=== PATIENT | female | born 1945 | race Caucasian/White ===

== ENCOUNTER → 2017-10-04 16:23 | Outpatient (CLI) | payer MEDICARE, OTHER, SELFPAY ==
[2017-10-04 17:26] LABS: Add Manual Diff / Slide Review NO; Basophils Percent Auto 0.4 % (0-2); Eosinophils Percent Auto 0.7 % (2-4); Hematocrit 34.1 % (36-46); Hemoglobin 11.1 g/dL (12.0-16.0); Lymphocytes Percent Auto 13.4 % (25-40); Mean Corpuscular HGB Conc 32.7 % (30-36); Mean Corpuscular Hemoglobin 31.7 PG (26-34); Mean Corpuscular Volume 96.9 fL (80-100); Monocytes Percent Auto 6.3 % (3-14); Neutrophils Absolute Auto 9500 /uL (3000-5900); Neutrophils Percent Auto 79.2 % (50-75); Platelet Count 336 X10^3/uL (150-400); Red Blood Cell Count 3.52 X10^6/uL (4.0-5.2); Red Cell Distribution Width 14.5 % (11.6-14.8)
== END ==
PROVIDERS: Family Provider Family Medicine; PCP Family Medicine; Visit Provider Family Medicine
DX: D63.8 Anemia in other chronic diseases classified elsewhere (principal)
CPT/HCPCS: 36415; 85025

== ENCOUNTER → 2017-10-23 11:51 | Outpatient (CLI) | payer MEDICARE, OTHER, SELFPAY ==
[2017-10-23 13:06] LABS: Add Manual Diff / Slide Review NO; Basophils Percent Auto 0.3 % (0-2); Eosinophils Percent Auto 0.3 % (2-4); Hematocrit 33.3 % (36-46); Lymphocytes Percent Auto 8.2 % (25-40); Mean Corpuscular HGB Conc 33.1 % (30-36); Mean Corpuscular Hemoglobin 32.4 PG (26-34); Mean Corpuscular Volume 97.7 fL (80-100); Monocytes Percent Auto 5.4 % (3-14); Neutrophils Absolute Auto 9100 /uL (3000-5900); Neutrophils Percent Auto 85.8 % (50-75); Platelet Count 312 X10^3/uL (150-400); Red Blood Cell Count 3.41 X10^6/uL (4.0-5.2); Red Cell Distribution Width 14.7 % (11.6-14.8); White Blood Cell Count 10.6 X10^3/uL (4.5-11.0)
[2017-10-23 14:17] LABS: Alanine Aminotransferase 32 IU/L (9-52); Albumin 4.4 g/dL (3.5-5.0); Albumin Globulin Ratio 1.7 (1.0-2.8); Alkaline Phosphatase 48 U/L (38-126); Aspartate Aminotransferase 19 IU/L (14-36); BUN Creatinine Ratio 21.1 (6-22); Bilirubin Total 0.4 mg/dL (0.2-1.3); Blood Urea Nitrogen 19 mg/dL (7-17); Calcium 9.9 mg/dL (8.4-10.2); Carbon Dioxide 25 mmol/L (22-32); Chloride 105 mmol/L (98-107); Estimated Glomerular Filt Rate > 60.0 mL/min (>60); Globulin 2.6 g/dL (1.7-4.1); Glucose 96 mg/dL (80-110); HEMOLYSIS < 15 (0-50); Potassium 5.1 mmol/L (3.4-5.1); Sodium 142 mmol/L (137-145)
[2017-10-23 14:43] LABS: C-Reactive Protein Quant < 0.5 mg/dL (<1.0)
== END ==
PROVIDERS: Family Provider Family Medicine; PCP Family Medicine
DX: M05.79 Rheumatoid arthritis with rheumatoid factor of multiple sites without organ or systems involvement (principal); Z51.81 Encounter for therapeutic drug level monitoring; Z79.899 Other long term (current) drug therapy
CPT/HCPCS: 36415; 80053; 85025; 86140

== ENCOUNTER 2017-12-05 13:01 | Inpatient (IN) | payer MEDICARE, OTHER, SELFPAY ==
[2017-12-05] VITALS (12 sets, daily range): BP systolic 138–224; BP diastolic 59–89; PULSE 72–83; RESP 13–24; TEMP 36.9; O2SAT 95–99; BMI 22.4
--- NOTE | 2017-12-05 13:27 | PC.NURSE ---
Pt C/o 8/10 pain in her head, both in the front above her left eye as well as in the back of her head on the left. Pt states she has onset of confusion, and difficulty finding words approximately one hour [employer]. Per daughter pt had difficulty getting dressed and finding her words. Per daughter pt has HX of HTN, and hemorragic stroke as well as a TIA. Pt able to follow all commands.
--- NOTE | 2017-12-05 13:47 | ED.NEUROSD ---
HPI - Neuro Symptoms/Deficit General Chief Complaint: Neuro Symptoms/Deficit Stated Complaint: DIARRHEA/SLURRED SPEECH Time Seen by Provider: 12/05/17 13:17 Source: patient Mode of arrival: ambulatory Limitations: no limitations History of Present Illness HPI Narrative: Patient is a 72-year-old female who presents with slurring of speech. It started about 1 hr ago lasted for 30 min and has now resolved. 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 Daughter says that she last saw her normal last evening. However her saw her normal sometime this morning. Daughter witnessed this slurring speech and difficulty finding words. She did not have any facial drooping unilateral weakness. She has peripheral vision loss bilaterally from her previous stroke. She denies any chest pain shortness of breath lightheadedness dizziness nausea vomiting. Timing confirmed by: family member Location: speech History of same: No Severity: mild On Anticoagulants: No Related Data Home Medications Medication Instructions Recorded Confirmed [biotin] #0 02/08/17 10/03/17 prednisone 1 mg tablet 3 mg PO DAILY tab 10/03/17 12/05/17 diphenhydramine HCl [Benadryl] 50 mg PO BEDTIME PRN 12/05/17 12/05/17 Previous Rx's Medication Instructions Recorded Spacer: Inhaler Spacer Device ea #1 02/08/17 gabapentin [Neurontin] 300 mg PO SEE INSTRUCTIONS #180 cap 04/04/17 losartan 50 mg PO BID #90 tab 04/04/17 triamcinolone acetonide 0 gm TOPICAL BID #1 tube 05/02/17 amlodipine [Norvasc] 5 mg PO QDAY #90 tab 05/21/17 oxybutynin chloride 5 mg PO BID #60 tab 08/09/17 escitalopram oxalate [Lexapro] 10 mg PO Q DAY #90 tab 10/02/17 spironolacton-hydrochlorothiaz 1 tab PO QDAY #90 tab 10/02/17 [Aldactazide] atorvastatin 40 mg PO HS #90 tab 10/04/17 omeprazole 20 mg PO QDAY #90 cap 10/16/17 potassium chloride [Klor-Con M20] 40 meq PO BID #360 ter 10/29/17 magnesium chloride 128 mg PO BID #120 tab 11/27/17 Allergies Allergy/AdvReac Type Severity Reaction Status Date / Time Penicillins [PENICILLINS] Allergy Mild ITCH/EARS Verified 10/03/17 16:25 FEEL FULL Sulfa (Sulfonamide Allergy Mild ITCH/EAR Verified 10/03/17 16:25 Antibiotics) FEEL FULL cephalexin [CEPHALEXIN] Allergy Unknown unknown Verified 10/03/17 16:25 coconut oil [COCONUT OIL] Allergy Unknown rash, Verified 10/03/17 16:25 itching Review of Systems Review of Systems GENERAL: Denies chills, fatigue, malaise, fever, sweats, travel HEENT: Denies sinus pain, ear pain, sore throat, difficulty swallowing, neck pain RESPIRATORY: Denies dyspnea, cough, wheezing, hemoptysis, sputum. CARDIOVASCULAR: Denies chest pain, palpitations, orthopnea, edema GASTROINTESTINAL: Denies nausea, vomiting, abdominal pain, diarrhea, constipation, melena. : Denies dysuria, frequency, incontinence, hematuria, urinary retention, flank pain. MUSCULOSKELETAL: Denies weakness, joint pain, or bony pain SKIN: No rash, no erythema, no pruritus NEUROLOGIC: See HPI PSYCHIATRIC: No concerning psychosocial issues. 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) Chronic kidney disease (CKD) stage G3a/A2, moderately decreased glomerular filtration rate (GFR) between 45-59 mL/min/1.73 square meter and albuminuria creatinine ratio between 30-299 mg/g (Chronic 11/18/14) Asthma due to seasonal allergies (Chronic 06/04/15) Eczema (Chronic 03/08/16) Chronic disease anemia (Chronic 07/04/17) Anxiety (Chronic ~1999) Cataract (Chronic ~1998) Eczema (Chronic) Fecal incontinence (Chronic) Hearing loss (Chronic ~1998) Hyperlipidemia (Chronic ~1998) Hypertension (Chronic) Rheumatoid arthritis (Chronic ~1979) Seasonal allergies (Chronic ~2012) Urinary incontinence (Chronic) Vision abnormalities (Chronic) Body mass index (BMI) of 25.0 to 29.9 (Resolved 04/23/14) Chickenpox (Resolved ~1951) Ischemic stroke (Resolved ~2013) Measles (Resolved ~1951) Mumps (Resolved ~1951) Rubella (Resolved ~1951) Surgical History History of ectopic (Resolved ~1971) History of cataract removal with insertion of prosthetic lens (~2015) History of third molar tooth extraction (~1994) History of tonsillectomy (~1951) S/P total abdominal hysterectomy and bilateral salpingo-oophorectomy (~1973) Status post appendectomy (~1973) Status post bunionectomy (~2004) Status post cholecystectomy (~1994) Family History Child Melanoma Social History Smoking Status: Former smoker Exam Initial Vital Signs Initial Vital Signs: Vital Signs Temperature 98.4 F 12/05/17 13:14 Pulse Rate 81 12/05/17 13:14 Respiratory Rate 20 12/05/17 13:14 Blood Pressure 212/88 H 12/05/17 13:14 Pulse Oximetry 96 12/05/17 13:14 GENERAL: Well-appearing, well-nourished and in no acute distress. HEENT: Head atraumatic,EOMI, pupils reactive CARDIOVASCULAR: Regular rate and rhythm without murmurs, rubs or gallops. RESPIRATORY: Breath sounds equal bilaterally, no wheezes rales or rhonchi. ABDOMEN: Soft, nontender. Normoactive bowel sounds all 4 quadrants. No guarding or rebound. : No CVA tenderness EXTREMITIES: Normal range of motion, no clubbing or edema. Neurovascularly intact NEUROLOGICAL: Alert and oriented x4.Normal gait and speech. Cranial nerves II through XII grossly intact. Good [id number], good [id number], strength equal bilaterally, no dysarthria or aphasia, sensation in tact to soft touch bilaterally, no visual changes, no facial droop SKIN: Warm, dry, no laceration, no petechiae, no rashes or lesions. Neuro General: alert, awake and oriented x3 Cranial Nerves: CN's II-XI intact bilaterally and PERRL Cognition: normal cognition Speech: speech normal Gait: normal gait Motor: muscle tone normal throughout and strength 5/5 throughout Sensory Exam: no sensory deficits noted Scores NIH Stroke Scale Level of Conciousness: Alert, keenly responsive Ask month/age: Answers both questions correctly. Open/close eyes, close hand: Performs both tasks correctly Best gaze horizontal: Normal Visual padron: No visual loss Facial palsy: Normal symetrical movement Left arm drift: No drift for full 10 sec Right arm drift: No drift for full 10 sec Left leg drift: No drift for full 10 sec Right leg drift: No drift for full 10 sec Limb ataxia: Absent Sensory on face/arms/legs: Normal, no sensory loss Best language: No aphasia, normal Dysarthria: Normal Extinction or inattention: No abnormality Total NIH Stroke scale score: 0 Course Orders Ordered: ED Orders 12/05/17 13:24 Complete Blood Count AUTO DIFF Stat Comprehensive Metabolic Panel Stat Partial Thromboplastin Time Stat Prothrombin Time INR Stat Troponin I Stat 12/05/17 13:46 EKG-12 Lead Stat 12/05/17 14:10 CT head/brain wo con Stat 12/05/17 18:00 CT head/brain wo con Stat 12/05/17 19:11 Consult to Physician Routine 12/06/17 07:00 MR stroke Stat Discontinued Medications Acetaminophen (Tylenol) 650 mg PO NOW ONE Stop: 12/05/17 15:02 Last Admin: 12/05/17 15:13 Dose: 650 mg Amlodipine Besylate (Norvasc) 5 mg PO NOW ONE Stop: 12/05/17 15:01 Last Admin: 12/05/17 15:14 Dose: 5 mg Aspirin (Aspirin Chew) 324 mg PO NOW ONE Stop: 12/05/17 18:39 Last Admin: 12/05/17 18:40 Dose: 324 mg Sodium Chloride (Normal Saline 0.9%) 1,000 mls @ 150 mls/hr IV CONT YADY Last Infusion: 12/05/17 18:34 Dose: 150 mls/hr Admin: 12/05/17 14:30 Dose: 150 mls/hr Labetalol HCl (Normodyne) 20 mg IV NOW ONE Stop: 12/05/17 14:16 Last Admin: 12/05/17 15:15 Dose: Not Given Losartan Potassium (Cozaar) 50 mg PO NOW ONE Stop: 12/05/17 15:01 Last Admin: 12/05/17 15:14 Dose: 50 mg Vital Signs - 8 hr 12/05/17 13:14 12/05/17 13:24 12/05/17 13:32 Temperature 98.4 F Pulse Rate 81 81 Respiratory Rate 20 18 Blood Pressure 212/88 H Blood Pressure [Left Arm] 224/89 H 199/72 H Pulse Oximetry 96 95 12/05/17 14:00 12/05/17 14:42 12/05/17 15:14 Temperature Pulse Rate 81 79 80 Respiratory Rate 13 16 Blood Pressure 142/64 H Blood Pressure [Left Arm] 204/63 H 151/71 H Pulse Oximetry 97 97 12/05/17 16:19 12/05/17 17:02 12/05/17 17:54 Temperature Pulse Rate 81 75 Respiratory Rate 24 24 Blood Pressure Blood Pressure [Left Arm] 143/63 H 148/59 H 138/61 H Pulse Oximetry 95 97 12/05/17 18:08 12/05/17 18:32 12/05/17 19:00 Temperature 98.5 F Pulse Rate 83 74 72 Respiratory Rate 15 17 Blood Pressure 155/68 H 165/79 H Blood Pressure [Left Arm] 138/61 H Pulse Oximetry 99 99 97 MDM - Neuro Symptoms/Deficit Lab Data Attestation: I reviewed the patient's lab results. Result diagrams: 12/05/17 13:24 12/05/17 13:24 Lab Results 12/05/17 12/05/17 12/05/17 Range/Units 13:24 13:24 13:24 WBC 9.6 (4.5-11.0) X10^3/uL RBC 3.84 L (4.0-5.2) X10^6/uL Hgb 12.6 (12.0-16.0) g/dL Hct 37.2 (36-46) % MCV 96.9 (80-100) fL MCH 32.7 (26-34) PG MCHC 33.7 (30-36) % RDW 13.5 (11.6-14.8) % Plt Count 320 (150-400) X10^3/uL Neut % (Auto) 73.1 (50-75) % Lymph % (Auto) 15.1 L (25-40) % [place] % (Auto) 9.5 (3-14) % Eos % (Auto) 1.7 L (2-4) % Baso % (Auto) 0.6 (0-2) % Neut # (Auto) 7000 H (1965-3044) /uL PT 11.9 (10.1-12.7) SECONDS INR 1.1 (0.9-1.3) APTT 30 (26.4-36.2) SECONDS Sodium 142 (137-145) mmol/L Potassium 3.5 (3.4-5.1) mmol/L Chloride 103 (98-107) mmol/L Carbon Dioxide 28 (22-32) mmol/L BUN 16 (7-17) mg/dL Creatinine 0.90 (0.52-1.04) mg/dL Estimated GFR > 60.0 (>60) mL/min BUN/Creatinine Ratio 17.8 (6-22) Glucose 106 (80-110) mg/dL Calcium 10.0 (8.4-10.2) mg/dL Total Bilirubin 0.6 (0.2-1.3) mg/dL AST 24 (14-36) IU/L ALT 26 (9-52) IU/L Alkaline Phosphatase 52 (38-126) U/L Troponin I < 0.012 (0.01-0.034) ng/mL Total Protein 7.4 (6.3-8.2) g/dL Albumin 4.4 (3.5-5.0) g/dL Globulin 3.0 (1.7-4.1) g/dL Albumin/Globulin Ratio 1.5 (1.0-2.8) Imaging Data CT HEad #1: Radiologist's impression: PROCEDURE: CT HEAD/BRAIN WO CON INDICATIONS: slurring of speech now resolved, hx hemorrhagic cerebellar TECHNIQUE: Noncontrast 4.5 mm thick angled axial sections acquired from the foramen magnum to the vertex, with coronal and sagittal reformats. For radiation dose reduction, the following was used: automated exposure control, adjustment of mA and/or kV according to patient size. COMPARISON: [facility], CT, HEAD WITHOUT CONTRAST, 11/01/2015, 23:53. [facility], CT, HEAD WITHOUT CONTRAST, 07/14/2013, 12:05. [facility], CT, HEAD WITHOUT CONTRAST, 05/06/2013, 10:38. [facility], CT, HEAD WITHOUT CONTRAST, 03/19/2013, 3:09. FINDINGS: Image quality: Excellent. CSF spaces: Basal cisterns are patent. No extra-axial fluid collections. Ventricles are normal in size and shape. Brain: Old right temporal subdural lobe encephalomalacia. There is a 3 mm focus of increased density in the right temporal lobe (se 4 im 39). Punctate foci of calcification in the right frontal lobe. There is generalized cerebral and cerebellar atrophy with low density in the subcortical and periventricular white matter. Skull and face: Calvarium and visualized facial bones are intact, without suspicious lesions. Bilateral frontal bone david holes. Sinuses: Visualized sinuses and mastoids are clear. IMPRESSION: 1. There is a 3 mm area of indeterminate increased density in the right temporal lobe which likely represents parenchymal calcification although a tiny focus of hemorrhage cannot be excluded. Recommend a followup head CT in 6-12 hours for differentiation. 2. Old right temporo-occipital lobe encephalomalacia. Generalized cerebral and cerebellar atrophy with chronic benign ischemic change in the subcortical and periventricular white matter. Dictated by: Ricky Wilson M.D. on 12/05/2017 at 14:16 Ct Head #2: Radiologist's impression: [place] [address] CT Scan Report Signed Patient: Bridget Rodas MR#: [id number] : 1945 Acct:[id number] Age/Sex: 72 / F Date of Service: 12/05/17 Loc: ED Accession Number: [id number] Procedure: CT head/brain wo con Ordering Provider: Amie Bates D.O. PROCEDURE: CT HEAD/BRAIN WO CON INDICATIONS: repeat for possible bleed. history of bleed TECHNIQUE: Noncontrast 4.5 mm thick angled axial sections acquired from the foramen magnum to the vertex, with coronal and sagittal reformats. For radiation dose reduction, the following was used: automated exposure control, adjustment of mA and/or kV according to patient size. COMPARISON: [facility], CT, CT HEAD/BRAIN WO CON, 12/05/2017, 14:02. FINDINGS: Image quality: Excellent. CSF spaces: Basal cisterns are patent. No extra-axial fluid collections. The ventricles are unchanged in size and shape. There is ex vacuo dilatation of the posterior horn of the right lateral ventricle redemonstrated. Brain: No intracranial hemorrhage, mass, or mass effect. The small focus of high density in the right temporal lobe seen on the prior study is unchanged in size and morphology consistent with calcification, likely dystrophic. There is encephalomalacia within the right posterior parietal, temporal, and occipital lobes redemonstrated consistent with a prior infarct. A small region of encephalomalacia is also noted in the right frontal lobe. Bilateral subcortical and periventricular areas of white matter T2 hyperintensity also redemonstrated consistent with moderate chronic white matter small vessel ischemic changes. Skull and face: Calvarium and visualized facial bones demonstrate no acute fractures. There are bilateral frontal david holes. Sinuses: Visualized sinuses and mastoids are clear. IMPRESSION: 1. No acute intracranial hemorrhage or mass effect. The previously identified focus of hyperdensity in the right temporal lobe is unchanged and consistent with probable dystrophic calcification. 2. Right sided encephalomalacia redemonstrated consistent with a prior infarct. 3. Moderate chronic white matter small vessel ischemic changes. ECG Data Attestation: I personally reviewed and interpreted this ECG as follows: Prior ECG tracings: available for review Interpretation: Sinus rhythm rate 83 no acute ischemia normal intervals, IA interval 157, QRS [address] changes MDM Narrative Medical decision making narrative: The patient has symptoms consistent with TIA. She will be placed in observation for further evaluation. I have spoken with Dr. Matt after the initial head CT. Awaiting repeat head CT. Dr. Perdue has been updated a.m. patient's signs and symptoms all on the test results. Repeat head CT remained stable in the likely of an acute bleed. Discharge Plan Departure Patient Disposition: Admitted as Observation Clinical Impression: Brain TIA Discharge Date/Time: 12/05/17 19:29 Interventions: ED Discharge Assessment Last Done: 12/05/17 18:41 Admit Date/Time: 12/05/17 19:06 Admit Provider: Hudson Perdue
[2017-12-05 13:57] LABS: Add Manual Diff / Slide Review NO; Basophils Percent Auto 0.6 % (0-2); Eosinophils Percent Auto 1.7 % (2-4); Hematocrit 37.2 % (36-46); Hemoglobin 12.6 g/dL (12.0-16.0); Lymphocytes Percent Auto 15.1 % (25-40); Mean Corpuscular HGB Conc 33.7 % (30-36); Mean Corpuscular Hemoglobin 32.7 PG (26-34); Mean Corpuscular Volume 96.9 fL (80-100); Monocytes Percent Auto 9.5 % (3-14); Neutrophils Absolute Auto 7000 /uL (3000-5900); Neutrophils Percent Auto 73.1 % (50-75); Platelet Count 320 X10^3/uL (150-400); Red Blood Cell Count 3.84 X10^6/uL (4.0-5.2); Red Cell Distribution Width 13.5 % (11.6-14.8); White Blood Cell Count 9.6 X10^3/uL (4.5-11.0)
[2017-12-05 13:58] LABS: INR 1.1 (0.9-1.3); Prothrombin Time 11.9 SECONDS (10.1-12.7)
[2017-12-05 14:01] LABS: PTT Partial Thromboplastin Tim 30 SECONDS (26.4-36.2)
[2017-12-05 14:02] LABS: Alanine Aminotransferase 26 IU/L (9-52); Albumin 4.4 g/dL (3.5-5.0); Albumin Globulin Ratio 1.5 (1.0-2.8); Alkaline Phosphatase 52 U/L (38-126); Aspartate Aminotransferase 24 IU/L (14-36); BUN Creatinine Ratio 17.8 (6-22); Bilirubin Total 0.6 mg/dL (0.2-1.3); Blood Urea Nitrogen 16 mg/dL (7-17); Carbon Dioxide 28 mmol/L (22-32); Chloride 103 mmol/L (98-107); Estimated Glomerular Filt Rate > 60.0 mL/min (>60); Glucose 106 mg/dL (80-110); HEMOLYSIS < 15 (0-50); Potassium 3.5 mmol/L (3.4-5.1); Sodium 142 mmol/L (137-145); Total Protein 7.4 g/dL (6.3-8.2)
--- NOTE | 2017-12-05 14:10 | DI.CT.S_ITS ---
PROCEDURE: CT HEAD/BRAIN WO CON INDICATIONS: slurring of speech now resolved, hx hemorrhagic cerebellar TECHNIQUE: Noncontrast 4.5 mm thick angled axial sections acquired from the foramen magnum to the vertex, with coronal and sagittal reformats. For radiation dose reduction, the following was used: automated exposure control, adjustment of mA and/or kV according to patient size. COMPARISON: [facility], CT, HEAD WITHOUT CONTRAST, 11/01/2015, 23:53. [facility], CT, HEAD WITHOUT CONTRAST, 07/14/2013, 12:05. [facility], CT, HEAD WITHOUT CONTRAST, 05/06/2013, 10:38. [facility], CT, HEAD WITHOUT CONTRAST, 03/19/2013, 3:09. FINDINGS: Image quality: Excellent. CSF spaces: Basal cisterns are patent. No extra-axial fluid collections. Ventricles are normal in size and shape. Brain: Old right temporal subdural lobe encephalomalacia. There is a 3 mm focus of increased density in the right temporal lobe (se 4 im 39). Punctate foci of calcification in the right frontal lobe. There is generalized cerebral and cerebellar atrophy with low density in the subcortical and periventricular white matter. Skull and face: Calvarium and visualized facial bones are intact, without suspicious lesions. Bilateral frontal bone david holes. Sinuses: Visualized sinuses and mastoids are clear. IMPRESSION: 1. There is a 3 mm area of indeterminate increased density in the right temporal lobe which likely represents parenchymal calcification although a tiny focus of hemorrhage cannot be excluded. Recommend a followup head CT in 6-12 hours for differentiation. 2. Old right temporo-occipital lobe encephalomalacia. Generalized cerebral and cerebellar atrophy with chronic benign ischemic change in the subcortical and periventricular white matter. Dictated by: Ricky Wilson M.D. on 12/05/2017 at 14:16 Approved by: Ricky Wilson M.D. on 12/05/2017 at 14:25
[2017-12-05 14:17] LABS: Troponin I < 0.012 ng/mL (0.01-0.034)
[2017-12-05] MEDS: SODIUM CHLORIDE 0.9% 1,000 ML 150 ML IV (14:30)
--- NOTE | 2017-12-05 14:40 | PC.NURSE ---
Per Pt. headache pain is starting to decrease but still rates pain at 8/10. B/P is lower. 151/71. Per physician held labetalol. Will continue to monitor b/p.
[2017-12-05] MEDS: ACETAMINOPHEN 325 MG TABLET 650 MG PO (15:13)
[2017-12-05] MEDS: AMLODIPINE 2.5 MG TABLET 5 MG PO (15:14)
[2017-12-05] MEDS: LOSARTAN 50 MG TABLET PO (15:14)
--- NOTE | 2017-12-05 18:00 | DI.CT.S_ITS ---
PROCEDURE: CT HEAD/BRAIN WO CON INDICATIONS: repeat for possible bleed. history of bleed TECHNIQUE: Noncontrast 4.5 mm thick angled axial sections acquired from the foramen magnum to the vertex, with coronal and sagittal reformats. For radiation dose reduction, the following was used: automated exposure control, adjustment of mA and/or kV according to patient size. COMPARISON: [facility], CT, CT HEAD/BRAIN WO CON, 12/05/2017, 14:02. FINDINGS: Image quality: Excellent. CSF spaces: Basal cisterns are patent. No extra-axial fluid collections. The ventricles are unchanged in size and shape. There is ex vacuo dilatation of the posterior horn of the right lateral ventricle redemonstrated. Brain: No intracranial hemorrhage, mass, or mass effect. The small focus of high density in the right temporal lobe seen on the prior study is unchanged in size and morphology consistent with calcification, likely dystrophic. There is encephalomalacia within the right posterior parietal, temporal, and occipital lobes redemonstrated consistent with a prior infarct. A small region of encephalomalacia is also noted in the right frontal lobe. Bilateral subcortical and periventricular areas of white matter T2 hyperintensity also redemonstrated consistent with moderate chronic white matter small vessel ischemic changes. Skull and face: Calvarium and visualized facial bones demonstrate no acute fractures. There are bilateral frontal david holes. Sinuses: Visualized sinuses and mastoids are clear. IMPRESSION: 1. No acute intracranial hemorrhage or mass effect. The previously identified focus of hyperdensity in the right temporal lobe is unchanged and consistent with probable dystrophic calcification. 2. Right sided encephalomalacia redemonstrated consistent with a prior infarct. 3. Moderate chronic white matter small vessel ischemic changes. Dictated by: Darron Willis M.D. on 12/05/2017 at 18:13 Approved by: Darron Willis M.D. on 12/05/2017 at 18:21
[2017-12-05] MEDS: ASPIRIN 81 MG TAB 324 MG PO (18:40)
--- NOTE | 2017-12-05 19:44 | PC.NURSE ---
Joseline shift note: 190 patient admitted to from acute care in stable condition. Awake, alert, oriented x 3. Appears forgetful, daughter and patient states forgetfulness has been going on in the past months. No motor or sensory deficit, expresses self, no slurred speech, no difficulty swallowing. No peripheral vision, this is a deficit from a past hemorrhagic stroke. VSS, No dizziness, or blurry vision. No c/o pain or headache. Patient pleasant, asking appropriate questions. Call light within reach.
[2017-12-06] VITALS (7 sets, daily range): BP systolic 142–160; BP diastolic 62–82; PULSE 72–81; RESP 12–18; TEMP 36.2–36.8; O2SAT 94–98
--- NOTE | 2017-12-06 | DI.ECHO.S_ITS ---
[facility]+ [facility] +---------+ : : [address] : : : : [id number] : : : : Phone: [phone] Echocardiogram Report + + :Name: DAPHNEY RAI Study Date: 12/06/2017 Height: 63 in : :[facility] Exam Location: [facility] Weight: 126 lb : : Gender: Female BSA: 1.6 m2 : :: 1945 Age: 72 yrs BP: 155/77 mmHg: :Reason For Study: MURMUR : : Performed By: Italo Cee : :Referring: LYNNE DAVIS : + + Interpretation Summary The left ventricular cavity is small. There is moderate concentric left ventricular hypertrophy. The ejection fraction is estimated to be >80%. The left ventricle is hyperdynamic. Assessment of diastolic parameters indicates a relaxation abnormality of the left ventricle, consistent with normal filling pressures. There is mild aortic stenosis. No other echocardiographic abnormalities seen. Procedure: A two-dimensional transthoracic echocardiogram with color flow and Doppler was performed. The study quality was technically adequate. There is no prior echocardiogram noted for this patient. The patient was in normal sinus rhythm during the exam. Left Ventricle: The left ventricular cavity is small. There is moderate concentric left ventricular hypertrophy. The ejection fraction is estimated to be >80%. The left ventricle is hyperdynamic. There are no focal wall motion abnormalities. Assessment of diastolic parameters indicates a relaxation abnormality of the left ventricle, consistent with normal filling pressures. Right Ventricle: The right ventricle is normal in size and function. Atria: Both atria are normal in size. The interatrial septum is intact with no evidence for an atrial septal defect. Mitral Valve: There is moderate mitral annular calcification. The mitral valve leaflets are slightly calcified. There is trace mitral regurgitation. Aortic Valve: The aortic valve is trileaflet. The aortic valve is mildly calcified. Leaflet mobility is mildly reduced. The peak aortic velocity is 2.01 m/sec. The calculated aortic valve area is 1.7 cm2. There is mild aortic stenosis. No aortic regurgitation is present. Tricuspid Valve: The tricuspid valve is normal in structure and function. There is trace tricuspid regurgitation. Pulmonary artery pressures cannot be estimated because of the lack of a measurable TR jet velocity. Pulmonic Valve: The pulmonic valve is normal in structure and function. There is no pulmonic valvular regurgitation. Great Vessels: The aortic root is normal size. The dimensions of the ascending aorta are normal. The pulmonary artery is normal size. The IVC is of normal diameter and collapses greater than 50% with a sniff. This suggests a low right atrial pressure of 3 mm Hg. Pericardium/ Pleura There is no pericardial effusion. There is no pleural effusion. MMode/2D Measurements & Calculations LVIDd: 3.0 cm LVOT diam: 2.0 cm LVIDs: 1.2 cm Ao root diam: 3.0 cm FS: 60.2 % Aortic Jxn: 2.5 cm EPSS: 0.07 cm asc Aorta Diam: 3.1 cm IVSd: 1.2 cm Ao Arch Diam (Prox Trans): 2.3 cm LVPWd: 1.1 cm LV ramsay. diameter/BSA (cm/m^2): 1.9 LV sys. diameter/BSA (cm/m^2): 0.75 LA dimension: 3.3 cm RA long axis: 3.0 cm LA A2 area: 15.8 cm2 RA area: 6.6 cm2 LA A4 area: 12.3 cm2 RA vol: 12.5 ml LA length (vol): 3.9 cm RA : 7.8 ml/m2 LA vol: 42.0 ml IVC diam: 1.1 cm LA vol index: 26.4 ml/m2 Doppler Measurements & Calculations Ao V2 max: 201.3 cm/sec LVOT Max Charles: 108.0 cm/sec Ao V2 mean: 139.8 cm/sec LV V1 max P.7 mmHg Ao max P.2 mmHg LV V1 VTI: 22.5 cm Ao mean P.7 mmHg JASON(I,D): 1.6 cm2 Ao V2 VTI: 42.6 cm JASON(V,D): 1.7 cm2 sev ratio: 0.53 JASON indexed to BSA (cm^2/m^2): 1.0 MV E max charles: 81.2 cm/sec PA V2 max: 106.8 cm/sec MV A max charles: 126.9 cm/sec PA V2 mean: 78.3 cm/sec MV E/A: 0.64 PA mean P.7 mmHg Med Peak E' Charles: 17.2 cm/sec PA pr(Accel): 36.6 mmHg E/E' med: 4.7 PA Accel Time: 0.09 sec Lat Peak E' Charles: 5.3 cm/sec E/E' lat: 15.4 E/e' average: 10.1 MV dec time: 0.27 sec MVA(VTI): 2.2 cm2 MV V2 mean: 75.8 cm/sec MV mean P.6 mmHg MV V2 VTI: 31.5 cm Reading Physician:03:02 PM
--- NOTE | 2017-12-06 04:35 | PC.NURSE ---
Addendum entered by Ange Sim R.N. 12/06/17 06:38: Pt OOB [id number], steady gait, did c/o headache, VS checked by AEROPLANE PILOT after resettled back in bed, BP 157/75 Pulse-80. No other complaints. 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 Denies pain,chest pain, nausea, respiratory distress. NIH scale-0, however on the Name List sheet, pt unable to recognize the cactus picture as is, stated was a plant. And was able to state there was a tree in the picture but unable to recognize the hammock stating it looked like a bird. Asked pt if she needed to wear her glasses, she didn't need to. Pt able to read the sentences and word list without difficulty. No slurred speech. Pt states feeling asymptomatic. Does have history of peripheral vision loss from previous stroke and pt confirms this. On telemetry monitoring. OOB to BR with SBA with steady gait. MRI screen form completed and signed, in patients chart.
--- NOTE | 2017-12-06 07:00 | DI.MRI.S_ITS ---
PROCEDURE: MR STROKE Pre- and post-contrast brain MRI, non-contrast brain MR angiogram, pre- and postcontrast neck MR angiogram INDICATIONS: tia TECHNIQUE: Brain: Noncontrast axial T1 spin echo, axial T2 fast spin echo, sagittal and axial FLAIR, coronal T2 fast spin echo, axial gradient echo, axial diffusion and ADC through the brain. After the administration of contrast, axial 3D VIBE of the cranial vasculature and brain. Brain MRA: Non-contrast 3-D time of flight MR angiogram, with multiple wcylxsv-zrcgcyawl-isjeepbjtw (MIP) reformats performed. Neck MRA: Axial and sagittal TruFISP through the neck. Coronal dynamic MR angiogram during administration of contrast in the arterial and venous phases, with 3-dimenstional fayqcqc-womfzvizk-kekmpryhiz (MIP) reformats constructed from subtraction images. COMPARISON: [facility], CT, HEAD WITHOUT CONTRAST, 03/19/2013, 3:09. [facility], CT, HEAD WITHOUT CONTRAST, 05/06/2013, 10:38. [facility], MR, BRAIN W&WO CONTRAST, 05/07/2013, 7:30. [facility], CT, CT HEAD/BRAIN WO CON, 12/05/2017, 17:52. FINDINGS: Image quality: Diagnostic. BRAIN: CSF spaces: There is ex vacuo dilatation of the posterior horn of the right lateral ventricle redemonstrated secondary to associated encephalomalacia. There is also generalized mild cerebral volume loss with prominence of the ventricles and sulci. Basal cisterns are patent. No extra-axial fluid collections. Brain: Within the right temporal lobe, there is an ovoid region of cortical and subcortical T2 hyperintensity measuring up to 1.6 x 0.9 cm with a low intensity rim which demonstrates corresponding magnetic susceptibility. The region demonstrates intrinsic T1 hyperintensity. The findings are consistent with a hematoma which is new compared to the recent CT. Finding is separate from the small hyperdense focus of calcification seen on the CT study. In addition, this region demonstrates restricted diffusion with hypointense signal noted on the ADC map compatible with an associated infarct. There is a large area of encephalomalacia redemonstrated within the posterior right parietal, temporal, and occipital lobes. There is associated magnetic susceptibility artifact along the margins of this region consistent with residual hemosiderin from prior intraventricular hemorrhage. In addition, there are scattered small foci of cortical and subcortical magnetic susceptibility bilaterally on the GRE sequence suggestive of amyloid given patient's age and the distribution. There are confluent areas of T2 hyperintensity in the subcortical and periventricular white matter consistent with moderate chronic small vessel ischemic changes. Brain stem appears within normal limits. Skull and face: Calvarial marrow signal is normal. Orbits appear normal. Sinuses: Sinuses and mastoids are clear. BRAIN MR ANGIOGRAM: Anterior circulation: Intracranial internal carotid arteries are normal in size and patent bilaterally. The flow within the paired anterior cerebral arteries is symmetric and patent bilaterally. The flow within the middle cerebral arteries is symmetric and patent bilaterally. The anterior communicating artery is patent. No high-grade stenoses, occlusions, or aneurysms. Posterior circulation: The visualized portions of the vertebral arteries are patent and join to form a patent basilar artery. The flow within the posterior cerebral arteries is symmetric and patent bilaterally. No high-grade stenoses, occlusions, or aneurysms. NECK MR ANGIOGRAM: Carotids: Great vessels demonstrate a four-vessel aortic arch with separate origins of the right PICC is cephalic, left common carotid, left vertebral, and left subclavian arteries they arise from the aortic arch. The origins of the common carotid arteries appear patent. The calibers and courses of both common carotid arteries are normal. There is mild narrowing of approximately 50% in the carotid bulbs. The internal carotid arteries demonstrate normal course and caliber. Posterior circulation: The origins of the vertebral arteries appear patent. More superior portions of both vertebral arteries demonstrate normal course and caliber, and join to form a normal appearing basilar artery. Miscellaneous: Subclavian arteries appear patent. Pre-contrast images through the neck demonstrate no soft tissue abnormalities. IMPRESSION: BRAIN MRI: 1. New ovoid intraparenchymal hematoma in the right temporal lobe with associated restricted diffusion suggestive of a hemorrhagic infarct. 2. Large area of encephalomalacia redemonstrated in the right posterior parietal, temporal, and occipital lobes. Associated magnetic susceptibility along the margins likely represents residual hemosiderin from prior hemorrhage. 3. Moderate chronic white matter small vessel ischemic changes. 3. Scattered foci of subcortical magnetic susceptibility suggestive of amyloid. BRAIN MR ANGIOGRAM: 1. No high-grade stenosis or occlusion of the central intracranial arteries. NECK MR ANGIOGRAM: 1. No high-grade stenosis or occlusion of the head and neck arteries. There is narrowing of approximately 50% in the carotid bulbs bilaterally. Dictated by: Darron Willis M.D. on 12/06/2017 at 12:14 Approved by: Darron Willis M.D. on 12/06/2017 at 12:34
--- NOTE | 2017-12-06 08:33 | PM.HP.1 ---
History of Present Illness Date Patient Seen: 12/06/17 Time Patient Seen: 08:34 Chief complaint: DIARRHEA/SLURRED SPEECH Narrative: Patient is a 72 yo female well known to me with cerebral amyloid angiopathy, history of ischemic stroke (06/2013) after hemorrhagic stroke (03/2013), rheumatoid arthritis, HTN, CKD, whose daughter brought her to the ED after noticing that she was slurring her speech. Patient felt she was normal on 12/04/2017 in the evening but was experiencing horrible, heartburn. She had worked a normal afternoon at [employer], came home and had an egg sandwich. Went to bed and was listening to her audio tapes when she started having diarrhea. She have several episodes overnight which has spontaneously resolved. She also does report a headache but it's not unlike headaches that she gets on occassion. Mainly occipital on the right. She says that on the evening of 12/02 she ate roast beef sandwich and she also talked to her daughter who lives in [facility] who also ate a roast beef sandwich and had abdominal complaints afterwards. Both of them had but the roast beef at [employer] however different stores. She was seen at [facility] eye clinic just last week and her visual field loss is stable with left sided loss. She was started on some new eye drops. Find herself running to things on the left. Her balance can be off at times and we were going to start physical therapy as outpatient after her last visit. Patient History Medical History Campylobacter diarrhea (Resolved) Essential hypertension (Chronic 04/04/11) Rheumatoid arthritis (Chronic) Intracranial hemorrhage (Acute 03/20/13) Cerebral amyloid angiopathy (Chronic 04/25/13) Sensorineural hearing loss (SNHL) of left ear (Chronic) Anxiety (Chronic 07/24/13) Sleep apnea (Chronic 07/28/13) Mixed stress and urge urinary incontinence (Chronic 01/12/14) 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) Chronic kidney disease (CKD) stage G3a/A2, moderately decreased glomerular filtration rate (GFR) between 45-59 mL/min/1.73 square meter and albuminuria creatinine ratio between 30-299 mg/g (Chronic 11/18/14) Asthma due to seasonal allergies (Chronic 06/04/15) Eczema (Chronic 03/08/16) Chronic disease anemia (Chronic 07/04/17) Anxiety (Chronic ~1999) Cataract (Chronic ~1998) Eczema (Chronic) Fecal incontinence (Chronic) Hearing loss (Chronic ~1998) Hyperlipidemia (Chronic ~1998) Hypertension (Chronic) Rheumatoid arthritis (Chronic ~1979) Seasonal allergies (Chronic ~2012) Urinary incontinence (Chronic) Vision abnormalities (Chronic) Body mass index (BMI) of 25.0 to 29.9 (Resolved 04/23/14) Chickenpox (Resolved ~1951) Ischemic stroke (Resolved ~2013) Measles (Resolved ~1951) Mumps (Resolved ~1951) Rubella (Resolved ~1951) Surgical History History of ectopic (Resolved ~1971) History of cataract removal with insertion of prosthetic lens (~2015) History of third molar tooth extraction (~1994) History of tonsillectomy (~1951) S/P total abdominal hysterectomy and bilateral salpingo-oophorectomy (~1973) Status post appendectomy (~1973) Status post bunionectomy (~2004) Status post cholecystectomy (~1994) Family & Social History Social History: household members children Prior Living Arrangements House Safety & Behavioral: Feels Safe in Current Yes Environment Been Physically Hurt or No Threatened By a Person Suicidal Ideation Description None Suicide Plan Description No Plan Tobacco & Substance use: Smoking Status Former smoker alcohol intake frequency holiday/special occasion Substance Use Type marijuana Meds Home Medications Medication Instructions Recorded Confirmed Type Spacer: Inhaler Spacer Device ea #1 02/08/17 10/03/17 Rx [biotin] #0 02/08/17 10/03/17 History gabapentin [Neurontin] 300 mg PO SEE INSTRUCTIONS #180 cap 04/04/17 12/05/17 Rx losartan 50 mg PO BID #90 tab 04/04/17 12/05/17 Rx triamcinolone acetonide 0 gm TOPICAL BID #1 tube 05/02/17 12/05/17 Rx amlodipine [Norvasc] 5 mg PO QDAY #90 tab 05/21/17 12/05/17 Rx oxybutynin chloride 5 mg PO BID #60 tab 08/09/17 12/05/17 Rx escitalopram oxalate [Lexapro] 10 mg PO Q DAY #90 tab 10/02/17 12/05/17 Rx spironolacton-hydrochlorothiaz 1 tab PO QDAY #90 tab 10/02/17 12/05/17 Rx [Aldactazide] prednisone 1 mg tablet 3 mg PO DAILY tab 10/03/17 12/05/17 History atorvastatin 40 mg PO HS #90 tab 10/04/17 12/05/17 Rx omeprazole 20 mg PO QDAY #90 cap 10/16/17 12/05/17 Rx potassium chloride [Klor-Con M20] 40 meq PO BID #360 ter 10/29/17 12/05/17 Rx magnesium chloride 128 mg PO BID #120 tab 11/27/17 12/05/17 Rx diphenhydramine HCl [Benadryl] 50 mg PO BEDTIME PRN 12/05/17 12/05/17 History Allergies Allergy/AdvReac Type Severity Reaction Status Date / Time Penicillins [PENICILLINS] Allergy Mild ITCH/EARS Verified 10/03/17 16:25 FEEL FULL Sulfa (Sulfonamide Allergy Mild ITCH/EAR Verified 10/03/17 16:25 Antibiotics) FEEL FULL cephalexin [CEPHALEXIN] Allergy Unknown unknown Verified 10/03/17 16:25 coconut oil [COCONUT OIL] Allergy Unknown rash, Verified 10/03/17 16:25 itching Review of Systems Constitutional Constitutional: Denies body ache(s), Denies chills, Denies fever(s) and Reports headache(s) Eyes Eyes: Reports blind spots and Denies change in vision ENT Ears, Nose, Mouth, and Throat: Yes abnormal hearing, No difficulty swallowing, Yes headache(s), No hoarseness, No nasal congestion and No nasal discharge Cardiovascular Cardiovascular: Denies chest pain, Denies fainting, Denies fast heart rate, Denies foot swelling, Denies irregular heart rhythm, Denies shortness of breath, Denies shortness of breath with activity and Denies shortness of breath when lying down Respiratory Respiratory: Denies cough, Denies dyspnea and Denies dyspnea on exertion Gastrointestinal Gastrointestinal: Denies dysphagia, Reports heartburn and Denies vomiting Musculoskeletal Musculoskeletal: Reports abnormal gait Neurologic Neurologic: Reports abnormal hearing, Reports abnormal speech, Reports abnormal gait, Denies behavioral changes, Reports confusion, Denies syncope and Reports headache(s) Psychiatric Psychiatric: Denies behavioral changes, Reports confusion and Denies depression Exam Vital Signs (past 8 hours): - 12/06/17 01:50 12/06/17 05:05 Temperature 98.3 F 98.3 F Pulse Rate 76 80 Respiratory Rate 17 12 Blood Pressure 142/62 H 157/76 H Pulse Oximetry 96 95 Oxygen Delivery Method Room Air Narrative Exam Narrative: General: Well-developed, well-nourished, female, no acute distress, sitting up in bed, conversant. Heart: Regular rate and rhythm, 2 to 3/6 systolic murmur best heard at left lower sternal border Lungs: Clear to auscultation bilaterally, no wheezes, rales or rhonchi Abd: BS+, soft, nontender, nondistended, no rebound, no guarding Extremities: Warm and well perfused, no edema, muscle strength 5/5 Objective Labs Result Diagrams: 12/05/17 13:24 12/05/17 13:24 Labs: Laboratory Results - last 24 hr 12/05/17 12/05/17 12/05/17 13:24 13:24 13:24 WBC 9.6 RBC 3.84 L Hgb 12.6 Hct 37.2 MCV 96.9 MCH 32.7 MCHC 33.7 RDW 13.5 Plt Count 320 Neut % (Auto) 73.1 Lymph % (Auto) 15.1 L Stan[place] % (Auto) 9.5 Eos % (Auto) 1.7 L Baso % (Auto) 0.6 Neut # (Auto) 7000 H PT 11.9 INR 1.1 APTT 30 Sodium 142 Potassium 3.5 Chloride 103 Carbon Dioxide 28 BUN 16 Creatinine 0.90 Estimated GFR > 60.0 BUN/Creatinine Ratio 17.8 Glucose 106 Calcium 10.0 Total Bilirubin 0.6 AST 24 ALT 26 Alkaline Phosphatase 52 Troponin I < 0.012 Total Protein 7.4 Albumin 4.4 Globulin 3.0 Albumin/Globulin Ratio 1.5 Assessment & Plan Plan: Assessment/Plan Narrative: 72-year-old female with history of both hemorrhagic and ischemic stroke with new onset of slurring of speech yesterday after an attack of gastroenteritis. 1. TIA in a high risk patient. Known cerebral amyloid angiopathy. She received a dose of aspirin in the emergency department. Will await her MRI results this morning. Will order PT and OT evaluations as well. 2. Gastroenteritis. Fortunately her symptoms have resolved. 3. Hypertension. Significantly elevated readings on presentation. Will let her blood pressures run on the higher side today. Will adjust her medications at discharge if needed. Code status: Full code DVT prophylaxis: Patient is currently ambulatory. Should patient's MRI showed no new insult will be able to discharge patient home later on today. Scores GCS [place] coma scale eye opening: Spontaneous [place] coma scale verbal response: Orientated [place] coma scale motor response: Obey commands [place]andy coma scale total score: 15 Quality VTE Deep Vein Thrombosis/Pulmonary Embolism Present on Admission: No
--- NOTE | 2017-12-06 08:36 | P.HP_ITS ---
History of Present Illness Date Patient Seen: 12/06/17 Time Patient Seen: 08:34 Chief complaint: DIARRHEA/SLURRED SPEECH Narrative: Patient is a 72 yo female well known to me with cerebral amyloid angiopathy, history of ischemic stroke (06/2013) after hemorrhagic stroke (2012), rheumatoid arthritis, HTN, CKD, whose daughter brought her to the ED after noticing that she was slurring her speech. Patient felt she was normal on 12/04/2017 in the evening but was experiencing horrible, heartburn. She had worked a normal afternoon at [employer], came home and had an egg sandwich. Went to bed and was listening to her audio tapes when she started having diarrhea. She have several episodes overnight which has spontaneously resolved. She also does report a headache but it's not unlike headaches that she gets on occassion. Mainly occipital on the right. She says that on the evening of 12/02 she ate roast beef sandwich and she also talked to her daughter who lives in [facility] who also ate a roast beef sandwich and had abdominal complaints afterwards. Both of them had but the roast beef at [employer] however different stores. She was seen at [facility] just last week and her visual field loss is stable with left sided loss. She was started on some new eye drops. Find herself running to things on the left. Her balance can be off at times and we were going to start physical therapy as outpatient after her last visit. Patient History Medical History Campylobacter diarrhea (Resolved) Essential hypertension (Chronic 04/04/11) Rheumatoid arthritis (Chronic) Intracranial hemorrhage (Acute 03/20/13) Cerebral amyloid angiopathy (Chronic 04/25/13) Sensorineural hearing loss (SNHL) of left ear (Chronic) Anxiety (Chronic 07/24/13) Sleep apnea (Chronic 07/28/13) Mixed stress and urge urinary incontinence (Chronic 01/12/14) 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) Chronic kidney disease (CKD) stage G3a/A2, moderately decreased glomerular filtration rate (GFR) between 45-59 mL/min/1.73 square meter and albuminuria creatinine ratio between 30-299 mg/g (Chronic 11/18/14) Asthma due to seasonal allergies (Chronic 06/04/15) Eczema (Chronic 03/08/16) Chronic disease anemia (Chronic 07/04/17) Anxiety (Chronic ~1999) Cataract (Chronic ~1998) Eczema (Chronic) Fecal incontinence (Chronic) Hearing loss (Chronic ~1998) Hyperlipidemia (Chronic ~1998) Hypertension (Chronic) Rheumatoid arthritis (Chronic ~1979) Seasonal allergies (Chronic ~2012) Urinary incontinence (Chronic) Vision abnormalities (Chronic) Body mass index (BMI) of 25.0 to 29.9 (Resolved 04/23/14) Chickenpox (Resolved ~1951) Ischemic stroke (Resolved ~2013) Measles (Resolved ~1951) Mumps (Resolved ~1951) Rubella (Resolved ~1951) Surgical History History of ectopic (Resolved ~1971) History of cataract removal with insertion of prosthetic lens (~2015) History of third molar tooth extraction (~1994) History of tonsillectomy (~1951) S/P total abdominal hysterectomy and bilateral salpingo-oophorectomy (~1973) Status post appendectomy (~1973) Status post bunionectomy (~2004) Status post cholecystectomy (~1994) Family & Social History Social History: household members children Prior Living Arrangements House Safety & Behavioral: Feels Safe in Current Yes Environment Been Physically Hurt or No Threatened By a Person Suicidal Ideation Description None Suicide Plan Description No Plan Tobacco & Substance use: Smoking Status Former smoker alcohol intake frequency holiday/special occasion Substance Use Type marijuana Meds Home Medications Medication Instructions Recorded Confirmed Type Spacer: Inhaler Spacer Device ea #1 02/08/17 10/03/17 Rx [biotin] #0 02/08/17 10/03/17 History gabapentin [Neurontin] 300 mg PO SEE INSTRUCTIONS #180 cap 04/04/17 12/05/17 Rx losartan 50 mg PO BID #90 tab 04/04/17 12/05/17 Rx triamcinolone acetonide 0 gm TOPICAL BID #1 tube 05/02/17 12/05/17 Rx amlodipine [Norvasc] 5 mg PO QDAY #90 tab 05/21/17 12/05/17 Rx oxybutynin chloride 5 mg PO BID #60 tab 08/09/17 12/05/17 Rx escitalopram oxalate [Lexapro] 10 mg PO Q DAY #90 tab 10/02/17 12/05/17 Rx spironolacton-hydrochlorothiaz 1 tab PO QDAY #90 tab 10/02/17 12/05/17 Rx [Aldactazide] prednisone 1 mg tablet 3 mg PO DAILY tab 10/03/17 12/05/17 History atorvastatin 40 mg PO HS #90 tab 10/04/17 12/05/17 Rx omeprazole 20 mg PO QDAY #90 cap 10/16/17 12/05/17 Rx potassium chloride [Klor-Con M20] 40 meq PO BID #360 ter 10/29/17 12/05/17 Rx magnesium chloride 128 mg PO BID #120 tab 11/27/17 12/05/17 Rx diphenhydramine HCl [Benadryl] 50 mg PO BEDTIME PRN 12/05/17 12/05/17 History Allergies Allergy/AdvReac Type Severity Reaction Status Date / Time Penicillins [PENICILLINS] Allergy Mild ITCH/EARS Verified 10/03/17 16:25 FEEL FULL Sulfa (Sulfonamide Allergy Mild ITCH/EAR Verified 10/03/17 16:25 Antibiotics) FEEL FULL cephalexin [CEPHALEXIN] Allergy Unknown unknown Verified 10/03/17 16:25 coconut oil [COCONUT OIL] Allergy Unknown rash, Verified 10/03/17 16:25 itching Review of Systems Constitutional Constitutional: Denies body ache(s), Denies chills, Denies fever(s) and Reports headache(s) Eyes Eyes: Reports blind spots and Denies change in vision ENT Ears, Nose, Mouth, and Throat: Yes abnormal hearing, No difficulty swallowing, Yes headache(s), No hoarseness, No nasal congestion and No nasal discharge Cardiovascular Cardiovascular: Denies chest pain, Denies fainting, Denies fast heart rate, Denies foot swelling, Denies irregular heart rhythm, Denies shortness of breath , Denies shortness of breath with activity and Denies shortness of breath when lying down Respiratory Respiratory: Denies cough, Denies dyspnea and Denies dyspnea on exertion Gastrointestinal Gastrointestinal: Denies dysphagia, Reports heartburn and Denies vomiting Musculoskeletal Musculoskeletal: Reports abnormal gait Neurologic Neurologic: Reports abnormal hearing, Reports abnormal speech, Reports abnormal gait, Denies behavioral changes, Reports confusion, Denies syncope and Reports headache(s) Psychiatric Psychiatric: Denies behavioral changes, Reports confusion and Denies depression Exam Vital Signs (past 8 hours): - 12/06/17 01:50 12/06/17 05:05 Temperature 98.3 F 98.3 F Pulse Rate 76 80 Respiratory Rate 17 12 Blood Pressure 142/62 H 157/76 H Pulse Oximetry 96 95 Oxygen Delivery Method Room Air Narrative Exam Narrative: General: Well-developed, well-nourished, female, no acute distress, sitting up in bed, conversant. Heart: Regular rate and rhythm, 2 to 3/6 systolic murmur best heard at left lower sternal border Lungs: Clear to auscultation bilaterally, no wheezes, rales or rhonchi Abd: BS+, soft, nontender, nondistended, no rebound, no guarding Extremities: Warm and well perfused, no edema, muscle strength 5/5 Objective Labs Result Diagrams: 12/05/17 13:24 12/05/17 13:24 Labs: Laboratory Results - last 24 hr 12/05/17 12/05/17 12/05/17 13:24 13:24 13:24 WBC 9.6 RBC 3.84 L Hgb 12.6 Hct 37.2 MCV 96.9 MCH 32.7 MCHC 33.7 RDW 13.5 Plt Count 320 Neut % (Auto) 73.1 Lymph % (Auto) 15.1 L Cro[place] % (Auto) 9.5 Eos % (Auto) 1.7 L Baso % (Auto) 0.6 Neut # (Auto) 7000 H PT 11.9 INR 1.1 APTT 30 Sodium 142 Potassium 3.5 Chloride 103 Carbon Dioxide 28 BUN 16 Creatinine 0.90 Estimated GFR > 60.0 BUN/Creatinine Ratio 17.8 Glucose 106 Calcium 10.0 Total Bilirubin 0.6 AST 24 ALT 26 Alkaline Phosphatase 52 Troponin I < 0.012 Total Protein 7.4 Albumin 4.4 Globulin 3.0 Albumin/Globulin Ratio 1.5 Assessment & Plan Plan: Assessment/Plan Narrative: 72-year-old female with history of both hemorrhagic and ischemic stroke with new onset of slurring of speech yesterday after an attack of gastroenteritis. 1. TIA in a high risk patient. Known cerebral amyloid angiopathy. She received a dose of aspirin in the emergency department. Will await her MRI results this morning. Will order PT and OT evaluations as well. 2. Gastroenteritis. Fortunately her symptoms have resolved. 3. Hypertension. Significantly elevated readings on presentation. Will let her blood pressures run on the higher side today. Will adjust her medications at discharge if needed. Code status: Full code DVT prophylaxis: Patient is currently ambulatory. Should patient's MRI showed no new insult will be able to discharge patient home later on today. Scores GCS [place] coma scale eye opening: Spontaneous [place] coma scale verbal response: Orientated [place] coma scale motor response: Obey commands [place] coma scale total score: 15 Quality VTE Deep Vein Thrombosis/Pulmonary Embolism Present on Admission: No
[2017-12-06] MEDS: SODIUM CHLORIDE 0.9% FLUSH 10 ML IV ×2 (09:00→20:05)
--- NOTE | 2017-12-06 11:15 | PC.NURSE ---
Day shift: Pt left unit for MRI at approx 1115. Will return in approx 35 minutes. SL. A&Ox3. No pain. Daughter at bedside for support.
--- NOTE | 2017-12-06 11:27 | ST.IPIE ---
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 and stopped Intracranial hemorrhage (Acute Medical 03/20/13) with micro hemorrhages Cerebral amyloid angiopathy (Chronic Medical 04/25/13) 03/31/2013 Large hemorrhagic stroke to the left temporal occipital area 07/03/2013 ischemic stroke right posterior sella Bellair hemisphere Sensorineural hearing loss (SNHL) of left ear (Chronic Medical) Anxiety (Chronic Medical 07/24/13) Sleep apnea (Chronic Medical 07/28/13) Mixed stress and urge urinary incontinence (Chronic Medical 01/12/14) Mechanical low back pain (Chronic Medical 06/11/14) Chronic kidney disease (CKD) stage G3a/A2, moderately decreased glomerular filtration rate (GFR) between 45-59 mL/min/1.73 square meter and albuminuria creatinine ratio between 30-299 mg/g (Chronic Medical 11/18/14) Asthma due to seasonal allergies (Chronic Medical 06/04/15) Eczema (Chronic Medical 03/08/16) Chronic disease anemia (Chronic Medical 07/04/17) Anxiety (Chronic Medical ~1999) Cataract (Chronic Medical ~1998) Eczema (Chronic Medical) Fecal incontinence (Chronic Medical) Hearing loss (Chronic Medical ~1998) Hyperlipidemia (Chronic Medical ~1998) Hypertension (Chronic Medical) Rheumatoid arthritis (Chronic Medical ~1979) Seasonal allergies (Chronic Medical ~2012) Urinary incontinence (Chronic Medical) Vision abnormalities (Chronic Medical) Body mass index (BMI) of 25.0 to 29.9 (Resolved Medical 04/23/14) Chickenpox (Resolved Medical ~1951) Ischemic stroke (Resolved Medical ~2013) Measles (Resolved Medical ~1951) Mumps (Resolved Medical ~1951) Rubella (Resolved Medical ~1951) ST IP Initial Evaulation Report CASINO MANAGER Language Evaluation Start: 12/06/17 11:20 Freq: Status: Active Protocol: Document 12/06/17 11:21 TLC (Rec: 12/06/17 11:27 TLC [id number]) Language Evaluation Session Time Total Visit Minutes 25 Referral Referring Physician Shaka Reason for Referral Slurred speech & difficulty finding words yesterday Vision Vision Status Impaired Comments Limited left peripheral vision from previous CVA in 2012 Occupational Status 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 - Informal Assessment Receptive Language Normal Yes Expressive Language Normal Yes Articulation Normal Yes Cognition Normal Yes Assessment Findings Patient presents with functional receptive and expressive language and intelligible articulation. Her symptoms of slurred speech and word finding difficulty have completely resolved and she is back to her baseline. She completed divergent and convergent naming tasks without difficulty. She participated in conversational exchange appropriately. - Receptive Language - Expressive Language - Recommendations Recommendations No ST warranted at this time. Patient's speech and language skills are at baseline.
--- NOTE | 2017-12-06 11:50 | PT.IIE ---
Surgical History (Last Updated 10/02/17 @ 15:51 by Vanesa Barton) History of ectopic (Resolved ~1971) History of cataract removal with insertion of prosthetic lens (~2015) History of third molar tooth extraction (~1994) History of tonsillectomy (~1951) S/P total abdominal hysterectomy and bilateral salpingo-oophorectomy (~1973) Status post appendectomy (~1973) Status post bunionectomy (~2004) Status post cholecystectomy (~1994) Medical History (Last Reviewed 12/06/17 @ 08:43 by Ailin Matt DO) Campylobacter diarrhea (Resolved) Essential hypertension (Chronic 04/04/11) Rheumatoid arthritis (Chronic) Intracranial hemorrhage (Acute 03/20/13) Cerebral amyloid angiopathy (Chronic 04/25/13) Sensorineural hearing loss (SNHL) of left ear (Chronic) Anxiety (Chronic 07/24/13) Sleep apnea (Chronic 07/28/13) Mixed stress and urge urinary incontinence (Chronic 01/12/14) 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) Chronic kidney disease (CKD) stage G3a/A2, moderately decreased glomerular filtration rate (GFR) between 45-59 mL/min/1.73 square meter and albuminuria creatinine ratio between 30-299 mg/g (Chronic 11/18/14) Asthma due to seasonal allergies (Chronic 06/04/15) Eczema (Chronic 03/08/16) Chronic disease anemia (Chronic 07/04/17) Anxiety (Chronic ~1999) Cataract (Chronic ~1998) Eczema (Chronic) Fecal incontinence (Chronic) Hearing loss (Chronic ~1998) Hyperlipidemia (Chronic ~1998) Hypertension (Chronic) Rheumatoid arthritis (Chronic ~1979) Seasonal allergies (Chronic ~2012) Urinary incontinence (Chronic) Vision abnormalities (Chronic) Body mass index (BMI) of 25.0 to 29.9 (Resolved 04/23/14) Chickenpox (Resolved ~1951) Ischemic stroke (Resolved ~2013) Measles (Resolved ~1951) Mumps (Resolved ~1951) Rubella (Resolved ~1951) Physical Therapy Inpatient Evaluation/Re-Eval M1 PT/OT-IP Prior Functional Status Start: 12/06/17 12:42 Freq: NEEDED Status: Active Protocol: Document 12/06/17 11:50 AB (Rec: 12/06/17 13:07 AB [id number]) Medical Review Prior Functional Status Medical History Reviewed Yes Communication able to make needs known Mobility and Gait pt stated that she is modified independent with all mobilities and ambulation without AD but occasionally uses SPC or 4WW depending on her sciatica per pt Social History Household Members children Living Arrangements House Number of Floors (Floors) One Floor Number of Stairs To Enter/Railing? has no steps to enter but has one step with bilateral wide rails (can only hold on to one rail at a time) to get to the living room (sunken living room) Home Environment Standard Height Toilet Walk in Shower Home Equipment Four Wheel Walker Straight Cane Hand Held Shower Grab Bars In Shower Employment Status Retired Additional Social History Comment stated that she has problems with her balance and family is hoping that she can do outpt PT even before admission to the hospital M2 PT-IP Current Condition Start: 12/06/17 12:42 Freq: NEEDED Status: Active Protocol: Document 12/06/17 11:50 AB (Rec: 12/06/17 13:07 [id number]) Physical Therapy Current Condition Current Condition Evaluation Date 12/06/17 Treatment Diagnosis slurred speech Onset Date 12/05/17 Precautions Other Precautions falls M3 PT-IP Subjective Start: 12/06/17 12:42 Freq: NEEDED Status: Active Protocol: Document 12/06/17 11:50 AB (Rec: 12/06/17 13:07 [id number]) Subjective Physical Therapy Visit Type Type Initial Evaluation Visit Start Time 11:50 Visit Stop Time 12:30 Total Visit Minutes 40 Number of SCALLOP RAKER Visits 0 Physical Therapy Visit Comments Patient Comments pt agreeable to do therapy Therapy Pain Assessment Pain When Pain Assessed During Mobility Pain Present Pain Present Pain Reported Location Lower Back Scale Used pain scale not stated M4 PT-IP Mobility and Gait Start: 12/06/17 12:42 Freq: NEEDED Status: Active Protocol: Document 12/06/17 11:50 AB (Rec: 12/06/17 13:07 [id number]) PT-Bed Mobility Assessment Supine to Sit Supine to Sit Standby Assistance Sit to Supine Sit to Supine Standby Assistance Scooting Scooting to Edge of Bed Standby Assistance Scooting Up and Down in Bed Standby Assistance PT-Transfer Assessment Sit to and From Stand Sit to and from Stand Standby Assistance Equipment Transfer Assistive Device Gait Belt Orthotic/Prosthetic Devices or Brace: No Transfers Transfer Destination Bed Transfer Technique Stand Step Pivot Transfer Ability Level of Assist Standby Assistance Comments Mobility Comments pt is impulsive and requires cues to slow down for safety Gait Assessment Gait Gait Assistance Required: Standby Assistance Distance (Feet) (feet) 100 Able to Maintain Weight Bearing Status Yes During Gait Assistive Devices Assistive Device Gait Belt Orthotic/Prosthetic Devices or Brace: No Gait Deviations General Gait Pattern Decreased Stride Length Decreased Feet Clearance Factors Limiting Gait Function Factors Limiting Gait Function Decreased Activity Tolerance Decreased Strength Pain Poor Balance Poor Safety Awareness Comments Gait Comments pt ambulated without AD SBA ~ 100ft and presents with a shuffling gait. Stair Climbing Assessment Evaluation Level of Assist On Stairs Standby Assistance Technique/Endurance Stair Climbing Direction Ascend and Descend Stair Climbing Technique Step Over Step Number of Steps Climbed 3 Query Text: Comments Stair Climbing Comments pt used R rail to ascend and L rail to descend. PT-Balance Assessment Sitting Balance and Reactions Static Sitting Balance Ability Good Dynamic Sitting Balance Ability Good Standing Balance and Reactions Static Standing Balance Ability Good Dynamic Standing Balance Ability Fair Device Used none Balance Tests Single Limb Standing able to stand on one leg for ~ 5 sec but unsteady Comments Other Balance Tests/Deviations/Treatment tinetti balance assessment: : balance score 10/16 gait score : 09/18 total score: 16/28 which relates to a high fall risk (< or equal to 18 being a high fall risk) M5 PT-IP Objective Assessments Start: 12/06/17 12:42 Freq: NEEDED Status: Active Protocol: Document 12/06/17 11:50 AB (Rec: 12/06/17 13:07 [id number]) Orientation Orientation/Cognition Level of Alertness Alert Orientation Name Age Birthday Situation Safety Awareness Decreased Safety Awareness Gross Range of Motion Lower Extremity ROM Assessment Within Functional Limits Strength Lower Extremity Strength Assessment Within Functional Limits M6 PT-IP Treatment Start: 12/06/17 12:42 Freq: NEEDED Status: Active Protocol: Document 12/06/17 11:50 AB (Rec: 12/06/17 13:07 [id number]) Physical Therapy Treatment Education Education Provided Safety Other Treatments Other Treatment Performed informed family regarding safety and d/c recommendations : 30/10 supervision for first few days, use of AD for ambulation: pt and family agreed. M7 PT-IP Assessment and Plan Start: 12/06/17 12:42 Freq: NEEDED Status: Active Protocol: Document 12/06/17 11:50 AB (Rec: 12/06/17 13:07 AB [id number]) PT Summary Assessment and Plan Potential Rehabilitation Potential Good Status of Condition at Evaluation Stable Summary Impairments Pain ROM Strength Balance Coordination Sensation Tone Cognition Bed Mobility Transfers Gait Activity Tolerance Assessment Summary pt requiring SBA with mobility but has decrease safety awareness and can be impulsive . pt plans to go home and her daughter to assist pt. Goals Bed Mobility Goal Independent Transfer Goal Independent Gait Goal Independent Gait Distance 200 Other Goals up/down 1 step with 1 rail mod I Frequency of Treatment Frequency Of Treatment Once a Day Treatment Plan Physical Therapy Treatment Plan Bed Mobility Training Transfer Training Gait Training Therapeutic Exercise Balance Retraining Discharge Planning Hot or Cold Pack Neuromuscular Re-ed Coordination Retraining Manual Therapy Other Recommendations and Next Treatment ambulation, balance training Focus Recommendations To Nursing Amount of Assist Needed Standby Assistance Discharge Recommendations PT Discharge Recommendations Home with 30/10 Assist Outpatient PT
--- NOTE | 2017-12-06 11:59 | PC.NURSE ---
Day shift: Back on unit at approx 1200. Daughters in room. No c/o pain or discomfort.
[2017-12-06] MEDS: LORazepam 2 MG/ML SYRINGE 0.5 MG IV (13:47)
--- NOTE | 2017-12-06 14:00 | OT.IP.TRT ---
Occupational Therapy Treatment Note M3 OT- IP Subjective and Pain Start: 12/06/17 16:28 Freq: Status: Active Protocol: Document 12/06/17 16:28 [email or web address] (Rec: 12/06/17 16:31 [email or web address] [id number]) OT- Subjective Occupational Therapy Visit Type Type Administrative Note Visit Start Time 14:00 Notes OT referral received. Per chart review pt has hx of cerebral amyloid angiopathy with 2 previous hemorrhagic strokes in 03/2013 and 06/2013. Pt now presents with slurred speech and found to have new hemorrhagic infarct in R temporal lobe. Per RN, hold OT evaluation this Pm due to elevated BP, and pt may be transferred to [facility] for higher level of care. No Charge.
--- NOTE | 2017-12-06 14:19 | CM.DANOTE ---
Discharge Planning/Care Management DCP: assessment: case received, EMR reviewed and met this morning with pt: 0800. Introduced self and role. Pt is a 72 year old female who admitted last night to care of A physician team. PCP: Dr. Matt. Payer: Medicare and [facility]. Pt was hopeful of a d/c later today to home and physician said that if MRI results were stable and she did well with PT/OT this was probable. MRI results are now back, Dr. Matt is aware and she is working on a transfer to for higher level of care. Pt is aware of same and family are gathered in the room. Will follow prn CM Discharge Assessment Start: 12/06/17 14:15 Freq: Status: Active Protocol: Document 12/06/17 14:15 ITV (Rec: 12/06/17 14:19 ITV [id number]) Discharge Planning Assessment Advance Directives? Yes Advance Directives on File No: requested from Med Records History Provided By Patient Medical Record Prior Living Arrangements House Household Members children Comment lives with lauren Carvajal and Alena's . Comment pt works at [employer] Independent with ADL's Yes: basically. has L field visual cut. Is patient alert and oriented? Yes DME Already Rented / Owned FWW / Walker Cane Comment uses occassionally. is considering a white cane as major issue is the L field visual cut and says she hopes this will help others in the community be aware/when shopping etc. Whiteboard Updated in Patient Room with Yes name and ext. # of Steam Cleaner Review Status In Process Next Review Type Continued Stay Review
--- NOTE | 2017-12-06 15:36 | DI.CT.S_ITS ---
PROCEDURE: CT HEAD/BRAIN WO CON INDICATIONS: evaluate bleed TECHNIQUE: Noncontrast 4.5 mm thick angled axial sections acquired from the foramen magnum to the vertex, with coronal and sagittal reformats. For radiation dose reduction, the following was used: automated exposure control, adjustment of mA and/or kV according to patient size. COMPARISON: [facility], CT, HEAD WITHOUT CONTRAST, 07/14/2013, 12:05. [facility], CT, HEAD WITHOUT CONTRAST, 11/01/2015, 23:53. [facility], CT, CT HEAD/BRAIN WO CON, 12/05/2017, 14:02. [facility], CT, CT HEAD/BRAIN WO CON, 12/05/2017, 17:52. FINDINGS: Image quality: Excellent. CSF spaces: Basal cisterns are patent. No extra-axial fluid collections. The ventricles are symmetric in size and shape. Brain: No intracranial bleeds or masses. The previously seen small focus of calcification within the inferior right frontal lobe is faintly seen on the current study and likely relates to parenchymal calcification. There is cerebral volume loss for age, with resultant ventricular and sulcal prominence. There is a remote infarction seen involving right posterior frontal lobe, parietal lobe, and occipital lobe. There are periventricular and deep white matter chronic small vessel ischemic changes. There is intracranial internal carotid artery atherosclerosis. Skull and face: For also seen involving the frontal calvarium on both sides. Calvarium and visualized facial bones appear intact, without suspicious lesions. Sinuses: Visualized sinuses and mastoids are clear. IMPRESSION: No acute hemorrhage can be seen. Remote right posterior cerebral hemisphere infarction. Dictated by: Tomy Burgos M.D. on 12/06/2017 at 15:24 Approved by: Tomy Burgos M.D. on 12/06/2017 at 15:28
--- NOTE | 2017-12-06 17:29 | PC.NURSE ---
Joseline shift note: Patient awake and alert, returned from CT scan. Neurological assessment WNL, no sensory or motor deficits. No slurred speech, dizziness, or loss of balance. NIH 3 due to peripheral visual loss, which is unchanged from past stroke. Dr. Fisher at bedside. Daughters at bedside providing supportive care. C/O pain to occipital area, described as intermittent ache 07/17. Will make MD aware.
[2017-12-06] MEDS: hydroCHLOROthiazide 25 MG TABLET PO (18:23)
[2017-12-06] MEDS: ACETAMINOPHEN 325 MG TABLET 650 MG PO (18:23)
[2017-12-06] MEDS: OXYBUTYNIN 5 MG TABLET PO (20:05)
[2017-12-06] MEDS: LOSARTAN 50 MG TABLET PO (20:05)
[2017-12-07 03:10] VITALS: BP 152/69; PULSE 72; RESP 16; TEMP 36.7; O2SAT 96
[2017-12-07 07:59] LABS: BUN Creatinine Ratio 12.5 (6-22); Blood Urea Nitrogen 10 mg/dL (7-17); Calcium 9.4 mg/dL (8.4-10.2); Carbon Dioxide 30 mmol/L (22-32); Chloride 103 mmol/L (98-107); Estimated Glomerular Filt Rate > 60.0 mL/min (>60); Glucose 103 mg/dL (80-110); HEMOLYSIS < 15 (0-50); Sodium 142 mmol/L (137-145)
[2017-12-07 08:38] VITALS: BP 152/70; PULSE 82; RESP 16; TEMP 36.7; O2SAT 95
--- NOTE | 2017-12-07 08:40 | P.DS_ITS ---
History of Present Illness Chief complaint: DIARRHEA/SLURRED SPEECH Narrative: Patient is a 72 yo female well known to me with cerebral amyloid angiopathy, history of ischemic stroke (06/2013) after hemorrhagic stroke (2012), rheumatoid arthritis, HTN, CKD, whose daughter brought her to the ED after noticing that she was slurring her speech. Patient felt she was normal on 12/04/2017 in the evening but was experiencing horrible, heartburn. She had worked a normal afternoon at [employer], came home and had an egg sandwich. Went to bed and was listening to her audio tapes when she started having diarrhea. She have several episodes overnight which has spontaneously resolved. She also does report a headache but it's not unlike headaches that she gets on occassion. Mainly occipital on the right. She says that on the evening of 12/02 she ate roast beef sandwich and she also talked to her daughter who lives in [facility] who also ate a roast beef sandwich and had abdominal complaints afterwards. Both of them had but the roast beef at [facility] however different stores. She was seen at [facility] eye clinic just last week and her visual field loss is stable with left sided loss. She was started on some new eye drops. Find herself running to things on the left. Her balance can be off at times and we were going to start physical therapy as outpatient after her last visit. Discharge Providers Date of admission: 12/06/17 14:17 Primary care physician: Ailin Matt DO Consults: 12/05/17 19:11 Consult to Physician Routine Comment: Consulting Provider: Hudson Perdue Reason for consultation: admission Has provider been notified: Yes 12/06/17 08:59 Consult to Discharge Planning Routine Comment: Consult to Occupational Therapy Evaluate & Treat Comment: Physician Instructions: Evaluate and treat Consult to Physical Therapy Evaluate & Treat Comment: Physician Instructions: Evaluate and Treat Consult to Speech Therapy Evaluate & Treat Comment: Physician Instructions: Evaluate and treat Discharge provider: Ailin Matt DO Summary Discharge Diagnosis: Subacute ischemic stroke Cerebral amyloid angiopathy Hypertension Aphasia Hypokalemia Rheumatoid arthritis Impaired balance Hospital Course: [address] [address] History & Physical Report Patient: Bridget Rodas MR#: [id number] : 1945 Acct:[id number] Age/Sex: 72 / F ADM Date: 12/05/17 Loc: 203-[address]: Hudson Perdue MD History of Present Illness Date Patient Seen: 12/06/17 Time Patient Seen: 08:34 Chief complaint: DIARRHEA/SLURRED SPEECH Narrative: Patient is a 72 yo female well known to me with cerebral amyloid angiopathy, history of ischemic stroke (06/2013) after hemorrhagic stroke (2012), rheumatoid arthritis, HTN, CKD, whose daughter brought her to the ED after noticing that she was slurring her speech. Patient felt she was normal on 12/04/2017 in the evening but was experiencing horrible, heartburn. She had worked a normal afternoon at [employer], came home and had an egg sandwich. Went to bed and was listening to her audio tapes when she started having diarrhea. She have several episodes overnight which has spontaneously resolved. She also does report a headache but it's not unlike headaches that she gets on occassion. Mainly occipital on the right. She says that on the evening of 12/02 she ate roast beef sandwich and she also talked to her daughter who lives in [facility] who also ate a roast beef sandwich and had abdominal complaints afterwards. Both of them had but the roast beef at [employer] however different stores. She was seen at [facility] eye clinic just last week and her visual field loss is stable with left sided loss. She was started on some new eye drops. Find herself running to things on the left. Her balance can be off at times and we were going to start physical therapy as outpatient after her last visit. Patient History Medical History Campylobacter diarrhea (Resolved) Essential hypertension (Chronic 04/04/11) Rheumatoid arthritis (Chronic) Intracranial hemorrhage (Acute 03/20/13) Cerebral amyloid angiopathy (Chronic 04/25/13) Sensorineural hearing loss (SNHL) of left ear (Chronic) Anxiety (Chronic 07/24/13) Sleep apnea (Chronic 07/28/13) Mixed stress and urge urinary incontinence (Chronic 01/12/14) 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) Chronic kidney disease (CKD) stage G3a/A2, moderately decreased glomerular filtration rate (GFR) between 45-59 mL/min/1.73 square meter and albuminuria creatinine ratio between 30-299 mg/g (Chronic 11/18/14) Asthma due to seasonal allergies (Chronic 06/04/15) Eczema (Chronic 03/08/16) Chronic disease anemia (Chronic 07/04/17) Anxiety (Chronic ~1999) Cataract (Chronic ~1998) Eczema (Chronic) Fecal incontinence (Chronic) Hearing loss (Chronic ~1998) Hyperlipidemia (Chronic ~1998) Hypertension (Chronic) Rheumatoid arthritis (Chronic ~1979) Seasonal allergies (Chronic ~2012) Urinary incontinence (Chronic) Vision abnormalities (Chronic) Body mass index (BMI) of 25.0 to 29.9 (Resolved 04/23/14) Chickenpox (Resolved ~1951) Ischemic stroke (Resolved ~2013) Measles (Resolved ~1951) Mumps (Resolved ~1951) Rubella (Resolved ~1951) Surgical History History of ectopic (Resolved ~1971) History of cataract removal with insertion of prosthetic lens (~2015) History of third molar tooth extraction (~1994) History of tonsillectomy (~1951) S/P total abdominal hysterectomy and bilateral salpingo-oophorectomy (~1973) Status post appendectomy (~1973) Status post bunionectomy (~2004) Status post cholecystectomy (~1994) Family & Social History Social History: household members children Prior Living Arrangements House Safety & Behavioral: Feels Safe in Current Yes Environment Been Physically Hurt or No Threatened By a Person Suicidal Ideation Description None Suicide Plan Description No Plan Tobacco & Substance use: Smoking Status Former smoker alcohol intake frequency holiday/special occasion Substance Use Type marijuana Meds Home Medications Medication Instructions Recorded Confirmed Type Spacer: Inhaler Spacer Device ea #1 02/08/17 10/03/17 Rx [biotin] #0 02/08/17 10/03/17 History gabapentin [Neurontin] 300 mg PO SEE INSTRUCTIONS #180 cap 04/04/17 12/05/17 Rx losartan 50 mg PO BID #90 tab 04/04/17 12/05/17 Rx triamcinolone acetonide 0 gm TOPICAL BID #1 tube 05/02/17 12/05/17 Rx amlodipine [Norvasc] 5 mg PO QDAY #90 tab 05/21/17 12/05/17 Rx oxybutynin chloride 5 mg PO BID #60 tab 08/09/17 12/05/17 Rx escitalopram oxalate [Lexapro] 10 mg PO Q DAY #90 tab 10/02/17 12/05/17 Rx spironolacton-hydrochlorothiaz 1 tab PO QDAY #90 tab 10/02/17 12/05/17 Rx [Aldactazide] prednisone 1 mg tablet 3 mg PO DAILY tab 10/03/17 12/05/17 History atorvastatin 40 mg PO HS #90 tab 10/04/17 12/05/17 Rx omeprazole 20 mg PO QDAY #90 cap 10/16/17 12/05/17 Rx potassium chloride [Klor-Con M20] 40 meq PO BID #360 ter 10/29/17 12/05/17 Rx magnesium chloride 128 mg PO BID #120 tab 11/27/17 12/05/17 Rx diphenhydramine HCl [Benadryl] 50 mg PO BEDTIME PRN 12/05/17 12/05/17 History Allergies Allergy/AdvReac Type Severity Reaction Status Date / Time Penicillins [PENICILLINS] Allergy Mild ITCH/EARS Verified 10/03/17 16:25 FEEL FULL Sulfa (Sulfonamide Allergy Mild ITCH/EAR Verified 10/03/17 16:25 Antibiotics) FEEL FULL cephalexin [CEPHALEXIN] Allergy Unknown unknown Verified 10/03/17 16:25 coconut oil [COCONUT OIL] Allergy Unknown rash, Verified 10/03/17 16:25 itching Review of Systems Constitutional Constitutional: Denies body ache(s), Denies chills, Denies fever(s) and Reports headache(s) Eyes Eyes: Reports blind spots and Denies change in vision ENT Ears, Nose, Mouth, and Throat: Yes abnormal hearing, No difficulty swallowing, Yes headache(s), No hoarseness, No nasal congestion and No nasal discharge Cardiovascular Cardiovascular: Denies chest pain, Denies fainting, Denies fast heart rate, Denies foot swelling, Denies irregular heart rhythm, Denies shortness of breath , Denies shortness of breath with activity and Denies shortness of breath when lying down Respiratory Respiratory: Denies cough, Denies dyspnea and Denies dyspnea on exertion Gastrointestinal Gastrointestinal: Denies dysphagia, Reports heartburn and Denies vomiting Musculoskeletal Musculoskeletal: Reports abnormal gait Neurologic Neurologic: Reports abnormal hearing, Reports abnormal speech, Reports abnormal gait, Denies behavioral changes, Reports confusion, Denies syncope and Reports headache(s) Psychiatric Psychiatric: Denies behavioral changes, Reports confusion and Denies depression Exam Vital Signs (past 8 hours): - 12/06/17 01:50 12/06/17 05:05 Temperature 98.3 F 98.3 F Pulse Rate 76 80 Respiratory Rate 17 12 Blood Pressure 142/62 H 157/76 H Pulse Oximetry 96 95 Oxygen Delivery Method Room Air Narrative Exam Narrative: General: Well-developed, well-nourished, female, no acute distress, sitting up in bed, conversant. Heart: Regular rate and rhythm, 2 to 3/6 systolic murmur best heard at left lower sternal border Lungs: Clear to auscultation bilaterally, no wheezes, rales or rhonchi Abd: BS+, soft, nontender, nondistended, no rebound, no guarding Extremities: Warm and well perfused, no edema, muscle strength 5/5 Objective Labs Result Diagrams: 12/05/17 13:24 document embedded image 12/05/17 13:24 document embedded image Labs: Laboratory Results - last 24 hr 12/05/17 12/05/17 12/05/17 13:24 13:24 13:24 WBC 9.6 RBC 3.84 L Hgb 12.6 Hct 37.2 MCV 96.9 MCH 32.7 MCHC 33.7 RDW 13.5 Plt Count 320 Neut % (Auto) 73.1 Lymph % (Auto) 15.1 L [place] % (Auto) 9.5 Eos % (Auto) 1.7 L Baso % (Auto) 0.6 Neut # (Auto) 7000 H PT 11.9 INR 1.1 APTT 30 Sodium 142 Potassium 3.5 Chloride 103 Carbon Dioxide 28 BUN 16 Creatinine 0.90 Estimated GFR > 60.0 BUN/Creatinine Ratio 17.8 Glucose 106 Calcium 10.0 Total Bilirubin 0.6 AST 24 ALT 26 Alkaline Phosphatase 52 Troponin I < 0.012 Total Protein 7.4 Albumin 4.4 Globulin 3.0 Albumin/Globulin Ratio 1.5 72-year-old female with history of both hemorrhagic (03/2013) and ischemic stroke (06/2013) with new onset of slurring of speech yesterday after an attack of gastroenteritis. Hypertension. History of cerebral amyloid angiopathy. Subacute right temporal ischemic stroke found on MRI. No obvious neurologic sequelae at this point. Her aphasia resolved. Has surrounding hematoma which is stable on repeat CT scan. Discussed with [facility] which recommends blood pressure control to 130/80, no statins or SSRI's, NO anticoagulants. Hypertension. Significantly elevated readings on presentation. let her blood pressures run on the higher side while awaiting MRI results. Restarted her home medications with reduction to the 150/80 range. Will change her losartan to irbesartan. Increase amlodipine to 10 mg if necessary early next week. We had an extensive discussion with daughters on appropriate diet. Mild Hypokalemia. Did not give her home dose of potassium during admission but will restart at discharge. Impaired balance: will do physical therapy as outpatient. Rheumatoid arthritis. home medications were continued. Depression with anxiety. Will stop her escitalopram. Will research her chart notes since I think we did get the go ahead from neurology before starting this medication. Consider a non-SSRI medication. Code status: Full code DVT prophylaxis: Patient is currently ambulatory and anticoagulants are contraindicated. Status at Discharge Cognitive/behavioral status at discharge: Cognitively intact Functional status at discharge: independent ambulation Overall status at discharge: patient is back to baseline Time Spent with Patient Greater than 30 minutes Exam Vital Signs (past 8 hours): - 12/07/17 03:10 Temperature 98.1 F Pulse Rate 72 Respiratory Rate 16 Blood Pressure 152/69 H Pulse Oximetry 96 Oxygen Delivery Method Room Air Oxygen Flow Rate 0 Objective Labs Result Diagrams: 12/05/17 13:24 12/07/17 06:50 Labs: Laboratory Results - last 24 hr 12/07/17 06:50 Sodium 142 Potassium 3.0 L Chloride 103 Carbon Dioxide 30 BUN 10 Creatinine 0.80 Estimated GFR > 60.0 BUN/Creatinine Ratio 12.5 Glucose 103 Calcium 9.4 Discharge Plan Discharge Plan Patient Disposition: Home Provider Discharge Instructions Diet: Diet as Tolerated and Low-sodium Diet comment: nonstarchy vegetables, fruits, whole grains and lean meats Activity: as tolerated Other treatments: Physical therapy for balance Skin/Wound/Dressing Care Report to your healthcare provider any signs of infection, such as:: chills, fever, night sweats and increased pain Discharge Data Primary Care Provider: Ailin Matt Attending Provider: Ailin Matt Admit Date/Time: 12/06/17 14:17 Quality VTE Deep Vein Thrombosis/Pulmonary Embolism Present on Admission: No
--- NOTE | 2017-12-07 09:06 | OT.IP.EVAL ---
Past Medical History (Last Reviewed 12/06/17 @ 08:43 by Ailin Matt DO) Campylobacter diarrhea (Resolved) Essential hypertension (Chronic 04/04/11) Rheumatoid arthritis (Chronic) Intracranial hemorrhage (Acute 03/20/13) Cerebral amyloid angiopathy (Chronic 04/25/13) Sensorineural hearing loss (SNHL) of left ear (Chronic) Anxiety (Chronic 07/24/13) Sleep apnea (Chronic 07/28/13) Mixed stress and urge urinary incontinence (Chronic 01/12/14) 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) Chronic kidney disease (CKD) stage G3a/A2, moderately decreased glomerular filtration rate (GFR) between 45-59 mL/min/1.73 square meter and albuminuria creatinine ratio between 30-299 mg/g (Chronic 11/18/14) Asthma due to seasonal allergies (Chronic 06/04/15) Eczema (Chronic 03/08/16) Chronic disease anemia (Chronic 07/04/17) Anxiety (Chronic ~1999) Cataract (Chronic ~1998) Eczema (Chronic) Fecal incontinence (Chronic) Hearing loss (Chronic ~1998) Hyperlipidemia (Chronic ~1998) Hypertension (Chronic) Rheumatoid arthritis (Chronic ~1979) Seasonal allergies (Chronic ~2012) Urinary incontinence (Chronic) Vision abnormalities (Chronic) Body mass index (BMI) of 25.0 to 29.9 (Resolved 04/23/14) Chickenpox (Resolved ~1951) Ischemic stroke (Resolved ~2013) Measles (Resolved ~1951) Mumps (Resolved ~1951) Rubella (Resolved ~1951) Surgical History (Last Updated 10/02/17 @ 15:51 by Vanesa Barton) History of ectopic (Resolved ~1971) History of cataract removal with insertion of prosthetic lens (~2015) History of third molar tooth extraction (~1994) History of tonsillectomy (~1951) S/P total abdominal hysterectomy and bilateral salpingo-oophorectomy (~1973) Status post appendectomy (~1973) Status post bunionectomy (~2004) Status post cholecystectomy (~1994) Occupational Therapy Inpatient Evaluation/Re-Eval M1 PT/OT-IP Prior Functional Status Start: 12/06/17 12:42 Freq: NEEDED Status: Active Protocol: Document 12/07/17 09:06 ANGELITO (Rec: 12/07/17 12:11 [facility] [id number]) Medical Review Prior Functional Status Medical History Reviewed Yes Communication able to make needs known with occasional wording problems per daughter Mobility and Gait pt stated that she is modified independent with all mobilities and ambulation without AD but occasionally uses SPC or 4WW depending on her sciatica per pt; pt admits to occasional falls Activities of Daily Living and IADL's Pt indep with all self care including showering. Daughter assists with meds, finances, transport, cooking and siebel solution architect. Pt does do some simple meal preparation when daughter away. Prior Functional Level (Other details) Daughter lives with pt but works patient support partner. Daughter's partner or other family with pt when daughter away. 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 Social History Household Members children Living Arrangements House Number of Floors (Floors) One Floor Number of Stairs To Enter/Railing? no stairs to enter, 1 stair with rail to sunken living room Home Environment Standard Height Toilet Walk in Shower Home Equipment Front Wheel Walker Four Wheel Walker Straight Cane Grab Bars In Shower Employment Status Retired Additional Social History Comment pt stands to shower, does not have shower seat M2 OT-IP Current Condition Start: 12/06/17 16:28 Freq: Status: Active Protocol: Document 12/07/17 09:06 MU (Rec: 12/07/17 12:11 [facility] [id number]) Occupational Therapy Current Condition Current Condition Evaluation Date 12/07/17 Treatment Diagnosis assess for ability to return home Diagnosis Onset Date 12/06/17 Post Operative Precautions Other Precautions falls M3 OT- IP Subjective and Pain Start: 12/06/17 16:28 Freq: Status: Active Protocol: Document 12/07/17 09:06 MU (Rec: 12/07/17 12:11 [facility] [id number]) OT- Subjective Occupational Therapy Visit Type Type Initial Evaluation Visit Start Time 08:40 Visit Stop Time 09:06 Total Visit Minutes 26 Notes Pt's second daughter here this session, not the one she lives with. Occupational Therapy Visit Comments Patient Comments I can't wait to get home and take a shower in my own bathroom. Patient/Caregiver Goals to go home today OT Pain Assessment Pain When Pain Assessed After Treatment Pain Present Pain Present Denied Pain M4 OT- IP ADL's Start: 12/06/17 16:28 Freq: Status: Active Protocol: Document 12/07/17 09:06 PJM (Rec: 12/07/17 12:11 [facility] [id number]) OT [id number] General Evaluation Self-Feeding Ability Independent OT ADL-Grooming General Evaluation Grooming Ability Standby Assistance Areas Needing Assistance Combing/Brushing Hair Face Washing Comments OT Grooming Comments Pt impulsive with fair thoroughness with grooming tasks. Significant inattention to detail noted. OT ADL-Oral Care General Eval Oral Care Ability Standby Assistance Areas of Assistance Brushing Teeth Devices Oral Care Devices Toothbrush OT ADL-Dressing General Eval Upper Body Dressing Ability Minimal Assistance Lower Body Dressing Ability Standby Assistance Comments OT Dressing Comments Pt has significant difficulty orienting clothing, putting bra on inside out and shirt on backwards until mod verbal cues provided. Daughter states this is not a new symptom for pt. Daughter assists pt with dressing at home. OT ADL-Toileting General Evaluation Toileting Ability Independent OT ADL-Bathing Comments OT Bathing Comments Pt declines to shower here. Recommend pt obtain shower seat with back due to decreased balance. M5 OT- IP IADL's Start: 12/06/17 16:28 Freq: Status: Active Protocol: Document 12/07/17 09:06 PJM (Rec: 12/07/17 12:11 [facility] [id number]) OT-Instrumental Activities of Daily Living Deficits IADL Deficits Identified Deficits Home Safety Awareness Awareness of Need for Assistance at Home Decreased Awareness Medication Management Medication Management Caregiver Administers Money Management Money Management Caregiver Provides Assistance Meal Preparation Meal Preparation Caregiver Provides Assist Meal Preparation Comments Pt impulsive with significantly decreased L homonymous hemianopsia with some L visual spatial neglect. Recommend supervision for all hot meal prep at home. Informatics Application Analyst Informatics Application Analyst Caregiver Provides Assist Driving Driving Caregiver Provides Assist M6 OT- IP Functional Cognition Start: 12/06/17 16:28 Freq: Status: Active Protocol: Document 12/07/17 09:06 PJ (Rec: 12/07/17 12:11 [facility] [id number]) Cognitive Factors Limiting Selfcare Function Cognitive Ability Level of Alertness Alert Patient Orientation Name Attention Span Ability Capable of Focused Attention Capable of Sustained Attention Ability to Follow Commands Able to Follow One Step Commands Safety Awareness Decreased Recall of Precautions Underestimates Need for Assistance Problem Solving Ability Needs Assist to Identify Solutions Cognitive Comments Cognitive Assessment Comments Pt quite impulsive which daughter reports is not a new symptom. OT- Vision and Hearing OT- Hearing Assessment OT- Hearing Assessment WFL OT- Vision Assessment Visual Nix Impaired Visual Spacial Neglect Left Vision Assessment Comments L homonymous hemianopsia present since previous strokes . Pt denies any new vision changes since admit. M7 OT- IP Mobility and Balance Start: 12/06/17 16:28 Freq: Status: Active Protocol: Document 12/07/17 09:06 PJ (Rec: 12/07/17 12:11 [facility] [id number]) OT-Transfer Assessment Sit to and From Stand Sit to and from Stand Standby Assistance Transfers Transfer Ability Standby Assistance Technique Transfer Destination Chair Transfer Technique Stand Step Pivot Devices Transfer Assistive Devices None OT- Gait Assessment Gait Gait Assistance Required: Standby Assistance Distance (Feet) (feet) 15 Assistive Devices Assistive Device None Comments Gait Ability Comments Pt recommended cane or FWW for safety due to decreased balance and shuffling gait. OT- Balance Assessment Sitting Balance and Reactions Static Sitting Balance Ability Good Dynamic Sitting Balance Ability Good Standing Balance and Reactions Static Standing Balance Ability Good Dynamic Standing Balance Ability Fair Comments Other Balance Tests/Deviations/Treatment Per P.T. balance assessment, : pt at high fall risk. M8 OT- IP Objective Assessments Start: 12/06/17 16:28 Freq: Status: Active Protocol: Document 12/07/17 09:06 PJ (Rec: 12/07/17 12:11 [facility] [id number]) OT Gross Range of Motion Upper Extremity Range of Motion Assessment Within Functional Limits OT Strength Upper Extremity Strength Assessment Within Functional Limits OT- Coordination Assessment Comments Coordination Comments BUE WFL OT Sensation Assessment Comments Summary Comments BUE WNL, pt denies any deficits Edema Edema Absent M9 OT- IP Assessment and Plan Start: 12/06/17 16:28 Freq: Status: Active Protocol: Document 12/07/17 09:06 PJ (Rec: 12/07/17 12:11 [facility] [id number]) OT Summary Assessment and Plan Potential Analytic Complexity at Evaluation Low Summary Assessment Summary Low complexity OT assessment completed. Pt appears to be at baseline level of function and her daughter agrees with this assessment. Pt has residual L homonymous hemianopsia with L visual spatial neglect, impulsivity, significant perceptual deficits and decreased safety awareness/insight from previous stroke as noted above. Pt has no focal deficits in BUE sensorimotor function. Recommend 24/7 assist when pt returns home for safety, especially with meal prep tasks and showering. Per P.T. assessment pt is high risk for fall. No further OT services indicated at this time. Frequency of Treatment Frequency Of Treatment Discharge Discharge Recommendations OT Discharge Recommendations Home with 24/7 Assist Home Equipment Needs shower seat with back
[2017-12-07] MEDS: SODIUM CHLORIDE 0.9% FLUSH 10 ML IV (09:09)
[2017-12-07] MEDS: OXYBUTYNIN 5 MG TABLET PO (09:10)
[2017-12-07] MEDS: hydroCHLOROthiazide 25 MG TABLET PO (09:10)
[2017-12-07] MEDS: SPIRONOLACTONE 25 MG TABLET PO (09:10)
[2017-12-07] MEDS: AMLODIPINE 5 MG TABLET PO (09:10)
[2017-12-07] MEDS: LOSARTAN 50 MG TABLET PO (09:10)
[2017-12-07] MEDS: predniSONE 1 MG TABLET 3 MG PO (09:10)
--- NOTE | 2017-12-07 10:26 | PC.NURSE ---
Day shift: Pt left unit w/ her daughter and PHOTO FINISHER at approx 1030. She ambulated on her own. All paperwork signed and questions answered. She has all personal belongings. She will make MD appointment when she gets home.
[2017-12-13 10:57] LABS: Add Manual Diff / Slide Review NO; Basophils Percent Auto 0.8 % (0-2); Eosinophils Percent Auto 1.7 % (2-4); Hematocrit 35.7 % (36-46); Lymphocytes Percent Auto 14.3 % (25-40); Mean Corpuscular HGB Conc 33.8 % (30-36); Mean Corpuscular Hemoglobin 32.9 PG (26-34); Mean Corpuscular Volume 97.6 fL (80-100); Monocytes Percent Auto 10.4 % (3-14); Neutrophils Absolute Auto 6500 /uL (3000-5900); Neutrophils Percent Auto 72.8 % (50-75); Platelet Count 295 X10^3/uL (150-400); Red Blood Cell Count 3.65 X10^6/uL (4.0-5.2); Red Cell Distribution Width 13.5 % (11.6-14.8)
[2017-12-13 10:58] LABS: Alanine Aminotransferase 22 IU/L (9-52); Albumin 4.1 g/dL (3.5-5.0); Albumin Globulin Ratio 1.4 (1.0-2.8); Alkaline Phosphatase 48 U/L (38-126); Aspartate Aminotransferase 28 IU/L (14-36); Bilirubin Total 0.5 mg/dL (0.2-1.3); Blood Urea Nitrogen 20 mg/dL (7-17); Calcium 9.5 mg/dL (8.4-10.2); Carbon Dioxide 26 mmol/L (22-32); Chloride 106 mmol/L (98-107); Estimated Glomerular Filt Rate > 60.0 mL/min (>60); Globulin 2.9 g/dL (1.7-4.1); Glucose 112 mg/dL (80-110); HEMOLYSIS 31 (0-50); Sodium 142 mmol/L (137-145)
[2017-12-13 11:07] LABS: INR 1.1 (0.9-1.3); Prothrombin Time 11.6 SECONDS (10.1-12.7)
[2017-12-13 11:09] LABS: PTT Partial Thromboplastin Tim 25 SECONDS (26.4-36.2)
== END 2017-12-07 10:29 | disposition home or self-care (01) | DRG 65 ==
LOC: ED 13:17 → AC 19:07
PROVIDERS: Admitting Provider Family Medicine; Emergency Provider Emergency Medicine; Family Provider Family Medicine; PCP Family Medicine; Visit Provider Family Medicine
DX: I63.9 Cerebral infarction, unspecified (principal); E85.4 Organ-limited amyloidosis; R47.81 Slurred speech; I68.0 Cerebral amyloid angiopathy; I12.9 Hypertensive chronic kidney disease with stage 1 through stage 4 chronic kidney disease, or unspecified chronic kidney disease; N18.3 Chronic kidney disease, stage 3 (moderate); K52.9 Noninfective gastroenteritis and colitis, unspecified; M06.9 Rheumatoid arthritis, unspecified; E87.6 Hypokalemia; Z86.73 Personal history of transient ischemic attack (TIA), and cerebral infarction without residual deficits; Z87.891 Personal history of nicotine dependence; F41.9 Anxiety disorder, unspecified; R26.89 Other abnormalities of gait and mobility
CPT/HCPCS: 36415; 36591; 70450; 70553; 80048; 80053; 81003; 84484; 85025; 85610; 85730; 92523; 93005; 93010; 93306; 96360; 96361; 97161; 97165; 97530; 99233; 99239; 99285; 99291; G0378; J2060

== ENCOUNTER 2017-12-13 09:56 | Emergency (ER) | payer MEDICARE, OTHER, SELFPAY ==
[2017-12-05 19:11] VITALS: BMI 22.4
--- NOTE | 2017-12-13 10:05 | DI.CT.S_ITS ---
PROCEDURE: CT HEAD/BRAIN WO CON INDICATIONS: stroke symptoms change in metal status TECHNIQUE: Noncontrast 4.5 mm thick angled axial sections acquired from the foramen magnum to the vertex, with coronal and sagittal reformats. For radiation dose reduction, the following was used: automated exposure control, adjustment of mA and/or kV according to patient size. COMPARISON: [facility], CT, CT HEAD/BRAIN WO CON, 12/06/2017, 15:59. FINDINGS: Image quality: Excellent. CSF spaces: Basal cisterns are patent. No extra-axial fluid collections. Ventricles are normal in size and shape on the left but mildly compressed on the right by the hemorrhage discussed below. Brain: No midline shift. No intracranial masses but there is hemorrhage within the right temporal region in an area measuring up to 5.8 cm AP, 3.8 cm transverse and 3.6 cm craniocaudad.. Mendoza-white matter interface is abnormal in the area immediately adjacent to the hemorrhage and also more posteriorly within the posterior temporal and occipital regions on the right where prior encephalomalacia from chronic infarctions appears present. There also is relatively prominent microvascular atherosclerotic change in the deep white matter each hemisphere has a pre-existing condition. There is no Skull and face: Calvarium and visualized facial bones are intact, without suspicious lesions. Sinuses: Visualized sinuses and mastoids are clear. IMPRESSION: There is an acute/subacute hemorrhage within the right temporal lobe, with adjacent mass effect there is moderate, adjacent to an area of prior old stroke with encephalomalacia more posteriorly. Superimposed moderately severe microvascular atherosclerotic change is again seen within the deep white matter each hemisphere. This information was immediately conveyed to the emergency room physician caring for the patient at 10:05. The images were placed on lying into the PACS system 1 minute earlier. Dictated by: Terry Costello M.D. on 12/13/2017 at 10:05 Approved by: Terry Costello M.D. on 12/13/2017 at 10:23
[2017-12-13 10:06] VITALS: BP 183/78; PULSE 72; RESP 15; TEMP 36.6; O2SAT 95; BMI 23.4
--- NOTE | 2017-12-13 10:10 | ED.NEUROSD ---
HPI - Neuro Symptoms/Deficit General Chief Complaint: Neuro Symptoms/Deficit Stated Complaint: Stroke Time Seen by Provider: 12/13/17 09:57 Source: EMS Mode of arrival: EMS Limitations: no limitations History of Present Illness HPI Narrative: Patient is a 72-year-old female who presents with sudden-onset headache and difficulty speaking which started around 9:00 a.m. this morning. She does have a history of cerebral amyloid angiopathy, history of ischemic stroke (06/2013) after hemorrhagic stroke (03/2013), she has no focal weakness her speech seems to be improving. She actually had a questionable bleed last week she had 2 head CTs in the ED not thought to be acute. She had an MRI the following day which did show possible all hemorrhagic infarct. She was admitted December 06 2017 here at [facility] for similar symptoms she was given aspirin 324 mg x1. She had MRI echocardiogram and TIA workup she was discharged the following day. Related Data Home Medications Medication Instructions Recorded Confirmed biotin 1 dose PO DIRECTED #0 02/08/17 12/13/17 prednisone 1 mg tablet 3 mg PO DAILY tab 10/03/17 12/13/17 diphenhydramine HCl [Benadryl] 50 mg PO BEDTIME PRN 12/05/17 12/13/17 gabapentin 300 mg PO BID 12/13/17 12/13/17 leflunomide 20 mg PO DAILY 12/13/17 12/13/17 magnesium chloride [Mag 64] 2 tab PO BID 12/13/17 12/13/17 spironolacton-hydrochlorothiaz 1 tab PO DAILY 12/13/17 12/13/17 [Aldactazide] Previous Rx's Medication Instructions Recorded triamcinolone acetonide 0 gm TOPICAL BID #1 tube 05/02/17 oxybutynin chloride 5 mg PO BID #60 tab 08/09/17 omeprazole 20 mg PO QDAY #90 cap 10/16/17 potassium chloride [Klor-Con M20] 40 meq PO BID #360 ter 10/29/17 irbesartan 150 mg PO DAILY #30 tab 12/07/17 amlodipine 5 mg tablet 5 mg PO QDAY #90 tab 12/11/17 Allergies Allergy/AdvReac Type Severity Reaction Status Date / Time Penicillins [PENICILLINS] Allergy Mild ITCH/EARS Verified 12/13/17 10:10 FEEL FULL Sulfa (Sulfonamide Allergy Mild ITCH/EAR Verified 12/13/17 10:10 Antibiotics) FEEL FULL cephalexin [CEPHALEXIN] Allergy Unknown unknown Verified 12/13/17 10:10 coconut oil [COCONUT OIL] Allergy Unknown rash, Verified 12/13/17 10:10 itching Review of Systems Review of Systems All systems reviewed & are unremarkable except as noted in HPI and below Constitutional Denies chills, Denies fever(s), Reports headache(s), Denies lethargy and Denies weakness Eyes Denies change in vision, Denies eye discharge, Denies irritation and Denies loss of vision ENT Ears, Nose, Mouth, and Throat: Denies change in voice, Reports headache(s), Denies neck pain and Denies sore throat Cardiovascular Denies chest pain, Denies irregular heart rhythm, Denies lightheadedness, Denies palpitations and Denies orthopnea Gastrointestinal Gastrointestinal: Denies abdominal pain, Denies change in bowel habits, Denies diarrhea, Denies nausea and Denies vomiting Musculoskeletal Denies neck pain Integumentary/Breasts Denies pruritus, Denies erythema, Denies rash and Denies wounds Neurologic Reports as per HPI, Reports headache(s), Denies loss of vision and Denies weakness Endocrine Denies palpitations [facility] Medical History Campylobacter diarrhea (Resolved) Essential hypertension (Chronic 04/04/11) Rheumatoid arthritis (Chronic) Intracranial hemorrhage (Acute 03/20/13) Cerebral amyloid angiopathy (Chronic 04/25/13) Sensorineural hearing loss (SNHL) of left ear (Chronic) Anxiety (Chronic 07/24/13) Sleep apnea (Chronic 07/28/13) Mixed stress and urge urinary incontinence (Chronic 01/12/14) 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) Chronic kidney disease (CKD) stage G3a/A2, moderately decreased glomerular filtration rate (GFR) between 45-59 mL/min/1.73 square meter and albuminuria creatinine ratio between 30-299 mg/g (Chronic 11/18/14) Asthma due to seasonal allergies (Chronic 06/04/15) Eczema (Chronic 03/08/16) Chronic disease anemia (Chronic 07/04/17) Anxiety (Chronic ~1999) Cataract (Chronic ~1998) Eczema (Chronic) Fecal incontinence (Chronic) Hearing loss (Chronic ~1998) Hyperlipidemia (Chronic ~1998) Hypertension (Chronic) Rheumatoid arthritis (Chronic ~1979) Seasonal allergies (Chronic ~2012) Urinary incontinence (Chronic) Vision abnormalities (Chronic) Body mass index (BMI) of 25.0 to 29.9 (Resolved 04/23/14) Chickenpox (Resolved ~1951) Ischemic stroke (Resolved ~2013) Measles (Resolved ~1951) Mumps (Resolved ~1951) Rubella (Resolved ~1951) Surgical History History of ectopic (Resolved ~1971) History of cataract removal with insertion of prosthetic lens (~2015) History of third molar tooth extraction (~1994) History of tonsillectomy (~1951) S/P total abdominal hysterectomy and bilateral salpingo-oophorectomy (~1973) Status post appendectomy (~1973) Status post bunionectomy (~2004) Status post cholecystectomy (~1994) Family History Child Melanoma Social History household members: children Smoking Status: Former smoker Exam Initial Vital Signs Initial Vital Signs: Vital Signs Temperature 97.9 F 12/13/17 10:06 Pulse Rate 72 12/13/17 10:06 Respiratory Rate 15 12/13/17 10:06 Blood Pressure 183/78 H 12/13/17 10:06 Pulse Oximetry 95 12/13/17 10:06 GEN: Alert elderly female appears in pain HEENT: Head atraumatic,EOMI, pupils reactive, face symmetric, neck is supple CARDIOVASCULAR: Regular rate and rhythm without murmurs, rubs or gallops. RESPIRATORY: Breath sounds equal bilaterally, no wheezes rales or rhonchi. ABDOMEN: Soft, nontender. Normoactive bowel sounds all 4 quadrants. No guarding or rebound. EXTREMITIES: Normal range of motion, no clubbing or edema. Neurovascularly intact NEUROLOGICAL: Alert and oriented x4.Normal gait and speech. Cranial nerves II through XII grossly intact. Candlemaker strength equal bilaterally no appreciated a facial or dysarthria SKIN: Warm, dry, no laceration, no petechiae, no rashes or lesions. Scores NIH Stroke Scale Level of Conciousness: Alert, keenly responsive Ask month/age: Answers both questions correctly. Open/close eyes, close hand: Performs both tasks correctly Best gaze horizontal: Normal Visual padron: No visual loss Facial palsy: Normal symetrical movement Left arm drift: No drift for full 10 sec Right arm drift: No drift for full 10 sec Left leg drift: No drift for full 10 sec Right leg drift: No drift for full 10 sec Limb ataxia: Absent Sensory on face/arms/legs: Normal, no sensory loss Best language: No aphasia, normal Dysarthria: Normal Extinction or inattention: No abnormality Total NIH Stroke scale score: 0 Course Orders Ordered: ED Orders 12/13/17 10:05 CT head/brain wo con Stat Discontinued Medications Labetalol HCl (Normodyne) 20 mg IV NOW ONE Stop: 12/13/17 10:18 Last Admin: 12/13/17 10:18 Dose: 20 mg Morphine Sulfate (Morphine Sulfate) 2 mg IV NOW ONE Stop: 12/13/17 10:31 Last Admin: 12/13/17 10:35 Dose: 2 mg Ondansetron HCl (Zofran) 4 mg IV NOW ONE Stop: 12/13/17 10:35 Last Admin: 12/13/17 10:35 Dose: 4 mg Vital Signs - 8 hr 12/13/17 10:06 12/13/17 10:15 12/13/17 10:30 Temperature 97.9 F Pulse Rate 72 74 65 Respiratory Rate 15 11 L 12 Blood Pressure 183/78 H Blood Pressure [Right Arm] 153/66 H 164/72 H Pulse Oximetry 95 95 96 12/13/17 10:48 12/13/17 10:54 Temperature Pulse Rate 71 69 Respiratory Rate 13 15 Blood Pressure 180/73 H Blood Pressure [Right Arm] 181/81 H Pulse Oximetry 95 97 MDM - Neuro Symptoms/Deficit Medical Records Attestation: I reviewed the patient's medical records. Imaging Data CT scan - head: Radiologist's impression: PROCEDURE: CT HEAD/BRAIN WO CON INDICATIONS: stroke symptoms change in metal status TECHNIQUE: Noncontrast 4.5 mm thick angled axial sections acquired from the foramen magnum to the vertex, with coronal and sagittal reformats. For radiation dose reduction, the following was used: automated exposure control, adjustment of mA and/or kV according to patient size. COMPARISON: [facility], CT, CT HEAD/BRAIN WO CON, 12/06/2017, 15:59. FINDINGS: Image quality: Excellent. CSF spaces: Basal cisterns are patent. No extra-axial fluid collections. Ventricles are normal in size and shape on the left but mildly compressed on the right by the hemorrhage discussed below. Brain: No midline shift. No intracranial masses but there is hemorrhage within the right temporal region in an area measuring up to 5.8 cm AP, 3.8 cm transverse and 3.6 cm craniocaudad.. Mendoza-white matter interface is abnormal in the area immediately adjacent to the hemorrhage and also more posteriorly within the posterior temporal and occipital regions on the right where prior encephalomalacia from chronic infarctions appears present. There also is relatively prominent microvascular atherosclerotic change in the deep white matter each hemisphere has a pre-existing condition. There is no Skull and face: Calvarium and visualized facial bones are intact, without suspicious lesions. Sinuses: Visualized sinuses and mastoids are clear. IMPRESSION: There is an acute/subacute hemorrhage within the right temporal lobe, with adjacent mass effect there is moderate, adjacent to an area of prior old stroke with encephalomalacia more posteriorly. Superimposed moderately severe microvascular atherosclerotic change is again seen within the deep white matter each hemisphere. This information was immediately conveyed to the emergency room physician caring for the patient at 10:05. The images were placed on lying into the PACS system 1 minute earlier. Dictated by: Terry Costello M.D. on 12/13/2017 at 10:05 ECG Data Attestation: I personally reviewed and interpreted this ECG as follows: Prior ECG tracings: available for review Interpretation: Normal sinus rhythm rate [address] changes no T-wave inversions similar to previous EKG MDM Narrative Medical decision making narrative: Radiologist Dr. Terry Costello called me with the initial read of subarachnoid hemorrhage. I have discussed case with Dr. Rojas at [facility]. Images have been pushed. Patient remains neurovascularly intact. She has been given a dose of labetalol blood pressure now 153/66. If discussed with the patient and son-in-law patient will be going by [place] to [facility]. Discharge Plan Departure Patient Disposition: [facility] Clinical Impression: Intracranial hemorrhage Discharge Date/Time: 12/13/17 10:45 Interventions: ED Discharge Assessment Last Done: 12/13/17 10:54 Prescriptions: No Action biotin 1 dose PO DIRECTED Qty: 0 RF: 0 triamcinolone acetonide 0.1 % cream Topical BID Qty: 1 RF: 0 oxybutynin chloride 5 mg tablet 5 mg PO BID Qty: 60 RF: 4 omeprazole 20 mg capsule,delayed release(DR/EC) 20 mg PO QDAY Qty: 90 RF: 3 potassium chloride [Klor-Con M20] 20 mEq tablet,ER particles/crystals 40 meq PO BID Qty: 360 RF: 3 amlodipine [Norvasc] 5 mg tablet 5 mg PO QDAY Qty: 90 RF: 1 prednisone 1 mg tablet 3 mg PO DAILY RF: 0 diphenhydramine HCl [Benadryl] 25 mg Capsule 50 mg PO BEDTIME PRN (Reason: Sleep) RF: 0 irbesartan 150 mg tablet 150 mg PO DAILY Qty: 30 RF: 1 spironolacton-hydrochlorothiaz [Aldactazide] 25-25 mg tablet 1 tab PO DAILY RF: 0 leflunomide 20 mg tablet 20 mg PO DAILY RF: 0 gabapentin 300 mg capsule 300 mg PO BID RF: 0 magnesium chloride [Mag 64] 64 mg tablet,delayed release (DR/EC) 2 tab PO BID RF: 0
[2017-12-13 10:15] VITALS: BP 153/66; PULSE 74; RESP 11; O2SAT 95
[2017-12-13] MEDS: LABETALOL 100 MG/20ML MDV 20 MG IV (10:18)
[2017-12-13 10:30] VITALS: BP 164/72; PULSE 65; RESP 12; O2SAT 96
[2017-12-13] MEDS: ONDANSETRON 4 MG/2 ML INJ IV (10:35)
[2017-12-13] MEDS: MORPHINE 5 MG/ML INJ 2 MG IV (10:35)
[2017-12-13 10:48] VITALS: BP 181/81; PULSE 71; RESP 13; O2SAT 95
[2017-12-13 10:54] VITALS: BP 180/73; PULSE 69; RESP 15; O2SAT 97
== END 2017-12-13 10:45 | disposition short-term general hospital (02) ==
LOC: ED 10:44
PROVIDERS: Emergency Provider Emergency Medicine; Family Provider Family Medicine; PCP Family Medicine
DX: I62.9 Nontraumatic intracranial hemorrhage, unspecified (principal)
CPT/HCPCS: 70450; 93005; 93010; 93041; 96374; 96375; 99283; 99291; J2270; J2405

== ENCOUNTER → 2018-01-28 10:15 | Outpatient (CLI) | payer MEDICARE, OTHER, SELFPAY ==
[2017-12-05 19:11] VITALS: BMI 22.4
[2018-01-28 12:40] LABS: Add Manual Diff / Slide Review NO; Basophils Percent Auto 0.8 % (0-2); Eosinophils Percent Auto 3.2 % (2-4); Hematocrit 28.5 % (36-46); Hemoglobin 9.3 g/dL (12.0-16.0); Lymphocytes Percent Auto 9.1 % (25-40); Mean Corpuscular HGB Conc 32.8 % (30-36); Mean Corpuscular Hemoglobin 31.8 PG (26-34); Monocytes Percent Auto 8.6 % (3-14); Neutrophils Absolute Auto 10200 /uL (3000-5900); Neutrophils Percent Auto 78.3 % (50-75); Platelet Count 416 X10^3/uL (150-400); Red Blood Cell Count 2.93 X10^6/uL (4.0-5.2); Red Cell Distribution Width 14.5 % (11.6-14.8)
[2018-01-28 13:05] LABS: Alanine Aminotransferase 35 IU/L (9-52); Albumin 3.9 g/dL (3.5-5.0); Albumin Globulin Ratio 1.3 (1.0-2.8); Alkaline Phosphatase 80 U/L (38-126); Aspartate Aminotransferase 33 IU/L (14-36); BUN Creatinine Ratio 17.3 (6-22); Bilirubin Total 0.6 mg/dL (0.2-1.3); Blood Urea Nitrogen 19 mg/dL (7-17); Calcium 9.2 mg/dL (8.4-10.2); Carbon Dioxide 20 mmol/L (22-32); Chloride 101 mmol/L (98-107); Globulin 3.1 g/dL (1.7-4.1); Glucose 133 mg/dL (80-110); HEMOLYSIS < 15 (0-50); Phenytoin / Dilantin 8.8 ug/mL (10-20); Potassium 3.6 mmol/L (3.4-5.1); Sodium 137 mmol/L (137-145)
== END ==
PROVIDERS: PCP Family Medicine; Visit Provider Family Medicine
DX: E85.4 Organ-limited amyloidosis (principal); G40.909 Epilepsy, unspecified, not intractable, without status epilepticus; G45.9 Transient cerebral ischemic attack, unspecified; I68.0 Cerebral amyloid angiopathy; I69.398 Other sequelae of cerebral infarction
CPT/HCPCS: 36415; 80053; 80185; 84443; 85025

== ENCOUNTER → 2018-01-29 11:58 | Outpatient (CLI) | payer MEDICARE, OTHER, SELFPAY ==
[2017-12-05 19:11] VITALS: BMI 22.4
== END ==
PROVIDERS: Family Provider Family Medicine; PCP Family Medicine; Visit Provider Family Medicine
DX: D72.829 Elevated white blood cell count, unspecified (principal)

== ENCOUNTER → 2018-01-30 19:21 | Outpatient (REF) | payer MEDICARE, OTHER, SELFPAY ==
[2017-12-05 19:11] VITALS: BMI 22.4
[2018-01-30 19:52] LABS: Appearance Urine UA SL CLOUDY; Bilirubin Urine UA NEGATIVE (NEGATIVE); Color Urine UA YELLOW; Glucose Urine UA NEGATIVE (Normal); Ketones Urine UA NEGATIVE (NEGATIVE); Leukocyte Esterase Urine UA NEGATIVE (NEGATIVE); Nitrite Urine UA NEGATIVE (Negative); Occult Blood Urine UA NEGATIVE (Negative); Protein Urine UA NEGATIVE (Negative); Specific Gravity Urine UA 1.015 (1.000-1.035); Urobilinogen Urine UA 0.2 E.U./dL (0.2)
[2018-01-30 20:17] LABS: Bacteria Urine Moderate (10-30); Hyaline Casts Urine 5-10/LPF; RBC Urine 0-1/HPF (0-5/HPF); Squamous Epithelial Cell Urine 5-10 /HPF; WBC Urine 0-1/HPF (0-5/HPF)
[2018-01-30 20:18] LABS: Culture Indicated Urine Cult Not Indicated
== END ==
LOC: LAB 19:21
PROVIDERS: Family Provider Family Medicine; PCP Family Medicine; Visit Provider Family Medicine
DX: N39.0 Urinary tract infection, site not specified (principal)
CPT/HCPCS: 81001

== ENCOUNTER 2018-02-04 14:49 | Inpatient (IN) | payer MEDICARE, OTHER, SELFPAY ==
[2017-12-05 19:11] VITALS: BMI 22.4
[2018-02-04] VITALS (8 sets, daily range): BP systolic 118–188; BP diastolic 48–147; PULSE 94–121; RESP 13–25; TEMP 36.7–37.2; O2SAT 94–97; BMI 19.6
--- NOTE | 2018-02-04 15:33 | ED_ITS ---
HPI - General Adult General Chief complaint: Abdominal Pain Stated complaint: off her meds,not sleeping,thinks dehydrated Time Seen by Provider: 02/04/18 15:21 Source: family Limitations: other ( altered mental status) History of Present Illness HPI narrative: patient is a 72-year-old female with a prior history of 2 CVAs and a known history of behavioral issues her being taking care of by her daughters at home here for evaluation of the patient not being on her medication for the past several days, not drinking for the past several days and not eating for the past several days. The patient cannot provide any history for herself. All of the history and review of systems comes from the family was at bedside. They state that the patient has been complaining of abdominal pain however they were unsure what exactly is hurting her. They also think that she was having some right shoulder pain however seems to be moving all of her extremities today. The home health nurse came out and was concerned about dehydration and malnutrition . They talked to Dr. Matt's nurse who told them to bring her into the emergency department. Related Data Home Medications Medication Instructions Recorded Confirmed gabapentin 300 mg PO QPM 12/13/17 02/04/18 leflunomide 20 mg PO DAILY 12/13/17 02/04/18 acetaminophen 650 mg PO Q6H PRN 02/04/18 02/04/18 amlodipine 10 mg PO QAM 02/04/18 02/04/18 calcium carbonate 500 mg PO TID PRN 02/04/18 02/04/18 hydrocortisone 1 applic TOPICAL BID PRN 02/04/18 02/04/18 labetalol 1 tab PO BID 02/04/18 02/04/18 losartan 1 tab PO QAM 02/04/18 02/04/18 magnesium hydroxide 10 ml PO Q OTHER DAY 02/04/18 02/04/18 magnesium oxide 400 mg PO DAILY 02/04/18 02/04/18 melatonin 3 mg PO BEDTIME 02/04/18 02/04/18 ondansetron 1 tab PO Q8H PRN 02/04/18 02/04/18 phenytoin sodium extended 1 cap PO DAILY 02/04/18 02/04/18 prednisone 02/04/18 prednisone 02/04/18 prednisone 5 mg PO QAM 02/04/18 02/04/18 quetiapine 12.5 mg PO BEDTIME PRN 02/04/18 02/04/18 quetiapine 37.5 mg PO QPM 02/04/18 02/04/18 sennosides [senna] 17.2 mg PO BID PRN 02/04/18 02/04/18 spironolactone 50 mg PO QAM 02/04/18 02/04/18 triamcinolone acetonide 0 gm TOPICAL BID PRN 02/04/18 02/04/18 Previous Rx's Medication Instructions Recorded omeprazole 20 mg PO QDAY #90 cap 10/16/17 potassium chloride [Klor-Con M20] 40 meq PO BID #360 ter 10/29/17 Allergies Allergy/AdvReac Type Severity Reaction Status Date / Time Penicillins [PENICILLINS] Allergy Mild ITCH/EARS Verified 02/04/18 15:03 FEEL FULL Sulfa (Sulfonamide Allergy Mild ITCH/EAR Verified 02/04/18 15:03 Antibiotics) FEEL FULL cephalexin [CEPHALEXIN] Allergy Unknown unknown Verified 02/04/18 15:03 coconut oil [COCONUT OIL] Allergy Unknown rash, Verified 02/04/18 15:03 itching Review of Systems Review of Systems Patient unable to provide any review of systems. Family provides review of systems that are listed below Constitutional Denies fever(s) Gastrointestinal Gastrointestinal: Reports abdominal pain Musculoskeletal Comments: right shoulder pain Neurologic Reports behavioral changes and Reports confusion Psychiatric Reports behavioral changes and Reports confusion [facility] Medical History Campylobacter diarrhea (Resolved) Essential hypertension (Chronic 04/04/11) Rheumatoid arthritis (Chronic) Intracranial hemorrhage (Acute 03/20/13) Cerebral amyloid angiopathy (Chronic 04/25/13) Sensorineural hearing loss (SNHL) of left ear (Chronic) Anxiety (Chronic 07/24/13) Sleep apnea (Chronic 07/28/13) Mixed stress and urge urinary incontinence (Chronic 01/12/14) 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) Chronic kidney disease (CKD) stage G3a/A2, moderately decreased glomerular filtration rate (GFR) between 45-59 mL/min/1.73 square meter and albuminuria creatinine ratio between 30-299 mg/g (Chronic 11/18/14) Asthma due to seasonal allergies (Chronic 06/04/15) Eczema (Chronic 03/08/16) Chronic disease anemia (Chronic 07/04/17) Anxiety (Chronic ~1999) Cataract (Chronic ~1998) Eczema (Chronic) Fecal incontinence (Chronic) Hearing loss (Chronic ~1998) Hyperlipidemia (Chronic ~1998) Hypertension (Chronic) Rheumatoid arthritis (Chronic ~1979) Seasonal allergies (Chronic ~2012) Urinary incontinence (Chronic) Vision abnormalities (Chronic) Body mass index (BMI) of 25.0 to 29.9 (Resolved 04/23/14) Chickenpox (Resolved ~1951) Ischemic stroke (Resolved ~2013) Measles (Resolved ~1951) Mumps (Resolved ~1951) Rubella (Resolved ~1951) Surgical History History of ectopic (Resolved ~1971) History of cataract removal with insertion of prosthetic lens (~2015) History of third molar tooth extraction (~1994) History of tonsillectomy (~1951) S/P total abdominal hysterectomy and bilateral salpingo-oophorectomy (~1973) Status post appendectomy (~1973) Status post bunionectomy (~2004) Status post cholecystectomy (~1994) Family History Child Melanoma Social History household members: children Smoking Status: Former smoker Exam Initial Vital Signs Initial Vital Signs: Vital Signs Pulse Rate 106 H 02/04/18 14:56 Respiratory Rate 22 02/04/18 14:56 Blood Pressure 188/147 H 02/04/18 14:56 Pulse Oximetry 97 02/04/18 14:56 Const General: No cooperative and well groomed Orientation: alert, awake and confused Limitations: altered mental status HENMT Head: normal to inspection and normocephalic Resp Effort & Inspection: normal respiratory effort Cardio Rate: tachycardic Rhythm: regular rhythm Pulses: radial pulses present GI Inspection: non-distended Palpation: soft Skin Lesions: no lesions Rashes: no rashes Neuro Other: patient does not answer any questions. She does have outburst where she screams. She does not follow any commands however she is alert and awake moves all 4 extremities spontaneously. Family states that the screaming has been getting worse over the past couple days. Extrem Other: moves all 4 extremities however not to command Psych Appearance: well kempt Course Orders Ordered: ED Orders 02/04/18 16:10 Urine Culture Stat Urine Microscopic Stat 02/04/18 16:25 Complete Blood Count AUTO DIFF Stat Comprehensive Metabolic Panel Stat Lipase Stat 02/04/18 18:39 Consult to Physician Routine Ciprofloxacin (Cipro) 400 mg in 200 mls @ 200 mls/hr IV NOW YADY Sodium Chloride (Normal Saline 0.9%) 1,000 mls @ 125 mls/hr IV CONT YADY Lorazepam (Ativan) 1 mg IV Q2HR PRN PRN Reason: Anxiety Ondansetron HCl (Zofran) 4 mg IV Q4HR PRN PRN Reason: Nausea And Vomiting Discontinued Medications Ceftriaxone Sodium/Dextrose (Rocephin) 1 gm in 50 mls @ 100 mls/hr IV NOW ONE Stop: 02/04/18 19:00 Lorazepam (Ativan) 1 mg IV NOW ONE Stop: 02/04/18 18:32 Lorazepam (Ativan) 1 mg IV NOW ONE Stop: 02/04/18 18:39 Vital Signs - 8 hr 02/04/18 14:56 02/04/18 15:04 02/04/18 17:56 Temperature 98.0 F Pulse Rate 106 H 121 H Respiratory Rate 22 25 H Blood Pressure 188/147 H Blood Pressure [Left Arm] 144/101 H Pulse Oximetry 97 94 Medical Decision Making Medical Records Medical records reviewed: Yes I reviewed the patient's medical records. Lab Data Lab results reviewed: Yes I reviewed the patient's lab results. Result diagrams: 02/04/18 16:25 02/04/18 16:25 Lab Results 02/04/18 02/04/18 02/04/18 Range/Units 16:10 16:25 16:25 WBC 10.9 (4.5-11.0) X10^3/uL RBC 3.04 L (4.0-5.2) X10^6/uL Hgb 9.5 L (12.0-16.0) g/dL Hct 28.7 L (36-46) % MCV 94.4 (80-100) fL MCH 31.4 (26-34) PG MCHC 33.2 (30-36) % RDW 14.3 (11.6-14.8) % Plt Count 587 H (150-400) X10^3/uL Neut % (Auto) 67.0 (50-75) % Lymph % (Auto) 16.7 L (25-40) % [place] % (Auto) 12.0 (3-14) % Eos % (Auto) 3.3 (2-4) % Baso % (Auto) 1.0 (0-2) % Neut # (Auto) 7300 H (7504-0222) /uL Sodium 136 L (137-145) mmol/L Potassium 3.1 L (3.4-5.1) mmol/L Chloride 94 L (98-107) mmol/L Carbon Dioxide 26 (22-32) mmol/L BUN 17 (7-17) mg/dL Creatinine 1.20 H (0.52-1.04) mg/dL Estimated GFR 44.3 L (>60) mL/min BUN/Creatinine Ratio 14.2 (6-22) Glucose 119 H (80-110) mg/dL Calcium 9.4 (8.4-10.2) mg/dL Total Bilirubin 0.4 (0.2-1.3) mg/dL AST 33 (14-36) IU/L ALT 38 (9-52) IU/L Alkaline Phosphatase 95 (38-126) U/L Total Protein 7.3 (6.3-8.2) g/dL Albumin 4.3 (3.5-5.0) g/dL Globulin 3.0 (1.7-4.1) g/dL Albumin/Globulin Ratio 1.4 (1.0-2.8) Lipase 75 (23-300) U/L Urine RBC 5-10/hpf H (0-5/HPF) Urine WBC 30-100/hpf H (0-5/HPF) Ur Squamous Epith Cells 1-5 /hpf Ur Transition Epith Cell 1-5/hpf (0-5/HPF) Ur Renal Epithelial Cell 1-5/hpf Urine Bacteria Many (>30) H (None) Hyaline Casts 5-10/lpf (None) Ur Culture Indicated? Specimen cultured Micro UA Comment Not Reportable Urine Dip Bedside Urine Glucose Negative Bedside Urine Bilirubin - Negative Bedside Urine Ketone +/- 5 Urine Specific [place] 1.015 Bedside Urine Occult Blood +/- Bedside Urine pH 6.0 Bedside Urine Protein +/- 15 Bedside Urine Urobilinogen - Negative Bedside Urine Nitrite + Positive Bedside Urine Leukocytes + 70 Esterase Point of care testing: Urine Dip Bedside Urine Glucose Negative Bedside Urine Bilirubin - Negative Bedside Urine Ketone +/- 5 Urine Specific [place] 1.015 Bedside Urine Occult Blood +/- Bedside Urine pH 6.0 Bedside Urine Protein +/- 15 Bedside Urine Urobilinogen - Negative Bedside Urine Nitrite + Positive Bedside Urine Leukocytes + 70 Esterase MDM Narrative Medical decision making narrative: Very difficult to obtain any history from the family. The patient was unable to provide any history. She does have a nitrite positive urine which very well could be causing this abdominal pain and the patient not wanting to take any of her oral medications. I do feel that a trial of oral antibiotics would not be successful given the patient's current status. She has no gross deformities in the extremities noted on the exam. She seems to be at baseline with regard to her mental status except for screaming out more. Patient did have an elevated heart rate upon arrival which did improve. She would not drink any fluids for us here in the ER. I discussed the case with Dr. May who is on-call for the patient's primary care doctor. I was unable to get in touch with the patient's primary care doctor. I feel that bringing her in for IV antibiotics for the urinary tract infection to see if this does not improve her abdominal pain which may improve her oral intake is warranted. I feel that the changes in her mental status per her family at bedside is most likely the fact that she has not been on any of her medicines for the past 4 days. Patient was given Ativan here in the emergency department and this was okayed by the patient's family. They are okay with the admission to the hospital. Discharge Plan Departure Patient Disposition: Admitted as Observation Clinical Impression: Urinary tract infection, Acute alteration in mental status, Insomnia Admit Date/Time: 02/04/18 18:42 Admit Provider: Caitlyn May
[2018-02-04 16:47] LABS: Bacteria Urine Many (>30); Hyaline Casts Urine 5-10/LPF; RBC Urine 5-10/HPF (0-5/HPF); Renal Epithelial Cells Urine 1-5/HPF; Squamous Epithelial Cell Urine 1-5 /HPF; Transitional Epi Cells Urine 1-5/HPF (0-5/HPF); WBC Urine 30-100/HPF (0-5/HPF)
[2018-02-04 16:52] LABS: Culture Indicated Urine Specimen Cultured
[2018-02-04 17:17] LABS: Add Manual Diff / Slide Review NO; Eosinophils Percent Auto 3.3 % (2-4); Hematocrit 28.7 % (36-46); Hemoglobin 9.5 g/dL (12.0-16.0); Lymphocytes Percent Auto 16.7 % (25-40); Mean Corpuscular HGB Conc 33.2 % (30-36); Mean Corpuscular Hemoglobin 31.4 PG (26-34); Mean Corpuscular Volume 94.4 fL (80-100); Neutrophils Absolute Auto 7300 /uL (3000-5900); Platelet Count 587 X10^3/uL (150-400); Red Blood Cell Count 3.04 X10^6/uL (4.0-5.2); Red Cell Distribution Width 14.3 % (11.6-14.8); White Blood Cell Count 10.9 X10^3/uL (4.5-11.0)
[2018-02-04 17:21] LABS: Alanine Aminotransferase 38 IU/L (9-52); Albumin 4.3 g/dL (3.5-5.0); Albumin Globulin Ratio 1.4 (1.0-2.8); Alkaline Phosphatase 95 U/L (38-126); Aspartate Aminotransferase 33 IU/L (14-36); BUN Creatinine Ratio 14.2 (6-22); Bilirubin Total 0.4 mg/dL (0.2-1.3); Blood Urea Nitrogen 17 mg/dL (7-17); Calcium 9.4 mg/dL (8.4-10.2); Carbon Dioxide 26 mmol/L (22-32); Chloride 94 mmol/L (98-107); Estimated Glomerular Filt Rate 44.3 mL/min (>60); Glucose 119 mg/dL (80-110); HEMOLYSIS < 15 (0-50); Lipase 75 U/L (23-300); Potassium 3.1 mmol/L (3.4-5.1); Sodium 136 mmol/L (137-145); Total Protein 7.3 g/dL (6.3-8.2)
[2018-02-04] MEDS: CIPROFLOXACIN 400 MG/200 ML PIGGYBACK 200 MG IV (19:09)
[2018-02-04] MEDS: LORazepam 2 MG/ML SYRINGE 1 MG IV (19:09)
[2018-02-04] MEDS: SODIUM CHLORIDE 0.9% 1,000 ML 125 ML IV (19:10)
--- NOTE | 2018-02-04 20:48 | PM.HP.1 ---
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 Since hospital discharge patient has been very agitated at home, progressively worse in the last three days. Her adult daughters have been her primary caregivers and with her around the clock. They thought that bringing her home would be comforting however she has not done well. It has been difficult to have her eat and drink consistently though she is taking some. She is up and down all the time and only sleeps for a few hours the first part of the night. Typically she wakes between two and four in the morning and is up the rest of the day except for periodic naps. She is very impulsive. In the last three days daughters have been having increasing difficulty getting the patient to take her meds. She last had her bedtime Seroquel three or four nights ago though daughter's questions whether it was helpful. Last morning medications were the day prior to admission. She has had what appears to be nausea as well as diarrhea though no fevers or vomiting. She has intermittently complained of abdominal pain. Daughters feel she is hallucinating frequently and reaching for objects that are not there. She is restless and irritable. Daughter states that she had a UTI while hospitalized at [facility] and became acutely delirious. Delirium cleared somewhat with treatment of the UTI. They are concerned she has a UTI again. Daughters are also concerned about poor oral intake and dehydration. From a neurologic standpoint, daughters note that her speech has improved when she is coherent and her gait has improved as well. No new focal neurologic deficits from family's perspective. 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) Chronic kidney disease (CKD) stage G3a/A2, moderately decreased glomerular filtration rate (GFR) between 45-59 mL/min/1.73 square meter and albuminuria creatinine ratio between 30-299 mg/g (Chronic 11/18/14) Asthma due to seasonal allergies (Chronic 06/04/15) Eczema (Chronic 03/08/16) Chronic disease anemia (Chronic 07/04/17) Anxiety (Chronic ~1999) Cataract (Chronic ~1998) Eczema (Chronic) Fecal incontinence (Chronic) Hearing loss (Chronic ~1998) Hyperlipidemia (Chronic ~1998) Hypertension (Chronic) Rheumatoid arthritis (Chronic ~1979) Seasonal allergies (Chronic ~2012) Urinary incontinence (Chronic) Vision abnormalities (Chronic) Body mass index (BMI) of 25.0 to 29.9 (Resolved 04/23/14) Chickenpox (Resolved ~1951) Ischemic stroke (Resolved ~2013) Measles (Resolved ~1951) Mumps (Resolved ~1951) Rubella (Resolved ~1951) Surgical History History of ectopic (Resolved ~1971) History of cataract removal with insertion of prosthetic lens (~2015) History of third molar tooth extraction (~1994) History of tonsillectomy (~1951) S/P total abdominal hysterectomy and bilateral salpingo-oophorectomy (~1973) Status post appendectomy (~1973) Status post bunionectomy (~2004) Status post cholecystectomy (~1994) Family & Social History Family History: Reviewed 02/04/18 by Caitlyn May DO Social History: household members children Safety & Behavioral: Feels Safe in Current Yes Environment Been Physically Hurt or No Threatened By a Person Tobacco & Substance use: Smoking Status Former smoker alcohol intake frequency holiday/special occasion Substance Use Type marijuana Meds Home Medications Medication Instructions Recorded Confirmed Type omeprazole 20 mg PO QDAY #90 cap 10/16/17 02/04/18 Rx potassium chloride [Klor-Con M20] 40 meq PO BID #360 ter 10/29/17 02/04/18 Rx gabapentin 300 mg PO QPM 12/13/17 02/04/18 History leflunomide 20 mg PO DAILY 12/13/17 02/04/18 History acetaminophen 650 mg PO Q6H PRN 02/04/18 02/04/18 History amlodipine 10 mg PO QAM 02/04/18 02/04/18 History calcium carbonate 500 mg PO TID PRN 02/04/18 02/04/18 History hydrocortisone 1 applic TOPICAL BID PRN 02/04/18 02/04/18 History labetalol 1 tab PO BID 02/04/18 02/04/18 History losartan 1 tab PO QAM 02/04/18 02/04/18 History magnesium hydroxide 10 ml PO Q OTHER DAY 02/04/18 02/04/18 History magnesium oxide 400 mg PO DAILY 02/04/18 02/04/18 History melatonin 3 mg PO BEDTIME 02/04/18 02/04/18 History ondansetron 1 tab PO Q8H PRN 02/04/18 02/04/18 History phenytoin sodium extended 1 cap PO DAILY 02/04/18 02/04/18 History prednisone 02/04/18 History prednisone 02/04/18 History prednisone 5 mg PO QAM 02/04/18 02/04/18 History quetiapine 12.5 mg PO BEDTIME PRN 02/04/18 02/04/18 History quetiapine 37.5 mg PO QPM 02/04/18 02/04/18 History sennosides [senna] 17.2 mg PO BID PRN 02/04/18 02/04/18 History spironolactone 50 mg PO QAM 02/04/18 02/04/18 History triamcinolone acetonide 0 gm TOPICAL BID PRN 02/04/18 02/04/18 History Allergies Allergy/AdvReac Type Severity Reaction Status Date / Time Penicillins [PENICILLINS] Allergy Mild ITCH/EARS Verified 02/04/18 15:03 FEEL FULL Sulfa (Sulfonamide Allergy Mild ITCH/EAR Verified 02/04/18 15:03 Antibiotics) FEEL FULL cephalexin [CEPHALEXIN] Allergy Unknown unknown Verified 02/04/18 15:03 coconut oil [COCONUT OIL] Allergy Unknown rash, Verified 02/04/18 15:03 itching Review of Systems Review of Systems unobtainable due to mental status Exam Vital Signs (past 8 hours): - 02/04/18 14:56 02/04/18 15:04 02/04/18 17:56 Temperature 98.0 F Pulse Rate 106 H 121 H Respiratory Rate 22 25 H Blood Pressure 188/147 H Blood Pressure [Left Arm] 144/101 H Pulse Oximetry 97 94 02/04/18 19:15 02/04/18 20:13 Temperature Pulse Rate 100 H 94 H Respiratory Rate 14 13 Blood Pressure Blood Pressure [Left Arm] 160/86 H Pulse Oximetry 97 95 Oxygen Delivery Method Room Air Narrative Exam Narrative: General: Thin older woman resting comfortably in bed. Intermittently looks up and around the room. No distress. HEENT: Normocephalic atraumatic. Conjunctiva clear. Moist mucosa. CV: Regular rate and rhythm. Lungs: Clear to auscultation bilaterally without wheezes. Abdomen: Active bowel tones throughout. Soft, nontender, nondistended. Extremities: Very thin lower extremities without edema. 2+ pedal pulses bilaterally. Neuro: Patient does not follow commands. Patient is sleeping though arouses to touch. Patient is not oriented. Objective Labs Result Diagrams: 02/04/18 16:25 02/04/18 16:25 Labs: Laboratory Results - last 24 hr 02/04/18 02/04/18 02/04/18 16:10 16:25 16:25 WBC 10.9 RBC 3.04 L Hgb 9.5 L Hct 28.7 L MCV 94.4 MCH 31.4 MCHC 33.2 RDW 14.3 Plt Count 587 H Neut % (Auto) 67.0 Lymph % (Auto) 16.7 L [place] % (Auto) 12.0 Eos % (Auto) 3.3 Baso % (Auto) 1.0 Neut # (Auto) 7300 H Sodium 136 L Potassium 3.1 L Chloride 94 L Carbon Dioxide 26 BUN 17 Creatinine 1.20 H Estimated GFR 44.3 L BUN/Creatinine Ratio 14.2 Glucose 119 H Calcium 9.4 Total Bilirubin 0.4 AST 33 ALT 38 Alkaline Phosphatase 95 Total Protein 7.3 Albumin 4.3 Globulin 3.0 Albumin/Globulin Ratio 1.4 Lipase 75 Urine RBC 5-10/hpf H Urine WBC 30-100/hpf H Ur Squamous Epith Cells 1-5 /hpf Ur Transition Epith Cell 1-5/hpf Ur Renal Epithelial Cell 1-5/hpf Urine Bacteria Many (>30) H Hyaline Casts 5-10/lpf Ur Culture Indicated? Specimen cultured Micro UA Comment Not Reportable Assessment & Plan (1) Acute encephalopathy: Current visit: Yes Status: Acute (2) Urinary tract infection: Qualifiers: Encounter type: Hematuria presence: Indwelling urinary catheter type: Urinary tract infection type: Current visit: Yes Status: Acute (3) Essential hypertension: Current visit: No Status: Chronic (4) Rheumatoid arthritis: Problem details: 04/2014: Leflunomide, prednisone 07/2013 started with rheum at [facility] methotrexate 03/2013 had hemorrhagic stroke followed by ischemic stroke Prednisone, plaquenil, orencia had been on enbrel and 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 and stopped Current visit: No Status: Chronic (5) Intracranial hemorrhage: Problem details: with micro hemorrhages Current visit: No Status: Acute (6) Cerebral amyloid angiopathy: Problem details: 03/31/2013 Large hemorrhagic stroke to the left temporal occipital area 07/03/2013 ischemic stroke right posterior sella [place] hemisphere Current visit: No Status: Chronic Plan: Assessment/Plan Narrative: 72-year-old female with hypertension, rheumatoid arthritis, recent hemorrhagic CVA now with acute encephalopathy and probable delirium secondary to UTI. Patient has not been well since her last CVA though acutely worse in the last three days. Preliminary urine positive for UTI with urine culture pending. I suspect her delirium is at least in part due to the UTI however she has been struggling since her last stroke. Doubt recurrent CVA given improvement in speech and gait per family as well as no new focal deficits. Acute encephalopathy: Will start by addressing her UTI and monitor for improvement. Low threshold to repeat a CT if no improvement to antibiotics. I would prefer to treat agitation with Zyprexa rather than benzodiazepines due to concern for worsening delirium with benzodiazepines. Acute UTI: Continue ciprofloxacin as patient has an allergy to cephalosporins. Follow-up urine culture for sensitivities. Hypertension: Restart home meds as able. Will monitor blood pressure closely given history of hemorrhagic strokes and treat as needed. Rheumatoid arthritis: Continue home meds. Diet: General diet. DVT prophylaxis: SCDs only. Anticoagulation contraindicated with recent hemorrhagic stroke. Code status: Full code. Disposition: This is a difficult situation given patient's high care needs. Will ask for assistance from care managers regarding discharge planning. I believe placement has had been tricky in the past due to patient's agitation.
[2018-02-04] MEDS: OLANZapine ODT 10 MG TAB 5 MG PO ×2 (21:28→22:58)
--- NOTE | 2018-02-04 23:09 | PC.NURSE ---
Evening Shift Note Pt alert and disoriented, confused, agitated and restless, yelling out of room and attempting to pull at lines. Daughter at bedside but severly exhausted, SENIOR RADIATION THERAPIST standing by to help w/ pt. Pt given olanzapine x1, after an hour pt no longer attempting to get out of bed, continuing to pull at lines and moaning/yelling from room. Dr May called for medication clarification, ok to give second dose of olanzapine up to TID PRN, order changed and updated, as well as Dilantin order. This RN gave second dose of olanzapine, pt attempting to spit medication out, but able to keep in mouth by pushing medication back in. Attempted to give others medication, pt very uncooperative and continually spitting medication out. Unable to give oral medication and documented as refused. IV fluids to be connected to pt when cooperative and not pulling at lines, night filler nurse aware. Report given to night filler RN, pt currently resting and no longer yelling from room.
[2018-02-05] VITALS (11 sets, daily range): BP systolic 108–161; BP diastolic 51–89; PULSE 102–112; RESP 16–20; TEMP 36.8–37.3; O2SAT 92–98; BMI 41.0
[2018-02-05] MEDS: OLANZapine 10 MG VIAL 5 MG IM (05:37)
--- NOTE | 2018-02-05 05:59 | PC.NURSE ---
Pt anxious, agitated, uncooperative, and combative throughout shift. Constantly crying/yelling out. Persistently tries to get out of the bed and pull at IV lines. Zyprexa IM given at 0545. Incontinent, changed entire linens since patient pulled bed apart and urinated on to sheets. Difficult getting an accurate BP on her bc she is constantly moving and trying to take the cuff off.
--- NOTE | 2018-02-05 08:31 | P.PN_ITS ---
Subjective Date Patient Seen: 02/05/18 Time Patient Seen: 07:40 Interval history: Nursing reports a difficult night due to agitation. Patient received two doses of Zydis which helped to a point. Patient become severely agitated early in the morning and was given IM olanzapine after refusing Zydis. Incontinent of urine overnight. Patient's daughter who stayed with her all night said her night was MUCH better than it has been at home. She slept for several hours here and there and was not up and down all night like she has been at home. This morning she has calling out and irritable. Exam Vital Signs (past 8 hours): - 02/05/18 03:30 Temperature 99.0 F Pulse Rate 102 H Respiratory Rate 17 Blood Pressure 161/77 H Pulse Oximetry 95 Oxygen Delivery Method Room Air Oxygen Flow Rate 0 Narrative Exam Narrative: General: Thin older woman initially sideways and uncomfortable in the bed however upon repositioning she was quite calm. She repeatedly speaks to her daughter Alena. Speech is clear however does not make sense in the context of the situation. Extremities: No edema. Neuro: Awake and alert though not oriented. Speech is clear. Thoughts are unorganized. Judgment and insight impaired. Patient makes eye contact but appears to look right through the speaker. Objective Labs Result Diagrams: 02/04/18 16:25 02/04/18 16:25 Labs: Laboratory Results - last 24 hr 02/04/18 02/04/18 02/04/18 16:10 16:25 16:25 WBC 10.9 RBC 3.04 L Hgb 9.5 L Hct 28.7 L MCV 94.4 MCH 31.4 MCHC 33.2 RDW 14.3 Plt Count 587 H Neut % (Auto) 67.0 Lymph % (Auto) 16.7 L Coke % (Auto) 12.0 Eos % (Auto) 3.3 Baso % (Auto) 1.0 Neut # (Auto) 7300 H Sodium 136 L Potassium 3.1 L Chloride 94 L Carbon Dioxide 26 BUN 17 Creatinine 1.20 H Estimated GFR 44.3 L BUN/Creatinine Ratio 14.2 Glucose 119 H Calcium 9.4 Total Bilirubin 0.4 AST 33 ALT 38 Alkaline Phosphatase 95 Total Protein 7.3 Albumin 4.3 Globulin 3.0 Albumin/Globulin Ratio 1.4 Lipase 75 Urine RBC 5-10/hpf H Urine WBC 30-100/hpf H Ur Squamous Epith Cells 1-5 /hpf Ur Transition Epith Cell 1-5/hpf Ur Renal Epithelial Cell 1-5/hpf Urine Bacteria Many (>30) H Hyaline Casts 5-10/lpf Ur Culture Indicated? Specimen cultured Micro UA Comment Not Reportable Assessment & Plan (1) Urinary tract infection: Qualifiers: Encounter type: Hematuria presence: Indwelling urinary catheter type : Urinary tract infection type: Current visit: Yes Status: Acute (2) Delirium: Current visit: Yes Status: Acute (3) Essential hypertension: Current visit: No Status: Chronic (4) Rheumatoid arthritis: Problem details: 04/2014: Leflunomide, prednisone 07/2013 started with rheum at [facility] methotrexate 03/2013 had hemorrhagic stroke followed by ischemic stroke Prednisone, plaquenil, orencia had been on enbrel and 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 and stopped Current visit: No Status: Chronic (5) Cerebral amyloid angiopathy: Problem details: 03/31/2013 Large hemorrhagic stroke to the left temporal occipital area 2013 ischemic stroke right posterior sella Bellair hemisphere Current visit: No Status: Chronic Plan: Assessment/Plan Narrative: Acute urinary tract infection - Continue ciprofloxacin while awaiting urine culture and sensitivities Delirium - Most likely secondary to UTI though baseline is indeterminate after recent hemorrhagic CVA - Modest improvement this morning as patient is alert and speaking however still quite confused - Patient had some response to Zydis overnight. Will schedule 10 mg of Zydis at bedtime with 2.5 mg as needed for severe agitation. Avoid IM medications, will use IV if needed. - Spoke with nursing to try to keep her awake during the day to help with orientation as well as sleeping at night, may need 1:1 sitter - Continue usual melatonin and gabapentin at bedtime as well Hypertension - Very important to have blood pressure at goal which is less than 130/80 given recent hemorrhagic stroke - Restart home medications of losartan and amlodipine, will add spironolactone back if needed Rheumatoid arthritis - Continue home meds Disposition: Anticipate patient to stay in the hospital at least another night while adjusting medications and treating UTI as well as determining a safe discharge plan. Appreciate involvement from care managers.
[2018-02-05] MEDS: CIPROFLOXACIN 400 MG/200 ML PIGGYBACK 200 MG IV ×2 (09:09→20:44)
[2018-02-05] MEDS: OLANZapine 2.5 MG TABLET PO ×2 (09:17→14:48)
[2018-02-05] MEDS: LOSARTAN 50 MG TABLET PO ×2 (09:17→17:36)
[2018-02-05] MEDS: AMLODIPINE 5 MG TABLET 10 MG PO (09:18)
[2018-02-05] MEDS: LEFLUNOMIDE 20 MG TABLET PO (09:19)
[2018-02-05] MEDS: PHENYTOIN ER 100 MG CAPSULE PO (09:19)
[2018-02-05] MEDS: predniSONE 5 MG TABLET PO (09:19)
[2018-02-05] MEDS: ACETAMINOPHEN 325 MG TABLET 650 MG PO (14:48)
[2018-02-05 14:52] LABS: Add Manual Diff / Slide Review NO; Basophils Percent Auto 0.7 % (0-2); Eosinophils Percent Auto 1.2 % (2-4); Hematocrit 30.4 % (36-46); Hemoglobin 10.2 g/dL (12.0-16.0); Lymphocytes Percent Auto 11.9 % (25-40); Mean Corpuscular HGB Conc 33.6 % (30-36); Mean Corpuscular Hemoglobin 31.6 PG (26-34); Mean Corpuscular Volume 94.2 fL (80-100); Monocytes Percent Auto 12.8 % (3-14); Neutrophils Absolute Auto 8600 /uL (3000-5900); Neutrophils Percent Auto 73.4 % (50-75); Platelet Count 607 X10^3/uL (150-400); Red Blood Cell Count 3.23 X10^6/uL (4.0-5.2); Red Cell Distribution Width 14.6 % (11.6-14.8); White Blood Cell Count 11.7 X10^3/uL (4.5-11.0)
[2018-02-05 15:02] LABS: Blood Urea Nitrogen 13 mg/dL (7-17); Calcium 9.1 mg/dL (8.4-10.2); Carbon Dioxide 29 mmol/L (22-32); Chloride 96 mmol/L (98-107); Estimated Glomerular Filt Rate 54.7 mL/min (>60); Glucose 120 mg/dL (80-110); HEMOLYSIS 46 (0-50); Potassium 3.6 mmol/L (3.4-5.1); Sodium 140 mmol/L (137-145)
--- NOTE | 2018-02-05 16:00 | PC.NURSE ---
Addendum entered by Ange Sim R.N. 02/05/18 16:18: AM meds given by this automotive service writer at 09:15 time frame today. Documented under Lolita, Student Rn. Original Note: Day Shift- This AM, Pt not oriented to name, does not follow direction. Agitated this AM, got her OOB to [facility] with 2P max assist and gait belt. Pt voided and inc in brief. Spent 45mins giving pt her AM meds and tried breakfast. Pt ate 1 strawberry, the top of a muffin, 5spoonfuls of yogurt and applesauce, sips of orange juice and water. As food approached pt's mouth, pt would repeatedly say no, then food put in mouth by this automotive service writer and pt would chew and swallow without difficulty. Pt had small rest periods throughout shift of approx 20mins at a time. With intermittent calling out random words. Pt very agitated from approx [id number], Spoke with Dr. Lalo Dr to place new orders. Aware of pt spitting out medications at 1450 time, which was prn Tylenol and zyprexa. Pt calling out, no fluency in speech, repositioning frequently by 1:1 sitter in room with pt. Pt frequently attempting to get OOB, dangling legs. Pt not oriented at all, hard to redirect. Reported to evening RN.
--- NOTE | 2018-02-05 16:44 | CM.DANOTE ---
DCP/Note: Reviewed chart. Patient is a 72yr old female admitted to [facility] for delirium/UTI. PCP is Dr. Matt. Primary payor is 1)Medicare 2)[facility]. Attempted to meet with patient today. Patient asleep at time of visit and family reports that patient has had outbursts most of the day i.e. yelling and screaming. Met with both daughter's Alena and Alysa at bedside explained CM/SW role. Daughter's report that patient's behavior has increasingly been bad over the last 2 months. Patient has had 3 CVA's in the last 5yrs. Family concerned that patient continues to be on the decline mentally. Patient resides with daughter/Alena in [place]. Patient got out of [facility] approximately 10dys ago and patient currently on service with [facility]. Plus daughter's have [facility] expected to start on February 07. Family requesting patient get psychiatric and speech evaluation during this hospitalization. Family indicates that prior to the current UTI patient's behavior and mental status and declined. Notified daughter's that PAYROLL AND BENEFITS MANAGER would follow closely and let MD know of request. Will appears to be reasonable given patient's history and current outbursts. Family anticipate taking patient home when she is stable. Discussed long-term planning as well. Family aware that the time may come that patient will need permanent placement in memory care. P: PAYROLL AND BENEFITS MANAGER to follow closely and assist daughter's with safe d/c planning. Daughter believes patient does have long-term care benefit and plans to look into that as well. HEATHER Avila Discharge Planning/Care Management CM Discharge Assessment Start: 02/05/18 16:40 Freq: Status: Active Protocol: Document 02/05/18 16:40 KJS (Rec: 02/05/18 16:44 KJS [id number]) Discharge Planning Assessment Assigned Waiter HEATHER Avila DPOA/Assigned Designee Name Alysa Villeda (daughter) Contact Information Alena Langford (daughter) [phone] Advance Directives? Yes Advance Directives on File No: requested from Med Records History Provided By Family Member Medical Record Has Patient been admitted in last 30 Yes days? Comment Recently discharged from [facility]. Prior Living Arrangements Apartment/Condo Household Members children Type of transporation used prior to Relies on Others admit Independent with ADL's No Is patient alert and oriented? No Needs Assistance With Bathing Eating Grooming Meal Prep Toileting Managing Medications Home Chores / Shopping Caregiver for Another No DME Already Rented / Owned Wheelchair FWW / Walker Comment uses occassionally. is considering a white cane as major issue is the L field visual cut and says she hopes this will help others in the community be aware/when shopping etc. Comment Pending outcome of hospitalization. Anticipate home with HH resumed through [facility] and [facility]. Comment Pending Discharge Plan Home Transportation Arrangement Family Referrals Initiated Other Additional Comment Will need to order to resume HH through [facility] if patient goes home. SNF/HH Preference Patient on service with [facility] Whiteboard Updated in Patient Room with Yes name and ext. # of Waiter Review Status In Process Please Provide Date Initial DC 02/05/18 Assessment Was Performed Next Review Type Continued Stay Review
[2018-02-05] MEDS: GABAPENTIN 300 MG CAPSULE PO (17:36)
[2018-02-05] MEDS: OLANZapine ODT 10 MG TAB PO (17:37)
[2018-02-05] MEDS: MELATONIN 3 MG TABLET PO (17:37)
[2018-02-05] MEDS: LORazepam 2 MG/ML SYRINGE 0.5 MG IV (20:00)
[2018-02-05] MEDS: SODIUM CHLORIDE 0.9% FLUSH 10 ML IV (20:45)
[2018-02-06] VITALS (10 sets, daily range): BP systolic 124–152; BP diastolic 63–86; PULSE 95–114; RESP 16–18; TEMP 36.6–37.9; O2SAT 95–99
[2018-02-06] MEDS: SODIUM CHLORIDE 0.9% FLUSH 10 ML IV ×3 (06:57→20:21)
[2018-02-06] MEDS: LORazepam 2 MG/ML SYRINGE 0.5 MG IV ×2 (06:57→20:21)
--- NOTE | 2018-02-06 07:07 | PC.NURSE ---
Woke up 0650 yelling, medicated with 0.5 mg. of Lorazepam IVP. Currently 1:1 monitoring, trying to get OOB, will monitor.
--- NOTE | 2018-02-06 08:30 | PM.PN.1 ---
Subjective Time Patient Seen: 08:30 Interval history: Patient slept well for about 5 hours last night then woke and had repeated outbursts. Medicated with lorazepam because she would not take oral medication. Sleeping when I arrive this morning. When I returned about 30 minutes later she opened her eyes and reached out her hand and said it was cold. Periodic crying and calling out otherwise calm this morning. Exam Vital Signs (past 8 hours): - 02/06/18 02:00 02/06/18 02:18 02/06/18 05:48 Temperature 99.1 F 98.8 F Pulse Rate 108 H 95 H Respiratory Rate 16 17 Blood Pressure 152/63 H 146/72 H Pulse Oximetry 98 98 97 Oxygen Delivery Method Room Air Oxygen Flow Rate 0 Const General: No cooperative, comfortable and in distress (intermittently) Nutritional Appearance: average body habitus Orientation: awake and confused Limitations: behavioral limitations and physical limitations HENMT Head: normal to inspection and normocephalic Ears: hearing grossly normal bilaterally Nose: external nose normal and nares normal Face and sinus: normal facial exam and face symmetric Mouth: oral mucosae normal and lip normal Eyes General: appearance normal, both eyes and all related structures Chest Chest: normal inspection of the chest Resp Effort & Inspection: normal respiratory effort, no audible wheezes and symmetric chest movement Auscultation: clear to auscultation bilaterally Cardio Rate: regular rate Rhythm: regular rhythm GI Palpation: soft Auscultation: normal bowel sounds Skin General: no rashes or lesions noted, turgor normal (for age) and warm Neuro General: alert and awake Extrem General: no calf tenderness and edema Psych Appearance: grossly normal and well kempt Objective Labs Result Diagrams: 02/05/18 14:15 02/05/18 14:15 Labs: Laboratory Results - last 24 hr 02/05/18 02/05/18 14:15 14:15 WBC 11.7 H RBC 3.23 L Hgb 10.2 L Hct 30.4 L MCV 94.2 MCH 31.6 MCHC 33.6 RDW 14.6 Plt Count 607 H Neut % (Auto) 73.4 Lymph % (Auto) 11.9 L Mcpherson % (Auto) 12.8 Eos % (Auto) 1.2 L Baso % (Auto) 0.7 Neut # (Auto) 8600 H Sodium 140 Potassium 3.6 Chloride 96 L Carbon Dioxide 29 BUN 13 Creatinine 1.00 Estimated GFR 54.7 L BUN/Creatinine Ratio 13.0 Glucose 120 H Calcium 9.1 Assessment & Plan (1) Acute encephalopathy: Current visit: Yes Status: Acute (2) Urinary tract infection: Qualifiers: Encounter type: Hematuria presence: Indwelling urinary catheter type: Urinary tract infection type: Current visit: Yes Status: Acute (3) Essential hypertension: Current visit: No Status: Chronic (4) Rheumatoid arthritis: Problem details: 04/2014: Leflunomide, prednisone 07/2013 started with rheum at [facility] methotrexate 03/2013 had hemorrhagic stroke followed by ischemic stroke Prednisone, plaquenil, orencia had been on enbrel and 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 and stopped Current visit: No Status: Chronic (5) Intracranial hemorrhage: Problem details: with micro hemorrhages Current visit: No Status: Acute (6) Cerebral amyloid angiopathy: Problem details: 03/31/2013 Large hemorrhagic stroke to the left temporal occipital area 07/03/2013 ischemic stroke right posterior sella Bellair hemisphere Current visit: No Status: Chronic Plan: Assessment/Plan Narrative: Acute urinary tract infection - Continue ciprofloxacin until tomorrow for 3 days to treat acute cystitis. Patient seems to be improving. Urine growing e. coli which is sensitive. Delirium - Most likely secondary to UTI though baseline is indeterminate after recent hemorrhagic CVA, sensorium had some clearning as the day progressed after morning dose of lorazepam, did not require additional medications - Patient had some response to Olanzapine overnight however oral medications are problematic at this time. Appreciate Dr. Guevara's recommendations for IV haldol which can be transitioned to oral later. 0.5 mg twice daily with 0.5 mg as needed q8h. - Continue usual melatonin and gabapentin at bedtime as well if she will take these Hypertension - Very important to have blood pressure at goal which is less than 130/80 given recent hemorrhagic stroke, pressure have been variable, will try to use leg cuff to get more stable readings. - Restart home medications of losartan and amlodipine, will add spironolactone back if needed Rheumatoid arthritis - Continue home meds - chronic prednisone use, will make sure her protonix is IV so she is able to get this medication Pain? - possible sources are her pre-existing sciatica, rheumatoid arthritis, skin breakdown. Will try to get some topicals to try. DVT prophylaxis: contraindicated with her recent hemorrhagic stroke CODE status: full code, will discuss further with family as we discuss goals of care Disposition: Anticipate patient to stay in the hospital at least another night or 2 while adjusting medications and treating UTI as well as determining a safe discharge plan. Appreciate involvement from care managers.
[2018-02-06] MEDS: CIPROFLOXACIN 400 MG/200 ML PIGGYBACK 200 MG IV ×2 (09:35→20:21)
--- NOTE | 2018-02-06 09:58 | OT.IP.EVAL ---
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) Encephalopathy, unspecified (02/04/18) Essential (primary) hypertension (02/04/18) Nontraumatic intracranial hemorrhage, unspecified (02/04/18) Cerebral amyloid angiopathy (02/04/18) Rheumatoid arthritis, unspecified (02/04/18) Urinary tract infection, site not specified (02/04/18) Disorientation, unspecified (02/04/18) Past Medical History (Last Reviewed 02/04/18 @ 20:58 by Caitlyn May DO) Campylobacter diarrhea (Resolved) Essential hypertension (Chronic 04/04/11) Rheumatoid arthritis (Chronic) Intracranial hemorrhage (Acute 03/20/13) Cerebral amyloid angiopathy (Chronic 04/25/13) Sensorineural hearing loss (SNHL) of left ear (Chronic) Anxiety (Chronic 07/24/13) Sleep apnea (Chronic 07/28/13) Mixed stress and urge urinary incontinence (Chronic 01/12/14) 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) Chronic kidney disease (CKD) stage G3a/A2, moderately decreased glomerular filtration rate (GFR) between 45-59 mL/min/1.73 square meter and albuminuria creatinine ratio between 30-299 mg/g (Chronic 11/18/14) Asthma due to seasonal allergies (Chronic 06/04/15) Eczema (Chronic 03/08/16) Chronic disease anemia (Chronic 07/04/17) Anxiety (Chronic ~1999) Cataract (Chronic ~1998) Eczema (Chronic) Fecal incontinence (Chronic) Hearing loss (Chronic ~1998) Hyperlipidemia (Chronic ~1998) Hypertension (Chronic) Rheumatoid arthritis (Chronic ~1979) Seasonal allergies (Chronic ~2012) Urinary incontinence (Chronic) Vision abnormalities (Chronic) Body mass index (BMI) of 25.0 to 29.9 (Resolved 04/23/14) Chickenpox (Resolved ~1951) Ischemic stroke (Resolved ~2013) Measles (Resolved ~1951) Mumps (Resolved ~1951) Rubella (Resolved ~1951) Surgical History (Last Reviewed 02/04/18 @ 20:58 by Caitlyn May DO) History of ectopic (Resolved ~1971) History of cataract removal with insertion of prosthetic lens (~2015) History of third molar tooth extraction (~1994) History of tonsillectomy (~1952) S/P total abdominal hysterectomy and bilateral salpingo-oophorectomy (~1973) Status post appendectomy (~1973) Status post bunionectomy (~2004) Status post cholecystectomy (~1994) Occupational Therapy Inpatient Evaluation/Re-Eval M1 PT/OT-IP Prior Functional Status Start: 02/06/18 14:08 Freq: NEEDED Status: Active Protocol: Document 02/06/18 09:58 PJMargaret (Rec: 02/06/18 14:43 PJM [id number]) Medical Review Prior Functional Status Medical History Reviewed Yes Diet/Fluid Consistency Regular Communication 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 Mobility and Gait Pt could walk with handhold assist of 1-2 persons when alert; sometimes used FWW but confused by it's use per daughter, Alysa (POA). Pt was able to negotiate 1 step down to sunken living room using handrail with CGA per lauren. Activities of Daily Living and IADL's Pt had poor oral intake at home since she was d/c'd from [facility] stroke rehab on 01/26/2018. She will occasionally drink from cup with straw or eat a cracker. Family feeding pt if able, but pt resists this. Pt required max to total assist with all grooming, dressing, 2 person assist by daughters for bathing on shower seat. Pt does indicate when she has to go to bathroom but sometimes does not make it in time and wears incontinent brief. Pt uses bedside commode as bathroom set up appears to disorient pt per daughter. Prior Functional Level (Other details) 2 daughters have been caring for pt at home over past 10 days, but pt has had increasing agitation and sleep disruption, waking up at 2 in the morning and not going back to sleep. Pt appears to be hallucinating at times per daughter. Social History Household Members children Living Arrangements Apartment/Condo Number of Floors (Floors) One Floor Number of Stairs To Enter/Railing? no stairs to enter, one step down with rail to sunken living room Home Environment Standard Height Toilet Walk in Shower Home Equipment Front Wheel Walker Manual Wheelchair Bedside Commode Shower Seat with Backrest Hand Held Shower Long Handled Sponge Grab Bars In Shower Employment Status Retired Additional Social History Comment Pt's daughter, Alena and Alena's S.O. live with pt. Second daughter, Alysa, is POA and normally lives in [place]. Alysa has been staying to assist with pt for last 10 days since d/c from [facility] . Pt has power bed without rails at home. M2 OT-IP Current Condition Start: 02/06/18 14:08 Freq: Status: Active Protocol: Document 02/06/18 09:58 PJM (Rec: 02/06/18 14:43 PJ [id number]) Occupational Therapy Current Condition Current Condition Evaluation Date 02/06/18 Treatment Diagnosis decreased cognition, self care , mobility with agitation Diagnosis Onset Date 02/04/18 Post Operative Precautions Other Precautions fall risk, agitation, bed alarm M3 OT- IP Subjective and Pain Start: 02/06/18 14:08 Freq: Status: Active Protocol: Document 02/06/18 09:58 PJM (Rec: 02/06/18 14:43 PJ [id number]) OT- Subjective Occupational Therapy Visit Type Type Initial Evaluation Visit Start Time 09:20 Visit Stop Time 09:58 Total Visit Minutes 38 Notes Pt's daughter/POA Alysa here this session to provide home information. Occupational Therapy Visit Comments Patient/Caregiver Goals pt unable to verbalize goal due to cognitive status, aphasia OT Pain Assessment FLACC Pain Scale Face Occasional grimace/frown Legs Uneasy, restless, tense Activity Squirming,shifting Cry No cry (awake or asleep) Consolability Reassurable with touch FLACC Total 4 M4 OT- IP ADL's Start: 02/06/18 14:08 Freq: Status: Active Protocol: Document 02/06/18 09:58 PJM (Rec: 02/06/18 14:43 [facility] [id number]) OT [id number] General Evaluation Self-Feeding Ability Total Assistance Comments OT Self-Feeding Comments Pt refusing cup or straw brought to her lips by daughter. She licks water off her lips placed with swab. OT ADL-Grooming General Evaluation Grooming Ability Total Assistance Comments OT Grooming Comments Pt does not purposefully grasp washcloth this session. She resists having her face washed ; pushes washcloth away. OT ADL-Oral Care General Eval Oral Care Ability Total Assistance Comments Oral Care Comments Does not open mouth to allow swabbing. OT ADL-Dressing General Eval Upper Body Dressing Ability Total Assistance OT ADL-Toileting General Evaluation Toileting Ability Total Assistance Areas Needing Assistance Manage Clothing Perform Perineal Hygiene Devices Toileting Assistive Devices Commode OT ADL-Bathing Bathing Type Bathing Type Bed Bath General Evaluation Bathing Ability Total Assistance M5 OT- IP IADL's Start: 02/06/18 14:08 Freq: Status: Active Protocol: Document 02/06/18 09:58 PJM (Rec: 02/06/18 14:43 PJM [id number]) OT-Instrumental Activities of Daily Living Deficits IADL Deficits Identified Deficits Home Safety Awareness Awareness of Need for Assistance at Home Decreased Awareness Ability to Problem Solve Emergency Unable to Problem Solve Situations Medication Management Medication Management Caregiver Administers Money Management Money Management Caregiver Provides Assistance Meal Preparation Meal Preparation Caregiver Provides Assist Bond Manager Bond Manager Caregiver Provides Assist Driving Driving Caregiver Provides Assist M6 OT- IP Functional Cognition Start: 02/06/18 14:08 Freq: Status: Active Protocol: Document 02/06/18 09:58 PJM (Rec: 02/06/18 14:43 PJM [id number]) Cognitive Factors Limiting Selfcare Function Cognitive Ability Level of Alertness Confusional State Lethargic Attention Span Ability Unable to Focus Unable to Sustain Attention Memory Description Immediate Impaired Executive Function Ability Unable to Hold Focus Cognitive Comments Cognitive Assessment Comments Pt does not follow any commands this session or participate with grooming after washcloth placed on hand . She vocalizes in intelligible single words and short phrases/ sentences that are out of context/confused with some occasional jargon noted. Per daughter, pt has recognized some friends who have visited in the past week. OT- Vision and Hearing OT- Hearing Assessment OT- Hearing Assessment WFL OT- Vision Assessment Visual Attentiveness Impaired Occular Pursuits Impaired Horizontal Visual Nix Impaired Visual Spacial Neglect Left Vision Assessment Comments Per daughter, pt has R field cut and R neglect from old stroke with new L neglect from most recent stroke. Pt unable to be formally assessed due to cognitive status and receptive aphasia. Pt keeping eyes closed most of this session. Opens eyes momentarily to tactile stim. M7 OT- IP Mobility and Balance Start: 02/06/18 14:08 Freq: Status: Active Protocol: Document 02/06/18 09:58 PJM (Rec: 02/06/18 14:43 PJM [id number]) OT-Transfer Assessment Comments Mobility Comments mobility assessment not attempted this session due to decreased MARCELINO OT- Gait Assessment Comments Gait Ability Comments mobility assessment not attempted this session deu to decreased MARCELINO OT- Balance Assessment Comments Other Balance Tests/Deviations/Treatment mobility assessment not : attempted this session deu to decreased MARCELINO M8 OT- IP Objective Assessments Start: 02/06/18 14:08 Freq: Status: Active Protocol: Document 02/06/18 09:58 PJM (Rec: 02/06/18 14:43 PJ [id number]) OT Gross Range of Motion Upper Extremity Range of Motion ROM Impairments Pt tends to keep B hand tightly fisted on bed clothes; picks at coban on R wrist IV at times OT Strength Comments Strength Comments appears to have antigravity strength in BUE by observation with no obvious unilateral weakness OT- Coordination Assessment Comments Coordination Comments has at least mass grasp and release in B hands OT-Muscle Tone Assessment Comments Muscle Tone Comments appears to have isolated finger control in B hands by observation OT Sensation Assessment Comments Summary Comments unable to assess Edema Edema Absent M9 OT- IP Assessment and Plan Start: 02/06/18 14:08 Freq: Status: Active Protocol: Document 02/06/18 09:58 PJM (Rec: 02/06/18 14:43 PJ [id number]) OT Summary Assessment and Plan Potential Rehabilitation Potential Poor Analytic Complexity at Evaluation Moderate Summary OT Impairments Pain Range of Motion Strength Balance Coordination Functional Cognition Functional Mobility Self-Feeding Grooming Dressing Toileting Bathing Toilet Transfers Shower Transfers Assessment Summary Moderate complexity OT assessment completed due to complex medical history and behavioral issues. Pt is severely impaired receptive and expressive communication with no command following this session and total assist with all self care skills at present. Pt does not have obvious focal sensorimotor deficits and moves all 4 extremites spontaneously in bed. Mobility not yet assessed due to lethargy and agitation with stimulation this session . Daughters would like to take pt home with hired acute care surgeon assist but are also considering nursing home memory care unit. Psychiatry consult pending for recommendations re: meds for improving agitation and sleep cycle. Will provide trial of OT services here to see if pt's ability to participate in self care tasks improves. Goals Self-Feeding Goal Minimal Assistance Grooming Goal Moderate Assistance Dressing Goal Moderate Assistance Toilet Transfer Goal Minimal Assistance Bedside Commode Days to Meet Goals 5 Frequency of Treatment Frequency Of Treatment Once a Day Treatment Plan OT Treatment Plan ADL Training Functional Cognition Training Functional Mobility Patient/Family Education Discharge Planning Discharge Recommendations OT Discharge Recommendations Home with 24/7 Assist Other Discharge Recommendations vs Memory Care Unit; if pt d/c 's home, family will need additional paid caregiver assist to manage her care, especially at night
[2018-02-06] MEDS: ACETAMINOPHEN 325 MG TABLET 650 MG PO ×2 (11:42→17:42)
--- NOTE | 2018-02-06 15:01 | PC.NURSE ---
day shift pt was vocal and screaming this AM however repostioned in bed and she was calm until around noon. She was able to eat a bowl of soup with her daughter Alena feeding her. Pt would not take any applesauce or pudding with no medications in it this AM. later did take tylenol crushed in applesauce however she did not want anything else. Daughter Alena said that what she has done is when pt has her mouth open to cry or scream to put spoon in and get the food in. Pt with minimal urine output however minimal PO intake as well.
--- NOTE | 2018-02-06 16:13 | PT.IPTN ---
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 family in room and requested to let pt sleep as pt has been agitated and did not sleep well last night. talked to family regarding pt' s PLOF and d/c plans and stated that they can provided 24/7 assistance to pt. will f/ u tomorrow.
[2018-02-06] MEDS: GABAPENTIN 300 MG CAPSULE PO (17:42)
[2018-02-07] VITALS (10 sets, daily range): BP systolic 116–137; BP diastolic 57–95; PULSE 99–115; RESP 15–18; TEMP 36.5–37.7; O2SAT 95–98
[2018-02-07] MEDS: SODIUM CHLORIDE 0.9% FLUSH 10 ML IV ×3 (04:14→19:22)
[2018-02-07] MEDS: LORazepam 2 MG/ML SYRINGE 0.5 MG IV (04:15)
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
[2018-02-07] MEDS: AMLODIPINE 5 MG TABLET 10 MG PO (09:50)
[2018-02-07] MEDS: LEFLUNOMIDE 20 MG TABLET PO (09:50)
--- NOTE | 2018-02-07 10:29 | PT.IPTN ---
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) Encephalopathy, unspecified (02/04/18) Essential (primary) hypertension (02/04/18) Nontraumatic intracranial hemorrhage, unspecified (02/04/18) Cerebral amyloid angiopathy (02/04/18) Rheumatoid arthritis, unspecified (02/04/18) Urinary tract infection, site not specified (02/04/18) Disorientation, unspecified (02/04/18) Abnormal weight loss (02/04/18) Physical Therapy Treatment Note M3 PT-IP Subjective Start: 02/06/18 16:12 Freq: NEEDED Status: Active Protocol: Document 02/07/18 10:27 AB (Rec: 02/07/18 10:29 AB [id number]) Subjective Physical Therapy Visit Type Notes checked on pt this morning and per nurse, pt just started to sleep and to have PT eval later and have pt sleep. checked on pt again and nurse stated that they will start IV on pt and wants pt to be as calm as possible and not do get pt up. will f/u later.
[2018-02-07] MEDS: POTASSIUM CHLORIDE 20 MEQ TAB 40 MEQ PO (10:48)
[2018-02-07] MEDS: LOSARTAN 50 MG TABLET 100 MG PO (10:48)
[2018-02-07] MEDS: predniSONE 5 MG TABLET PO (10:48)
[2018-02-07] MEDS: CIPROFLOXACIN 400 MG/200 ML PIGGYBACK 200 MG IV (11:15)
[2018-02-07] MEDS: PANTOPRAZOLE 40 MG VIAL IV (11:16)
[2018-02-07] MEDS: ACETAMINOPHEN 325 MG TABLET 650 MG PO ×2 (11:17→17:09)
[2018-02-07] MEDS: SODIUM CHLORIDE 0.9% IV (13:19)
[2018-02-07] MEDS: PHENYTOIN IV (13:19)
--- NOTE | 2018-02-07 13:26 | ST.IPSLE ---
Care Team Visit Care Team Role Provider Type Jesus Alberto Guevaar DO Other Providers Physician Specialty: Psychiatry Address: [address] [place], [address] Email: [email or web address] Donald Trinidad DO Emergency Provider Physician Specialty: Emergency Medicine Address: [address] [place] [address], [id number] Email: Ailin Matt DO Attending Provider Physician Family Provider Primary Care Provider Specialty: Family Practice Address: [address] [place] [address], [id number] Email: [email or web address] Caitlyn May DO Admit Provider Physician Other Providers Specialty: Family Practice Address: [address] [place] [address], [address] Email: 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) Encephalopathy, unspecified (02/04/18) Essential (primary) hypertension (02/04/18) Nontraumatic intracranial hemorrhage, unspecified (02/04/18) Cerebral amyloid angiopathy (02/04/18) Rheumatoid arthritis, unspecified (02/04/18) Urinary tract infection, site not specified (02/04/18) Disorientation, unspecified (02/04/18) Abnormal weight loss (02/04/18) Past Medical History (Last Reviewed 02/04/18 @ 20:58 by Caitlyn May DO) Campylobacter diarrhea (Resolved Medical) Essential hypertension (Chronic Medical 04/04/11) Rheumatoid arthritis (Chronic Medical) 04/2014: Leflunomide, prednisone 07/2013 started with rheum at [facility] methotrexate 03/2013 had hemorrhagic stroke followed by ischemic stroke Prednisone, plaquenil, orencia had been on enbrel and 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 and stopped Intracranial hemorrhage (Acute Medical 03/20/13) with micro hemorrhages Cerebral amyloid angiopathy (Chronic Medical 04/25/13) 03/31/2013 Large hemorrhagic stroke to the left temporal occipital area 07/03/2013 ischemic stroke right posterior sella Bellair hemisphere Sensorineural hearing loss (SNHL) of left ear (Chronic Medical) Anxiety (Chronic Medical 07/24/13) Sleep apnea (Chronic Medical 07/28/13) Mixed stress and urge urinary incontinence (Chronic Medical 01/12/14) Mechanical low back pain (Chronic Medical 06/11/14) Chronic kidney disease (CKD) stage G3a/A2, moderately decreased glomerular filtration rate (GFR) between 45-59 mL/min/1.73 square meter and albuminuria creatinine ratio between 30-299 mg/g (Chronic Medical 11/18/14) Asthma due to seasonal allergies (Chronic Medical 06/04/15) Eczema (Chronic Medical 03/08/16) Chronic disease anemia (Chronic Medical 07/04/17) Anxiety (Chronic Medical ~1999) Cataract (Chronic Medical ~1998) Eczema (Chronic Medical) Fecal incontinence (Chronic Medical) Hearing loss (Chronic Medical ~1998) Hyperlipidemia (Chronic Medical ~1998) Hypertension (Chronic Medical) Rheumatoid arthritis (Chronic Medical ~1979) Seasonal allergies (Chronic Medical ~2012) Urinary incontinence (Chronic Medical) Vision abnormalities (Chronic Medical) Body mass index (BMI) of 25.0 to 29.9 (Resolved Medical 04/23/14) Chickenpox (Resolved Medical ~1951) Ischemic stroke (Resolved Medical ~2013) Measles (Resolved Medical ~1951) Mumps (Resolved Medical ~1951) Rubella (Resolved Medical ~1951) Speech-Language Pathology Speech/Language Eval ASSISTANT GROCERY STORE MANAGER Language Evaluation Start: 02/07/18 12:58 Freq: Status: Active Protocol: Document 02/07/18 12:59 [facility] (Rec: 02/07/18 13:25 [facility] [id number]) Language Evaluation Session Time Visit Start Time 11:50 Visit Stop Time 12:20 Total Visit Minutes 30 Next Note Type Next Note Type Treatment Note Referral Referring Physician Dr Matt Reason for Referral Post-CVA, Expressive and Receptive Aphasia Language Evaluation Assessment Type Informal language evaulation with family present for education Past Medical History Patient History Patient is a 72-year-old female with cerebral amyloid angiopathy, rheumatoid arthritis, hypertension, chronic kidney disease, 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 She was brought to [facility] on 02/04/18. She was recently discharged from [facility] after her second hemorrhagic CVA with significant deficits (aphasia primarily though right and left-sided neglect). After being discharged home, she became progressively more agitated and stopped eating. Her adult daughters have been her primary caregivers and provided patient's background history. They reported that the patient began to indicate stomach pain after she stopped eating, and she then refused to take her medication. SHe she was brought to [facility], she presented with nausea as well as diarrhea though no fevers or vomiting, and a UTI. She has a very extensive past medical history: Ampylobacter diarrhea ( Resolved) Essential hypertension ( Chronic 04/04/11) Rheumatoid arthritis (Chronic) Intracranial hemorrhage (Acute 03/20/13) Cerebral amyloid angiopathy ( Chronic 04/25/13) Sensorineural hearing loss ( SNHL) of left ear (Chronic) Anxiety (Chronic 07/24/13) Sleep apnea (Chronic 07/28/13) Mixed stress and urge urinary incontinence (Chronic 01/12/14 ) Mechanical low back pain ( Chronic 06/11/14) Chronic kidney disease (CKD) stage G3a/A2, (Chronic ) Asthma due to seasonal allergies (Chronic 06/04/15) Eczema (Chronic 03/08/16) Chronic disease anemia ( Chronic 07/04/17) Anxiety (Chronic ~1999) Cataract (Chronic ~1998) Eczema (Chronic) Fecal incontinence (Chronic) Hearing loss (Chronic ~1998) Hyperlipidemia (Chronic ~1998) Hypertension (Chronic) Rheumatoid arthritis (Chronic ~1979) Seasonal allergies (Chronic ~ 2012) Urinary incontinence (Chronic) Vision abnormalities (Chronic) Body mass index (BMI) of 25.0 to 29.9 (Resolved 04/23/14) Chickenpox (Resolved ~1951) Ischemic stroke (Resolved ~ 2013) Measles (Resolved ~1951) Mumps (Resolved ~1951) Rubella (Resolved ~1951) Since admission to [facility], patient has presented with delirium and agitation. She was evaluated by Dr Guevraa on 02/07/18. Please see report for full details. Therapies consulted. Initial speech therapy attempt on 02/06/18 was unsuccessful due to patient's high agitation and inability to participate. Hearing Hearing Level Impaired Auditory History Hx of sensorineural hearing loss, though family unable to determine full affects of hearing loss due to significant expressive and receptive aphasia. Vision Vision Status Impaired Comments Visual field neglect, secondary to CVAs [place] Language Language(s) Spoken in the Home [place] Previous Therapy History of Therapy History of speech therapy, though full details unknown at this time Oral Motor Examination Oral Motor Exam Completed No: Patient unable to participate Subjective Subjective Patient awake sitting up in chair with daughter present to assist patient in eating lunch. Patient immediately stated, Lizeth, my name is Aziza upon ST arrival. Observed intermittent periods of clear speech throughout the evaluation. Observed agitation and confusion throughout the session, but patient able to calm down with direct verbal cues (ex: you are safe, mom. It's time to eat lunch. etc). 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 EXPRESSIVE LANGUAGE: Severe expressive aphasia. At times, patient was able to express direct, personal information ( Ex: Charles, my name is Aziza. [place] Where are we going? Thank you.) indicating ability to create intelligible language. However, unable to repeat phrase when requested. Reflexive language mildly in tact. Conversational speech remains garbled and off topic. Patient was also attempting to discuss events from the past, indicating that she believed she was in a different place/time, indicating disorientation. Unable to complete naming task or participate in further expressive language testing. RECEPTIVE LANGUAGE: Severe receptive aphasia. Occasional ability to answer yes/no questions correctly, according to situation, but not consistently. Unable to follow 1-step directions consistently. Unable to participate in higher-level receptive langauge tasks for evaluation due to severity of aphasia as well as high distraction from agitation. However, able to clearly calm down with simple, soothing verbal statements from ASSISTANT GROC[employer] STORE MANAGER and daughter, indicating mild receptive language ability. Unable to rule out patient's ability to comprehend verbal information, or her response to tone of voice as soothing. ASSISTANT GROCERY STORE MANAGER provided extensive education to family regarding how a CVA can impact language, various aspects of expressive and receptive langauge, and the rehabilitation process post-CVA. ASSISTANT GROCERY STORE MANAGER explained effects of receptive aphasia on patients, and how it can be very confusing and distressing to the patient. ASSISTANT GROCERY STORE MANAGER provided written instructions for the family targeting 1) effective communication 2) simple langauge 3) yes/no questions 4 ) important information to assist the patient in expressing such as hunger/ thirst, pain, need for the bathroom, medication managment , etc 5) automatic speech tasks. ASSISTANT GROCERY STORE MANAGER explained these points in length with the family, who verbalized understanding. ASSISTANT GROCERY STORE MANAGER recommended beginning therapy targeting receptive language skills, but using visual cues and establishing consistent yes/no answers. ASSISTANT GROCERY STORE MANAGER requested that the family take specific pictures of items/concepts in the patient's home, print them out, and bring them to the hospital. Have the patient hold these items in her hand in order to demonstrate to staff and family what her visual field allows. From there, use for assistance for yes/no questions (ex: are you thirsty? - picture of glass of water from home; do you need to use the bathroom? - picture of toilet in patient's home, etc). Family verbalized understanding and stated that they would begin working on this. ASSISTANT GROCERY STORE MANAGER will follow up for further intervention. Recommendations Recommendations Initiate expressive and receptive lanuage therapy to assist patient's ability to successfully express wants and needs with caretakers. Ongoing caregiver education in preparation for discharge. Equip family with information needed for continued intervention at home. Treatment Goals Short Term Goals 1. Patient will successful answer yes/no in 8/10 attempts with use of visual aid in order to improve receptive language skills needed for communication. 2. Patient will follow simple 1-step directions with visual aids in 7/10 attempts in order to improve receptive language skills needed for communication. 3. Patient will complete automatic speech tasks in order to improve communication . 4. Family will receive education for home exercise program to continue rehabilitation process outside of therapy. Student Accounts Coordinator Goals 1. Patient will establish consistent yes/no ability in order to demonstrate improved receptive language skills. 2. Patient will participate in expressive and receptive language therapy in order to improve ability to express her wants and needs to family and hospital staff.
--- NOTE | 2018-02-07 13:30 | PT.IIE ---
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) Encephalopathy, unspecified (02/04/18) Essential (primary) hypertension (02/04/18) Nontraumatic intracranial hemorrhage, unspecified (02/04/18) Cerebral amyloid angiopathy (02/04/18) Rheumatoid arthritis, unspecified (02/04/18) Urinary tract infection, site not specified (02/04/18) Disorientation, unspecified (02/04/18) Abnormal weight loss (02/04/18) Surgical History (Last Reviewed 02/04/18 @ 20:58 by Caitlyn May DO) History of ectopic (Resolved ~1971) History of cataract removal with insertion of prosthetic lens (~2015) History of third molar tooth extraction (~1994) History of tonsillectomy (~1951) S/P total abdominal hysterectomy and bilateral salpingo-oophorectomy (~1973) Status post appendectomy (~1973) Status post bunionectomy (~2004) Status post cholecystectomy (~1994) Medical History (Last Reviewed 02/04/18 @ 20:58 by Caitlyn May DO) Campylobacter diarrhea (Resolved) Essential hypertension (Chronic 04/04/11) Rheumatoid arthritis (Chronic) Intracranial hemorrhage (Acute 03/20/13) Cerebral amyloid angiopathy (Chronic 04/25/13) Sensorineural hearing loss (SNHL) of left ear (Chronic) Anxiety (Chronic 07/24/13) Sleep apnea (Chronic 07/28/13) Mixed stress and urge urinary incontinence (Chronic 01/12/14) 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) Chronic kidney disease (CKD) stage G3a/A2, moderately decreased glomerular filtration rate (GFR) between 45-59 mL/min/1.73 square meter and albuminuria creatinine ratio between 30-299 mg/g (Chronic 11/18/14) Asthma due to seasonal allergies (Chronic 06/04/15) Eczema (Chronic 03/08/16) Chronic disease anemia (Chronic 07/04/17) Anxiety (Chronic ~1999) Cataract (Chronic ~1998) Eczema (Chronic) Fecal incontinence (Chronic) Hearing loss (Chronic ~1998) Hyperlipidemia (Chronic ~1998) Hypertension (Chronic) Rheumatoid arthritis (Chronic ~1979) Seasonal allergies (Chronic ~2012) Urinary incontinence (Chronic) Vision abnormalities (Chronic) Body mass index (BMI) of 25.0 to 29.9 (Resolved 04/23/14) Chickenpox (Resolved ~1951) Ischemic stroke (Resolved ~2013) Measles (Resolved ~1951) Mumps (Resolved ~1951) Rubella (Resolved ~1951) Physical Therapy Inpatient Evaluation/Re-Eval M1 PT/OT-IP Prior Functional Status Start: 02/06/18 14:08 Freq: NEEDED Status: Active Protocol: Document 02/07/18 13:30 AB (Rec: 02/07/18 16:07 AB [id number]) Medical Review Prior Functional Status Medical History Reviewed Yes Diet/Fluid Consistency Regular Communication Per OT: 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 Mobility and Gait daughters stated that pt usually requires one person assist with mobility and ambulation NATURAL RESOURCE OFFICER but at time will require 2 person assist depending on level of cognition and pain. stated that pt occasionally able to transfer by herself. Activities of Daily Living and IADL's Pt had poor oral intake at home since she was d/c'd from [facility] stroke rehab on . She will occasionally drink from cup with straw or eat a cracker. Family feeding pt if able, but pt resists this. Pt required max to total assist with all grooming, dressing, 2 person assist by daughters for bathing on shower seat. Pt does indicate when she has to go to bathroom but sometimes does not make it in time and wears incontinent brief. Pt uses bedside commode as bathroom set up appears to disorient pt per daughter. Social History Household Members children Living Arrangements Apartment/Condo Number of Floors (Floors) One Floor Number of Stairs To Enter/Railing? no stairs to enter, one step down with rail to sunken living room Home Environment Standard Height Toilet Walk in Shower Home Equipment Front Wheel Walker Manual Wheelchair Bedside Commode Shower Seat with Backrest Hand Held Shower Long Handled Sponge Grab Bars In Shower Employment Status Retired Additional Social History Comment Pt's daughter, Alena and Alena's S.O. live with pt. Alysa Slaughter, is POA and normally lives in [place]. Alysa has been staying to assist with pt for las t 10 days since d/c from [facility] . Pt has power bed without rails at home. M2 PT-IP Current Condition Start: 02/06/18 16:12 Freq: NEEDED Status: Active Protocol: Document 02/07/18 13:30 AB (Rec: 02/07/18 16:07 AB [id number]) Physical Therapy Current Condition Current Condition Evaluation Date 02/07/18 Treatment Diagnosis delirium, UTI; gen. weakness Onset Date 02/04/18 Precautions Other Precautions fall risk, agitation, bed alarm M3 PT-IP Subjective Start: 02/06/18 16:12 Freq: NEEDED Status: Active Protocol: Document 02/07/18 13:30 AB (Rec: 02/07/18 16:07 AB [id number]) Subjective Physical Therapy Visit Type Type Initial Evaluation Visit Start Time 01:30 Visit Stop Time 01:50 Total Visit Minutes 20 Notes daughter present and assisted with mobility Number of CESSATION SYSTEMS OUTREACH SPECIALIST Visits 0 Physical Therapy Visit Comments Patient Comments pt has aphasia and unable to clearly communicate needs and comprehend instructions Therapy Pain Assessment Pain When Pain Assessed During Mobility Pain Present Pain Present Pain Reported Location Generalized Scale Used c/o pain but location not stated; dght stated from RA Pain Behaviors Calling Out Guarding Restlessness M4 PT-IP Mobility and Gait Start: 02/06/18 16:12 Freq: NEEDED Status: Active Protocol: Document 02/07/18 13:30 AB (Rec: 02/07/18 16:07 AB [id number]) PT-Bed Mobility Assessment Sit to Supine Sit to Supine Maximum Assistance 1 Person Assistance 2 Person Assistance PT-Transfer Assessment Sit to and From Stand Sit to and from Stand Maximum Assistance 2 Person Assistance Equipment Transfer Assistive Device Gait Belt Transfers Transfer Destination Bed Transfer Technique pt ambulated from chair to bed Gait Assessment Gait Gait Assistance Required: Maximum Assistance 1 Person Assist 2 Person Assist Distance (Feet) 15 Able to Maintain Weight Bearing Status Yes During Gait Assistive Devices Assistive Device Gait Belt Gait Deviations General Gait Pattern Decreased Stride Length Decreased Feet Clearance Factors Limiting Gait Function Factors Limiting Gait Function Decreased Activity Tolerance Decreased Strength Difficulty Following Directions Incoordination Pain Poor Balance Poor Safety Awareness Comments Gait Comments pt requires increase verbal/ tactile/visual cues for instructions. pt with difficulty with following instructions . daughter present during tx and provided second assist to pt. pt requires NATURAL RESOURCE OFFICER max x 2 and max cues for ambulated chair to bed ~ 15 ft. PT-Balance Assessment Sitting Balance and Reactions Static Sitting Balance Ability Fair Dynamic Sitting Balance Ability Fair Standing Balance and Reactions Static Standing Balance Ability Poor Dynamic Standing Balance Ability Poor M5 PT-IP Objective Assessments Start: 02/06/18 16:12 Freq: NEEDED Status: Active Protocol: Document 02/07/18 13:30 AB (Rec: 02/07/18 16:07 AB [id number]) Orientation Orientation/Cognition Level of Alertness Alert Language Function Ability Expressive Aphagia Receptive Aphagia Word Finding Difficulties Safety Awareness Decreased Safety Awareness Memory Description Short Term Impaired Intermediate Impaired M6 PT-IP Treatment Start: 02/06/18 16:12 Freq: NEEDED Status: Active Protocol: Document 02/07/18 13:30 AB (Rec: 02/07/18 16:07 AB [id number]) Physical Therapy Treatment Other Treatments Other Treatment Performed educated pt's daughter regarding PT POC and pt's current mobility and safety concerns M7 PT-IP Assessment and Plan Start: 02/06/18 16:12 Freq: NEEDED Status: Active Protocol: Document 02/07/18 13:30 AB (Rec: 02/07/18 16:07 AB [id number]) PT Summary Assessment and Plan Potential Rehabilitation Potential Fair Status of Condition at Evaluation Evolving Summary Impairments Pain Strength Balance Coordination Sensation Tone Cognition Bed Mobility Transfers Gait Activity Tolerance Assessment Summary pt requiring 2 person assist with mobility and max cues with all tasks. Pt has 24/7 assist at home and if family can provide appropriate assistance, pt may go home when stable but at this time may benefit from SNF. will c/ o to assess. Goals Bed Mobility Goal Minimal Assistance Transfer Goal Minimal Assistance Gait Goal Minimal Assistance Gait Distance 50 Days to Meet Goals 5 Frequency of Treatment Frequency Of Treatment Once a Day Treatment Plan Physical Therapy Treatment Plan Bed Mobility Training Transfer Training Gait Training Therapeutic Exercise Balance Retraining Discharge Planning Neuromuscular Re-ed Coordination Retraining Manual Therapy Recommendations To Nursing Amount of Assist Needed 2 Person Assist Discharge Recommendations PT Discharge Recommendations Home with 24/7 Assist Home Health SNF Rehab
--- NOTE | 2018-02-07 14:27 | OT.IP.TRT ---
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) Encephalopathy, unspecified (02/04/18) Essential (primary) hypertension (02/04/18) Nontraumatic intracranial hemorrhage, unspecified (02/04/18) Cerebral amyloid angiopathy (02/04/18) Rheumatoid arthritis, unspecified (02/04/18) Urinary tract infection, site not specified (02/04/18) Disorientation, unspecified (02/04/18) Abnormal weight loss (02/04/18) Occupational Therapy Treatment Note M2 OT-IP Current Condition Start: 02/06/18 14:08 Freq: Status: Active Protocol: Document 02/06/18 09:58 PJM (Rec: 02/06/18 14:43 PJ [id number]) Occupational Therapy Current Condition Current Condition Evaluation Date 02/06/18 Treatment Diagnosis decreased cognition, self care , mobility with agitation Diagnosis Onset Date 02/04/18 Post Operative Precautions Other Precautions fall risk, agitation, bed alarm M3 OT- IP Subjective and Pain Start: 02/06/18 14:08 Freq: Status: Active Protocol: Document 02/07/18 14:27 PJM (Rec: 02/07/18 16:46 PJ [id number]) OT- Subjective Occupational Therapy Visit Type Type Treatment Note Visit Start Time 13:52 Visit Stop Time 14:27 Total Visit Minutes 35 Notes Pt's daughters, Alena and Alysa here this session. Occupational Therapy Visit Comments Patient Comments Pt verbalizing in sentences today, unrelated to context, with very occasional jargon. Pt more verbal than yesterday. Patient/Caregiver Goals Daughters would like to care for pt at home with some paid caregiver assist for 12 hours overnight 8PM-8AM OT Pain Assessment Pain When Pain Assessed After Treatment FLACC Pain Scale Face Occasional grimace/frown Legs Kicking or drawn up Activity Squirming,shifting Cry Moans/whimpers/complains Consolability Reassurable with touch FLACC Total 6 M4 OT- IP ADL's Start: 02/06/18 14:08 Freq: Status: Active Protocol: Document 02/07/18 14:27 PJM (Rec: 02/07/18 16:46 PJ [id number]) OT GOQ-Uayl-Pejaiqk General Evaluation Self-Feeding Ability Total Assistance Comments OT Self-Feeding Comments Pt did hold cup with straw placed in B hands, needs hand over hand assist to bring straw to mouth. OT ADL-Grooming General Evaluation Grooming Ability Total Assistance Comments OT Grooming Comments Pt does not grasp washcloth when offered and pushes therapist's hand way when washcloth brought to her face. Pt grasps comb placed in hand but no purposeful use noted. OT ADL-Oral Care General Eval Oral Care Ability Total Assistance Devices Oral Care Devices Toothbrush Comments Oral Care Comments Pt resistant to having tooth brush in mouth. OT ADL-Dressing General Eval Upper Body Dressing Ability Total Assistance Lower Body Dressing Ability Total Assistance OT ADL-Toileting General Evaluation Toileting Ability Total Assistance Areas Needing Assistance Manage Clothing Perform Perineal Hygiene Devices Toileting Assistive Devices Commode Comments OT Toileting Comments 2 daughters assisted pt this session with supervision from therapist. One daughter assists pt with standing while second daughter does brian care OT ADL-Bathing General Evaluation Bathing Ability Total Assistance M5 OT- IP IADL's Start: 02/06/18 14:08 Freq: Status: Active Protocol: Document 02/06/18 09:58 PJM (Rec: 02/06/18 14:43 PJM [id number]) OT-Instrumental Activities of Daily Living Deficits IADL Deficits Identified Deficits Home Safety Awareness Awareness of Need for Assistance at Home Decreased Awareness Ability to Problem Solve Emergency Unable to Problem Solve Situations Medication Management Medication Management Caregiver Administers Money Management Money Management Caregiver Provides Assistance Meal Preparation Meal Preparation Caregiver Provides Assist Aeroplane Pilot Aeroplane Pilot Caregiver Provides Assist Driving Driving Caregiver Provides Assist M6 OT- IP Functional Cognition Start: 02/06/18 14:08 Freq: Status: Active Protocol: Document 02/07/18 14:27 PJM (Rec: 02/07/18 16:46 PJM [id number]) Cognitive Factors Limiting Selfcare Function Cognitive Ability Level of Alertness Alert [place]us[place] Attention Span Ability Unable to Focus Executive Function Ability Unable to Hold Focus Cognitive Comments Cognitive Assessment Comments Pt appears internally distracted, calling out for her step sister Roro, who she lived with briefly in childhood. OT- Vision and Hearing OT- Hearing Assessment OT- Hearing Assessment WFL OT- Vision Assessment Vision Assessment Comments Pt turning to look at daughter to R of midline; appears to have L>R visual spatial neglect. M7 OT- IP Mobility and Balance Start: 02/06/18 14:08 Freq: Status: Active Protocol: Document 02/07/18 14:27 PJM (Rec: 02/07/18 16:46 [facility] [id number]) OT- Bed Mobility Assessment Rolling Type of Rolling Roll to Right Level of Assistance Maximum Assistance 1 Person Assistance Supine to Sit Supine to Sit Assist Maximum Assistance 1 Person Assistance Head of Bed Elevated Sit to Supine Sit to Supine Assist Total Assistance 1 Person Assistance Scooting Scooting to Edge of Bed Total Assistance 1 Person Assistance Scooting Up and Down in Bed Total Assistance 2 Person Assistance OT-Transfer Assessment Sit to and From Stand Sit to and from Stand Moderate Assistance 2 Person Assistance Transfers Transfer Ability Moderate Assistance 2 Person Assistance Technique Transfer Destination Bedside Commode Transfer Technique Stand Step Pivot Devices Transfer Assistive Devices Gait Belt Comments Mobility Comments 2 daughters completed transfer from bed to bedside commode with SBA and min cues from therapist OT- Gait Assessment Comments Gait Ability Comments did not occur OT- Balance Assessment Sitting Balance and Reactions Static Sitting Balance Ability Poor Dynamic Sitting Balance Ability Poor Standing Balance and Reactions Static Standing Balance Ability Poor Dynamic Standing Balance Ability Poor M9 OT- IP Assessment and Plan Start: 02/06/18 14:08 Freq: Status: Active Protocol: Document 02/07/18 14:27 [facility] (Rec: 02/07/18 16:46 [facility] [id number]) OT Summary Assessment and Plan Potential Rehabilitation Potential Poor Summary OT Impairments Pain Strength Balance Coordination Functional Cognition Functional Mobility Self-Feeding Grooming Dressing Toileting Bathing Toilet Transfers Shower Transfers Progress Towards Goals Slow Progress due to Pain Slow Progress due to Cognition Assessment Summary Pt much more alert today and able to hold cup placed in hand, but still requires total assist for all self care and transfers. Pt able to ask for bathroom as she attempted to get out of bed. Two daughters who are her primary caregivers at home, able to demonstrate safe bed to bedside commode transfer as per home set up. They are able to complete brian care for pt. Pt still not following specific commands but does occasionally respond to context cues. Pt remains very internally distracted with intermittent crying and calling out. She does appear to recognize daughters. Will continue trial of OT services to see if participation in self care tasks improves as medications adjusted. Goals Self-Feeding Goal Minimal Assistance Grooming Goal Moderate Assistance Dressing Goal Moderate Assistance Toilet Transfer Goal Minimal Assistance Bedside Commode Days to Meet Goals 4 Frequency of Treatment Frequency Of Treatment Once a Day Treatment Plan OT Treatment Plan ADL Training Functional Cognition Training Functional Mobility Patient/Family Education Discharge Planning Discharge Recommendations OT Discharge Recommendations Home with 24/ Assist Other Discharge Recommendations vs Memory Care Unit; if pt d/c's home, family will need additional paid caregiver assist to manage her care
[2018-02-07] MEDS: GABAPENTIN 300 MG CAPSULE PO (17:07)
--- NOTE | 2018-02-07 18:03 | PC.NURSE ---
:Student Nurse Note: This student administered the patients dinner time medications at 17:20. Gabapentin 300mg po 1 tab and Tylenol 325mg po 2 tabs in pudding not crushed. The patient had just woken up from a very long nap and started moaning. When this student nurse came into the room the daughter and the BENCH LOOM WEAVER were assisting the patient to the commode to urinate. This nursing executive assisted the team in the task. While the patient was on the commode this student nurse administered the medication. The patient was very disoriented and not responsive to questions or cues and made minimal eye contact. This student nurse got pudding on the patients lips and then she opened her mouth. Once a spoonful of pudding with a pill was in her mouth she would attempt to chew it up. The BENCH LOOM WEAVER assisted the patient with water through a straw while this student nurse stroked the patients throat to cue swallowing. The patient took 3 separate spoonfuls of pudding and each pill and swallowed successfully. The patient urinated a small amount of dark yellow/orange urine. This student nurse notified the patients daughter and educated to increase PO fluid intake. When patient stood and bore weight her wailing increased and her FLACC scale indicated she was in some amount of pain. Patient continues to wail intermittently but does not sound like she is in distress.
--- NOTE | 2018-02-07 19:00 | PM.PN.1 ---
Subjective Date Patient Seen: 02/07/18 Time Patient Seen: 08:44 Interval history: Patient is sitting up in be this morning being fed breakfast by the nursing assistance. She is eating well. She is also drinking milk from a straw. She is also indicating when she wants more food and when to stop. Exam Vital Signs (past 8 hours): - 02/07/18 11:47 02/07/18 16:27 02/07/18 18:08 Temperature 99.8 F H 97.7 F Pulse Rate 115 H 109 H Respiratory Rate 15 18 Blood Pressure 135/95 H 137/57 L Pulse Oximetry 97 96 97 Oxygen Delivery Method Room Air Oxygen Flow Rate 0 Narrative Exam Narrative: General: Well-developed, well-nourished, female, no acute distress. Heart: Regular rate and rhythm, no murmurs appreciated Lungs: Clear to auscultation bilaterally, no wheezes, rales or rhonchi, she follows commands today to take a deep inspiration and blowout Extremities: Warm and well perfused, no edema She is calm and less agitated this morning Objective Labs Result Diagrams: 02/05/18 14:15 02/05/18 14:15 Assessment & Plan (1) Acute encephalopathy: Current visit: Yes Status: Acute (2) Urinary tract infection: Qualifiers: Hematuria presence: without hematuria Urinary tract infection type: acute cystitis Qualified Code(s): N30.00 - Acute cystitis without hematuria Current visit: Yes Status: Acute (3) Essential hypertension: Current visit: No Status: Chronic (4) Rheumatoid arthritis: Problem details: 04/2014: Leflunomide, prednisone 07/2013 started with rheum at [facility] methotrexate 03/2013 had hemorrhagic stroke followed by ischemic stroke Prednisone, plaquenil, orencia had been on enbrel and 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 and stopped Qualifiers: Rheumatoid arthritis location: unspecified site Rheumatoid factor presence: with rheumatoid factor Qualified Code(s): M05.9 - Rheumatoid arthritis with rheumatoid factor, unspecified Current visit: No Status: Chronic (5) Intracranial hemorrhage: Problem details: with micro hemorrhages Current visit: No Status: Acute (6) Cerebral amyloid angiopathy: Problem details: 03/31/2013 Large hemorrhagic stroke to the left temporal occipital area 07/03/2013 ischemic stroke right posterior sella Bellair hemisphere Current visit: No Status: Chronic Plan: Assessment/Plan Narrative: Acute urinary tract infection, cystitis - Continue ciprofloxacin until tomorrow for 3 days to treat acute cystitis. Patient seems to be improving. Urine growing e. coli which is sensitive. Delirium - metabolic encephalopathy - Secondary to UTI. Much clearer today. - Possible residual from olanzapine or lorazepam. However she is much clearer today and did receive lorazepam earlier. Despite evidence this may become a workable medication for this patient. - Recommended trial of haldol was not done yesterday. This was likely a good thing, however we don't know if this medication would be beneficial for her to help with sleep and agitation. Will have it available prn tonight and have removed lorazepam from her medication list. - Continue usual melatonin and gabapentin at bedtime as well if she will take these Hypertension - Very important to have blood pressure at goal which is less than 130/80 given recent hemorrhagic stroke, pressure have been variable, will try to use leg cuff to get more stable readings. - She has not been reliably taking PO medication. Today has been better. Continue losartan, amlodipine. Had been on labetalol and spironolactone as well. Will add if pressure elevate. Rheumatoid arthritis - Continue home meds - chronic prednisone use, will make sure her protonix is IV so she is able to get this medication Pain? - possible sources are her pre-existing sciatica, rheumatoid arthritis, skin breakdown. Will try to get some topicals to try. DVT prophylaxis: contraindicated with her recent hemorrhagic stroke, would not tolerate SCD's CODE status: full code, will discuss further with family as we discuss goals of care Disposition: Anticipate patient to be able to discharge tomorrow or the next day if she continues to improve.
[2018-02-07] MEDS: MELATONIN 3 MG TABLET PO (19:21)
[2018-02-08] VITALS (12 sets, daily range): BP systolic 93–131; BP diastolic 46–76; PULSE 83–118; RESP 18–92; TEMP 36.3–37.9; O2SAT 20–98
--- NOTE | 2018-02-08 | DI.CT.S_ITS ---
PROCEDURE: CT HEAD/BRAIN WO CON INDICATIONS: altered mental status, drop H/H, hx hemorrhagic stroke TECHNIQUE: Noncontrast 4.5 mm thick angled axial sections acquired from the foramen magnum to the vertex, with coronal and sagittal reformats. For radiation dose reduction, the following was used: automated exposure control, adjustment of mA and/or kV according to patient size. COMPARISON: [facility], CT, CT HEAD/BRAIN WO CON, 12/13/2017, 9:47. FINDINGS: Image quality: Excellent. CSF spaces: Basal cisterns are patent. No extra-axial fluid collections. The ventricles are symmetric in size and shape. Brain: There is interval decrease in size and density of the patient's known large intraparenchymal hematoma involving the right temporal region consistent with resolving hematoma. There is a mildly hyperdense area involving left parietal lobe measures approximately 1.9 x 1.5 x 1.6 cm in size with moderate amount of surrounding vasogenic edema suggestive of a subacute hematoma in this area new since previous study. Old infarction in right posterior parietal-occipital region is again seen with encephalomalacia. There is cerebral volume loss for age, with resultant ventricular and sulcal prominence. There are periventricular and deep white matter chronic small vessel ischemic changes. There is intracranial internal carotid artery atherosclerosis. Skull and face: Calvarium and visualized facial bones appear intact, without suspicious lesions. Sinuses: Visualized sinuses and mastoids are clear. IMPRESSION: 1. Interval decrease in size and density of previously noted large right temporal lobe hematoma, consistent with evolving hemorrhagic stroke. 2. Interval development of subacute appearing interfrontal hematoma involving left parietal lobe measures 1.9 x 1.5 x 1.6 cm in size with moderate amount of surrounding vasogenic edema. 3. No other new area of intracranial hemorrhage. No midline shift. Old infarction in right posterior parietal-occipital lobe with encephalomalacia. 4. Diffuse atrophy and extensive periventricular white matter microangiopathic changes. Dictated by: Lamonte Duarte M.D. on 02/08/2018 at 19:36 Approved by: Lamonte Duarte M.D. on 02/08/2018 at 19:47
[2018-02-08] MEDS: ACETAMINOPHEN 325 MG TABLET 650 MG PO ×3 (01:58→16:58)
--- NOTE | 2018-02-08 08:49 | SLP.IPNOTE ---
Attempted to see patient for Speech Therapy this AM, however, patient is sleeping and daughter, Alena requested patient not be woken up until later this AM. Will attempt to see patient later today.
[2018-02-08] MEDS: PANTOPRAZOLE 40 MG VIAL IV (09:44)
[2018-02-08] MEDS: SODIUM CHLORIDE 0.9% FLUSH 10 ML IV ×2 (09:45→23:00)
[2018-02-08] MEDS: POTASSIUM CHLORIDE 20 MEQ TAB 40 MEQ PO (09:46)
[2018-02-08] MEDS: LEFLUNOMIDE 20 MG TABLET PO (09:46)
[2018-02-08] MEDS: predniSONE 5 MG TABLET PO (09:47)
--- NOTE | 2018-02-08 11:45 | PT.IPTN ---
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) Encephalopathy, unspecified (02/04/18) Essential (primary) hypertension (02/04/18) Nontraumatic intracranial hemorrhage, unspecified (02/04/18) Cerebral amyloid angiopathy (02/04/18) Rheumatoid arthritis with rheumatoid factor, unspecified (02/04/18) Rheumatoid arthritis, unspecified (02/04/18) Acute cystitis without hematuria (02/04/18) Urinary tract infection, site not specified (02/04/18) Disorientation, unspecified (02/04/18) Abnormal weight loss (02/04/18) Physical Therapy Treatment Note M2 PT-IP Current Condition Start: 02/06/18 16:12 Freq: NEEDED Status: Active Protocol: Document 02/07/18 13:30 AB (Rec: 02/07/18 16:07 AB [id number]) Physical Therapy Current Condition Current Condition Evaluation Date 02/07/18 Treatment Diagnosis delirium, UTI; gen. weakness Onset Date 02/04/18 Precautions Other Precautions fall risk, agitation, bed alarm M3 PT-IP Subjective Start: 02/06/18 16:12 Freq: NEEDED Status: Active Protocol: Document 02/08/18 11:45 GGD (Rec: 02/08/18 12:08 GGD [id number]) Subjective Physical Therapy Visit Type Type Treatment Note Visit Start Time 11:20 Visit Stop Time 11:45 Total Visit Minutes 35 Notes TIE SAWYER needs assistance for pt to use the bathroom. Therapy Pain Assessment Pain When Pain Assessed During Mobility Pain Present Pain Present Pain Reported M4 PT-IP Mobility and Gait Start: 02/06/18 16:12 Freq: NEEDED Status: Active Protocol: Document 02/08/18 11:45 GGD (Rec: 02/08/18 12:08 GGD [id number]) PT-Transfer Assessment Sit to and From Stand Sit to and from Stand Minimal Assistance 1 Person Assistance Use of Upper Extremities Equipment Transfer Assistive Device Gait Belt Transfers Transfer Destination Chair Bedside Commode Gait Assessment Gait Gait Assistance Required: Minimum Assistance 1 Person Assist 2 Person Assist Distance (Feet) 20 Able to Maintain Weight Bearing Status Yes During Gait Assistive Devices Assistive Device Gait Belt Gait Deviations General Gait Pattern Decreased Stride Length Decreased Feet Clearance Factors Limiting Gait Function Factors Limiting Gait Function Decreased Activity Tolerance Decreased Strength Difficulty Following Directions Incoordination Pain Poor Balance Poor Safety Awareness Comments Gait Comments Pt used hand hold assist for gait from chair <> BSC. Two person hand hold assist to BSC x 10 feet and then one person hand hold assist to Chair x 10 feet. M5 PT-IP Objective Assessments Start: 02/06/18 16:12 Freq: NEEDED Status: Active Protocol: Document 02/07/18 13:30 AB (Rec: 02/07/18 16:07 AB [id number]) Orientation Orientation/Cognition Level of Alertness Alert Language Function Ability Expressive Aphagia Receptive Aphagia Word Finding Difficulties Safety Awareness Decreased Safety Awareness Memory Description Short Term Impaired Ship Engineer Impaired M6 PT-IP Treatment Start: 02/06/18 16:12 Freq: NEEDED Status: Active Protocol: Document 02/07/18 13:30 AB (Rec: 02/07/18 16:07 AB [id number]) Physical Therapy Treatment Other Treatments Other Treatment Performed educated pt's daughter regarding PT POC and pt's current mobility and safety concerns M7 PT-IP Assessment and Plan Start: 02/06/18 16:12 Freq: NEEDED Status: Active Protocol: Document 02/08/18 11:45 GGD (Rec: 02/08/18 12:08 GGD [id number]) PT Summary Assessment and Plan Summary Assessment Summary Pt improved with mobility. She was slow moving and need time after single step cues. She need less assistance and able to follow simple cueing. Frequency of Treatment Frequency Of Treatment Once a Day Treatment Plan Physical Therapy Treatment Plan Bed Mobility Training Transfer Training Gait Training Therapeutic Exercise Balance Retraining Discharge Planning Neuromuscular Re-ed Coordination Retraining Manual Therapy Recommendations To Nursing Amount of Assist Needed 2 Person Assist Discharge Recommendations PT Discharge Recommendations Home with 24/7 Assist Home Health SNF Rehab
--- NOTE | 2018-02-08 14:12 | SLP.IPNOTE ---
Second attempt to see patient for speech therapy today. Patient's daughter, Alysa, declined therapy at this time due to patient's agitation following patient care.
[2018-02-08 14:36] LABS: Add Manual Diff / Slide Review NO; Basophils Percent Auto 0.7 % (0-2); Eosinophils Percent Auto 1.3 % (2-4); Hematocrit 25.4 % (36-46); Hemoglobin 8.4 g/dL (12.0-16.0); Lymphocytes Percent Auto 9.1 % (25-40); Mean Corpuscular HGB Conc 33.1 % (30-36); Mean Corpuscular Hemoglobin 31.5 PG (26-34); Mean Corpuscular Volume 95.2 fL (80-100); Monocytes Percent Auto 10.7 % (3-14); Neutrophils Absolute Auto 11900 /uL (3000-5900); Neutrophils Percent Auto 78.2 % (50-75); Platelet Count 411 X10^3/uL (150-400); Red Blood Cell Count 2.67 X10^6/uL (4.0-5.2); Red Cell Distribution Width 15.2 % (11.6-14.8); White Blood Cell Count 15.2 X10^3/uL (4.5-11.0)
[2018-02-08 14:55] LABS: Blood Urea Nitrogen 22 mg/dL (7-17); Carbon Dioxide 27 mmol/L (22-32); Chloride 96 mmol/L (98-107); Glucose 131 mg/dL (80-110); HEMOLYSIS < 15 (0-50); Potassium 3.8 mmol/L (3.4-5.1); Sodium 136 mmol/L (137-145)
--- NOTE | 2018-02-08 15:19 | OT.IP.TRT ---
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) Encephalopathy, unspecified (02/04/18) Essential (primary) hypertension (02/04/18) Nontraumatic intracranial hemorrhage, unspecified (02/04/18) Cerebral amyloid angiopathy (02/04/18) Rheumatoid arthritis with rheumatoid factor, unspecified (02/04/18) Rheumatoid arthritis, unspecified (02/04/18) Acute cystitis without hematuria (02/04/18) Urinary tract infection, site not specified (02/04/18) Disorientation, unspecified (02/04/18) Abnormal weight loss (02/04/18) Occupational Therapy Treatment Note M2 OT-IP Current Condition Start: 02/06/18 14:08 Freq: Status: Active Protocol: Document 02/06/18 09:58 PJM (Rec: 02/06/18 14:43 PJM [id number]) Occupational Therapy Current Condition Current Condition Evaluation Date 02/06/18 Treatment Diagnosis decreased cognition, self care , mobility with agitation Diagnosis Onset Date 02/04/18 Post Operative Precautions Other Precautions fall risk, agitation, bed alarm M3 OT- IP Subjective and Pain Start: 02/06/18 14:08 Freq: Status: Active Protocol: Document 02/08/18 15:15 [facility] (Rec: 02/08/18 15:19 [facility] [id number]) OT- Subjective Occupational Therapy Visit Type Type Treatment Note Visit Start Time 09:10 Visit Stop Time 09:15 Total Visit Minutes 5 Notes HUMIDIFIER OPERATOR requesting assist to get pt off the bsc to recliner. OT Pain Assessment Pain When Pain Assessed At Rest Pain Present Pain Present Unable to Respond FLACC Pain Scale Face Occasional grimace/frown Legs Kicking or drawn up Activity Squirming,shifting Cry Moans/whimpers/complains M4 OT- IP ADL's Start: 02/06/18 14:08 Freq: Status: Active Protocol: Document 02/08/18 15:15 [facility] (Rec: 02/08/18 15:19 [facility] [id number]) OT ADL-Toileting General Evaluation Areas Needing Assistance Manage Clothing Perform Perineal Hygiene Devices Toileting Assistive Devices Commode Comments OT Toileting Comments Pt dependent for all pericare needs. M5 OT- IP IADL's Start: 02/06/18 14:08 Freq: Status: Active Protocol: Document 02/06/18 09:58 PJM (Rec: 02/06/18 14:43 PJ [id number]) OT-Instrumental Activities of Daily Living Deficits IADL Deficits Identified Deficits Home Safety Awareness Awareness of Need for Assistance at Home Decreased Awareness Ability to Problem Solve Emergency Unable to Problem Solve Situations Medication Management Medication Management Caregiver Administers Money Management Money Management Caregiver Provides Assistance Meal Preparation Meal Preparation Caregiver Provides Assist Manager Shift Manager Shift Caregiver Provides Assist Driving Driving Caregiver Provides Assist M6 OT- IP Functional Cognition Start: 02/06/18 14:08 Freq: Status: Active Protocol: Document 02/08/18 15:15 [facility] (Rec: 02/08/18 15:19 [facility] [id number]) Cognitive Factors Limiting Selfcare Function Cognitive Ability Level of Alertness Confusional State M7 OT- IP Mobility and Balance Start: 02/06/18 14:08 Freq: Status: Active Protocol: Document 02/07/18 14:27 PJM (Rec: 02/07/18 16:46 PJ [id number]) OT- Bed Mobility Assessment Rolling Type of Rolling Roll to Right Level of Assistance Maximum Assistance 1 Person Assistance Supine to Sit Supine to Sit Assist Maximum Assistance 1 Person Assistance Head of Bed Elevated Sit to Supine Sit to Supine Assist Total Assistance 1 Person Assistance Scooting Scooting to Edge of Bed Total Assistance 1 Person Assistance Scooting Up and Down in Bed Total Assistance 2 Person Assistance OT-Transfer Assessment Sit to and From Stand Sit to and from Stand Moderate Assistance 2 Person Assistance Transfers Transfer Ability Moderate Assistance 2 Person Assistance Technique Transfer Destination Bedside Commode Transfer Technique Stand Step Pivot Devices Transfer Assistive Devices Gait Belt Comments Mobility Comments 2 daughters completed transfer from bed to bedside commode with SBA and min cues from therapist OT- Gait Assessment Comments Gait Ability Comments did not occur OT- Balance Assessment Sitting Balance and Reactions Static Sitting Balance Ability Poor Dynamic Sitting Balance Ability Poor Standing Balance and Reactions Static Standing Balance Ability Poor Dynamic Standing Balance Ability Poor M8 OT- IP Objective Assessments Start: 02/06/18 14:08 Freq: Status: Active Protocol: Document 02/06/18 09:58 PJM (Rec: 02/06/18 14:43 PJ [id number]) OT Gross Range of Motion Upper Extremity Range of Motion ROM Impairments Pt tends to keep B hand tightly fisted on bed clothes; picks at coban on R wrist IV at times OT Strength Comments Strength Comments appears to have antigravity strength in BUE by observation with no obvious unilateral weakness OT- Coordination Assessment Comments Coordination Comments has at least mass grasp and release in B hands OT-Muscle Tone Assessment Comments Muscle Tone Comments appears to have isolated finger control in B hands by observation OT Sensation Assessment Comments Summary Comments unable to assess Edema Edema Absent M9 OT- IP Assessment and Plan Start: 02/06/18 14:08 Freq: Status: Active Protocol: Document 02/08/18 15:15 [facility] (Rec: 02/08/18 15:19 [facility] [id number]) OT Summary Assessment and Plan Frequency of Treatment Frequency Of Treatment Once a Day Treatment Plan OT Treatment Plan ADL Training Functional Cognition Training Functional Mobility Patient/Family Education Discharge Planning Discharge Recommendations OT Discharge Recommendations Home with 30/10 Assist Other Discharge Recommendations vs Memory Care Unit; if pt d/c 's home, family will need additional paid caregiver assist to manage her care
[2018-02-08 15:47] LABS: RBC Urine None Seen (0-5/HPF)
[2018-02-08 16:05] LABS: Amorphous Sediment Urine 1+; Bacteria Urine Few (2-10); Granular Casts Urine 0-1/LPF; Hyaline Casts Urine 1-5/LPF; Mucus Urine 1+ (Negative); Squamous Epithelial Cell Urine 5-10 /HPF; WBC Urine 1-5/HPF (0-5/HPF)
--- NOTE | 2018-02-08 16:06 | CM.DPC ---
DCP Cont: Following closely. Dr Matt indicated to this CONDOMINIUM MANAGER this morning that pt's family feel they can take pt home when she is medically stable. Pt has slept for the last two nights which Dr Matt feels is a positive step. Pt has not required a dose of Haldol or Ativan per [place]. Pt continues to call out throughout the day. Dr Guevara continues to consult and feels it's approp to trial a po dose of Haldol to see how pt reacts and if this might be an approp tool for family to use at home if pt becomes agitated or restless. Pt's mental status will likely continue to wax and wane for quite some time, new baseline is unknown d/t pt's recent medical events and effect on cognition. A copy of the Palliative Care notes from are on pt's chart for review if needed. Dr Guevara has a copy of these. This CONDOMINIUM MANAGER unable to contact family today to reevaluate DCP and discuss HH and possibly in home cg? Following closely, addtl coordination of DCP needed. HEATHER Hardy
--- NOTE | 2018-02-08 16:11 | PC.NURSE ---
Addendum entered by Aziza Wright R.N. 02/08/18 16:34: additionally pt bp this am was 100 to 110 systolic and MD Matt made aware. later at noon bp was low 90's sys. was notified of this as well and adjusted meds. UA was obtained clean catch, pt was cleaned well and new container used to collect prior to obtaining spec. Spec sent to lab. Original Note: LOC: Dtr April reports pt is doing better and being more cooperative. Did take her meds this am. Dtr requesting dilantin to be changed to orals to be sure she can administer med at home. It can't be crushed and is the only med she takes whole or not crushed. DR Matt made aware and it was changed. April has gone home for some rest and other dtr hasn't been able to get her to take med yet. April is returning and will have med given this nina. Tylenol given for c/o pain, pt will say she hurts but can't specify where the pain is or what is causing it. Seems to be the abd at times. Other times can't say or point to where/what it is. Is still having behavior challenges, still trying to bite people or kick them. Requires assist of 2 for pt and staff safety. During a transfer pt will try to bite the arm of the people transfering her. Has called out today usually saying Maaaaarrrriiee! but it is less than yesterday. At times april is sitting in front of her and patient doesn't recognize her. April and her other sister feel a little frustrated, sad about their mother, in general out of sorts to all the changes which have occurred recently. Time given for them to express feelings. They want to take mom home but it has been a difficult process for them over the last couple of weeks. Will cont to support their coping mechanisms. Cont w/poc.
[2018-02-08] MEDS: PHENYTOIN ER 100 MG CAPSULE PO (16:56)
[2018-02-08] MEDS: LORazepam 2 MG/ML SYRINGE 0.5 MG IV ×3 (18:04→23:59)
[2018-02-08] MEDS: GABAPENTIN 300 MG CAPSULE PO (18:04)
--- NOTE | 2018-02-08 20:00 | PM.CN ---
History of Present Illness Date Patient Seen: 02/08/18 Time Patient Seen: 17:30 Chief complaint: Delirium Reason for consult: Delirium management Requesting provider: Ailin Matt Narrative: Nursing notes: up after nap yesterday evening, moaning/wailing, accepting medications. Overnight: prn Tylenol No prn Haldol given, and pt calmer yesterday, discussed with Dr. Matt with joint decision to hold scheduled Haldol for now Interview: Pt seen while in wheelchair & walking in the hallway with her daughter. She is intermittently wailing or mentioning looking for Alena. She makes eye contact with this provider at times, and appears to recognize Dr. Matt when she arrives. No clear answers to questions. Appears to be looking for something. Her daughter is able to redirect her behavior for the most part. 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) Chronic kidney disease (CKD) stage G3a/A2, moderately decreased glomerular filtration rate (GFR) between 45-59 mL/min/1.73 square meter and albuminuria creatinine ratio between 30-299 mg/g (Chronic 11/18/14) Asthma due to seasonal allergies (Chronic 06/04/15) Eczema (Chronic 03/08/16) Chronic disease anemia (Chronic 07/04/17) Anxiety (Chronic ~1999) Cataract (Chronic ~1998) Eczema (Chronic) Fecal incontinence (Chronic) Hearing loss (Chronic ~1998) Hyperlipidemia (Chronic ~1998) Hypertension (Chronic) Rheumatoid arthritis (Chronic ~1979) Seasonal allergies (Chronic ~2012) Urinary incontinence (Chronic) Vision abnormalities (Chronic) Body mass index (BMI) of 25.0 to 29.9 (Resolved 04/23/14) Chickenpox (Resolved ~1951) Ischemic stroke (Resolved ~2013) Measles (Resolved ~1951) Mumps (Resolved ~1951) Rubella (Resolved ~1951) Surgical History History of ectopic (Resolved ~1971) History of cataract removal with insertion of prosthetic lens (~2015) History of third molar tooth extraction (~1994) History of tonsillectomy (~1951) S/P total abdominal hysterectomy and bilateral salpingo-oophorectomy (~1973) Status post appendectomy (~1973) Status post bunionectomy (~2004) Status post cholecystectomy (~1994) Family History: Reviewed 02/04/18 by Caitlyn May DO Social History household members: children Smoking Status: Former smoker Meds Home Medications Medication Instructions Recorded Confirmed Type omeprazole 20 mg PO QDAY #90 cap 10/16/17 02/04/18 Rx potassium chloride [Klor-Con M20] 40 meq PO BID #360 ter 10/29/17 02/04/18 Rx gabapentin 300 mg PO QPM 12/13/17 02/04/18 History leflunomide 20 mg PO DAILY 12/13/17 02/04/18 History acetaminophen 650 mg PO Q6H PRN 02/04/18 02/04/18 History amlodipine 10 mg PO QAM 02/04/18 02/04/18 History calcium carbonate 500 mg PO TID PRN 02/04/18 02/04/18 History hydrocortisone 1 applic TOPICAL BID PRN 02/04/18 02/04/18 History labetalol 1 tab PO BID 02/04/18 02/04/18 History losartan 1 tab PO QAM 02/04/18 02/04/18 History magnesium hydroxide 10 ml PO Q OTHER DAY 02/04/18 02/04/18 History magnesium oxide 400 mg PO DAILY 02/04/18 02/04/18 History melatonin 3 mg PO BEDTIME 02/04/18 02/04/18 History ondansetron 1 tab PO Q8H PRN 02/04/18 02/04/18 History phenytoin sodium extended 1 cap PO DAILY 02/04/18 02/04/18 History prednisone 02/04/18 History prednisone 02/04/18 History prednisone 5 mg PO QAM 02/04/18 02/04/18 History quetiapine 12.5 mg PO BEDTIME PRN 02/04/18 02/04/18 History quetiapine 37.5 mg PO QPM 02/04/18 02/04/18 History sennosides [senna] 17.2 mg PO BID PRN 02/04/18 02/04/18 History spironolactone 50 mg PO QAM 02/04/18 02/04/18 History triamcinolone acetonide 0 gm TOPICAL BID PRN 02/04/18 02/04/18 History Allergies Allergy/AdvReac Type Severity Reaction Status Date / Time Penicillins [PENICILLINS] Allergy Mild ITCH/EARS Verified 02/04/18 15:03 FEEL FULL Sulfa (Sulfonamide Allergy Mild ITCH/EAR Verified 02/04/18 15:03 Antibiotics) FEEL FULL cephalexin [CEPHALEXIN] Allergy Unknown unknown Verified 02/04/18 15:03 coconut oil [COCONUT OIL] Allergy Unknown rash, Verified 02/04/18 15:03 itching Review of Systems Review of Systems unobtainable due to mental condition Exam Vital Signs (past 8 hours): - 02/08/18 14:00 Temperature 99.4 F Pulse Rate 92 H Respiratory Rate 18 Blood Pressure 93/52 L Pulse Oximetry 94 Oxygen Delivery Method Room Air Oxygen Flow Rate 0 Narrative Exam Narrative: Appearance: fair-skinned female, straight hair, wearing hospital garb, appears stated age Behavior: sitting in wheelchair or walking at times, limited eye contact, restless, no clear tremor or involuntary movements observed Speech: limited, high-pitched at times & shifts to lower pitch with comments that are semi-appropriate Mood: unable to assess due to lack of answers to questions Affect: distressed, anxious, labile Thought process: disorganized, likely reacting to internal stimuli Thought content: unable to assess due to lack of engagement in interview, suspect some paranoia & hallucinations Memory:poor Orientation: unable to assess due to lack of engagement in interview but suspect disorientation Attention: poor Insight: poor Judgment: poor Objective Labs Result Diagrams: 02/08/18 14:15 02/08/18 14:15 Labs: Laboratory Results - last 24 hr 02/08/18 02/08/18 02/08/18 13:53 14:15 14:15 WBC 15.2 H RBC 2.67 L Hgb 8.4 L Hct 25.4 L MCV 95.2 MCH 31.5 MCHC 33.1 RDW 15.2 H Plt Count 411 H Neut % (Auto) 78.2 H Lymph % (Auto) 9.1 L [place] % (Auto) 10.7 Eos % (Auto) 1.3 L Baso % (Auto) 0.7 Neut # (Auto) 82597 H Sodium 136 L Potassium 3.8 Chloride 96 L Carbon Dioxide 27 BUN 22 H Creatinine 1.10 H Estimated GFR 49.0 L BUN/Creatinine Ratio 20.0 Glucose 131 H Calcium 8.0 L Urine RBC None seen Urine WBC 1-5/hpf Ur Squamous Epith Cells 5-10 /hpf H Amorphous Sediment 1+ Urine Bacteria Few (2-10) H Hyaline Casts 1-5/lpf Granular Casts 0-1/lpf Urine Mucus 1+ H Ur Culture Indicated? Not Reportable Micro UA Comment Not Reportable Assessment & Plan (1) Delirium: Current visit: Yes Status: Acute (2) Urinary tract infection: Qualifiers: Encounter type: Hematuria presence: without hematuria Indwelling urinary catheter type: Urinary tract infection type: acute cystitis Qualified Code(s): N30.00 - Acute cystitis without hematuria Current visit: Yes Status: Acute (3) Cerebral amyloid angiopathy: Problem details: 03/31/2013 Large hemorrhagic stroke to the left temporal occipital area 07/03/2013 ischemic stroke right posterior sella Bellair hemisphere Current visit: No Status: Chronic Plan: Assessment/Plan Narrative: Aziza Rodas is a 72-year-old female with multiple medical problems (CKD, HTN, RA) s/p ischemic & hemorrhagic strokes discharged from [facility] 01/25/18, now admitted to in the context of worsening agitation & UTI. Consult is requested for delirium management. Patient's presentation is consistent with delirium, with waxing & waning attention & concentration & significant distress. Given communication difficulties including aphasia, it is difficult to assess for hallucinations but she does appear to be reacting to internal stimuli. UTI & sequelae from CVAs are both contributing factors for delirium. Pt is showing some improvement over the past 24-48h, with improvement in sleep. This may be a product of UTI resolving. Her baseline post-CVAs is unclear. Consider at least one test dose of haldol while in the hospital, to help assess patient's response to this, may help to expand tools that are usable at home, and haldol is less likely to worsen delirium as compared to lorazepam. However, if low doses of lorazepam are effective for agitation and used infrequently, this is also likely safe. RECOMMENDATIONS: - Continue haldol 0.5mg IV TID prn agitation (ok to repeat q1h if needed to control agitation) (Can also use haldol 1mg TID prn agitation if patient is able to accept po) - OK for infrequent doses of lorazepam, but caution against escalating or daily dosing as this can worsen delirium - If QTc>500, hold haldol & contact psychiatry for guidance - Delirium precautions as you are doing including: >avoid deliriogenic medications including benzodiazepines, opiate, anticholinergics as possible >access to daylight & minimize interruptions at night to help regulate day/night cycle >access to hearing & visual aid devices as appropriate >frequent re-orientation Thank you for involving me in this patient's care, I will sign off at this time, but please do not hesitate to contact me if patient's condition worsens.
--- NOTE | 2018-02-08 20:07 | P.CONS_ITS ---
History of Present Illness Date Patient Seen: 02/08/18 Time Patient Seen: 17:30 Chief complaint: Delirium Reason for consult: Delirium management Requesting provider: Ailin Matt Narrative: Nursing notes: up after nap yesterday evening, moaning/wailing, accepting medications. Overnight: prn Tylenol No prn Haldol given, and pt calmer yesterday, discussed with Dr. Matt with joint decision to hold scheduled Haldol for now Interview: Pt seen while in wheelchair & walking in the hallway with her daughter. She is intermittently wailing or mentioning looking for Alena. She makes eye contact with this provider at times, and appears to recognize Dr. Matt when she arrives. No clear answers to questions. Appears to be looking for something. Her daughter is able to redirect her behavior for the most part. 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) Chronic kidney disease (CKD) stage G3a/A2, moderately decreased glomerular filtration rate (GFR) between 45-59 mL/min/1.73 square meter and albuminuria creatinine ratio between 30-299 mg/g (Chronic 11/18/14) Asthma due to seasonal allergies (Chronic 06/04/15) Eczema (Chronic 03/08/16) Chronic disease anemia (Chronic 07/04/17) Anxiety (Chronic ~1999) Cataract (Chronic ~1998) Eczema (Chronic) Fecal incontinence (Chronic) Hearing loss (Chronic ~1998) Hyperlipidemia (Chronic ~1998) Hypertension (Chronic) Rheumatoid arthritis (Chronic ~1979) Seasonal allergies (Chronic ~2012) Urinary incontinence (Chronic) Vision abnormalities (Chronic) Body mass index (BMI) of 25.0 to 29.9 (Resolved 04/23/14) Chickenpox (Resolved ~1951) Ischemic stroke (Resolved ~2013) Measles (Resolved ~1951) Mumps (Resolved ~1951) Rubella (Resolved ~1951) Surgical History History of ectopic (Resolved ~1971) History of cataract removal with insertion of prosthetic lens (~2015) History of third molar tooth extraction (~1994) History of tonsillectomy (~1951) S/P total abdominal hysterectomy and bilateral salpingo-oophorectomy (~1973) Status post appendectomy (~1973) Status post bunionectomy (~2004) Status post cholecystectomy (~1994) Family History: Reviewed 02/04/18 by Caitlyn May DO Social History household members: children Smoking Status: Former smoker Meds Home Medications Medication Instructions Recorded Confirmed Type omeprazole 20 mg PO QDAY #90 cap 10/16/17 02/04/18 Rx potassium chloride [Klor-Con M20] 40 meq PO BID #360 ter 10/29/17 02/04/18 Rx gabapentin 300 mg PO QPM 12/13/17 02/04/18 History leflunomide 20 mg PO DAILY 12/13/17 02/04/18 History acetaminophen 650 mg PO Q6H PRN 02/04/18 02/04/18 History amlodipine 10 mg PO QAM 02/04/18 02/04/18 History calcium carbonate 500 mg PO TID PRN 02/04/18 02/04/18 History hydrocortisone 1 applic TOPICAL BID PRN 02/04/18 02/04/18 History labetalol 1 tab PO BID 02/04/18 02/04/18 History losartan 1 tab PO QAM 02/04/18 02/04/18 History magnesium hydroxide 10 ml PO Q OTHER DAY 02/04/18 02/04/18 History magnesium oxide 400 mg PO DAILY 02/04/18 02/04/18 History melatonin 3 mg PO BEDTIME 02/04/18 02/04/18 History ondansetron 1 tab PO Q8H PRN 02/04/18 02/04/18 History phenytoin sodium extended 1 cap PO DAILY 02/04/18 02/04/18 History prednisone 02/04/18 History prednisone 02/04/18 History prednisone 5 mg PO QAM 02/04/18 02/04/18 History quetiapine 12.5 mg PO BEDTIME PRN 02/04/18 02/04/18 History quetiapine 37.5 mg PO QPM 02/04/18 02/04/18 History sennosides [senna] 17.2 mg PO BID PRN 02/04/18 02/04/18 History spironolactone 50 mg PO QAM 02/04/18 02/04/18 History triamcinolone acetonide 0 gm TOPICAL BID PRN 02/04/18 02/04/18 History Allergies Allergy/AdvReac Type Severity Reaction Status Date / Time Penicillins [PENICILLINS] Allergy Mild ITCH/EARS Verified 02/04/18 15:03 FEEL FULL Sulfa (Sulfonamide Allergy Mild ITCH/EAR Verified 02/04/18 15:03 Antibiotics) FEEL FULL cephalexin [CEPHALEXIN] Allergy Unknown unknown Verified 02/04/18 15:03 coconut oil [COCONUT OIL] Allergy Unknown rash, Verified 02/04/18 15:03 itching Review of Systems Review of Systems unobtainable due to mental condition Exam Vital Signs (past 8 hours): - 02/08/18 14:00 Temperature 99.4 F Pulse Rate 92 H Respiratory Rate 18 Blood Pressure 93/52 L Pulse Oximetry 94 Oxygen Delivery Method Room Air Oxygen Flow Rate 0 Narrative Exam Narrative: Appearance: fair-skinned female, straight hair, wearing hospital garb, appears stated age Behavior: sitting in wheelchair or walking at times, limited eye contact, restless, no clear tremor or involuntary movements observed Speech: limited, high-pitched at times & shifts to lower pitch with comments that are semi-appropriate Mood: unable to assess due to lack of answers to questions Affect: distressed, anxious, labile Thought process: disorganized, likely reacting to internal stimuli Thought content: unable to assess due to lack of engagement in interview, suspect some paranoia & hallucinations Memory:poor Orientation: unable to assess due to lack of engagement in interview but suspect disorientation Attention: poor Insight: poor Judgment: poor Objective Labs Result Diagrams: 02/08/18 14:15 02/08/18 14:15 Labs: Laboratory Results - last 24 hr 02/08/18 02/08/18 02/08/18 13:53 14:15 14:15 WBC 15.2 H RBC 2.67 L Hgb 8.4 L Hct 25.4 L MCV 95.2 MCH 31.5 MCHC 33.1 RDW 15.2 H Plt Count 411 H Neut % (Auto) 78.2 H Lymph % (Auto) 9.1 L [place] % (Auto) 10.7 Eos % (Auto) 1.3 L Baso % (Auto) 0.7 Neut # (Auto) 43358 H Sodium 136 L Potassium 3.8 Chloride 96 L Carbon Dioxide 27 BUN 22 H Creatinine 1.10 H Estimated GFR 49.0 L BUN/Creatinine Ratio 20.0 Glucose 131 H Calcium 8.0 L Urine RBC None seen Urine WBC 1-5/hpf Ur Squamous Epith Cells 5-10 /hpf H Amorphous Sediment 1+ Urine Bacteria Few (2-10) H Hyaline Casts 1-5/lpf Granular Casts 0-1/lpf Urine Mucus 1+ H Ur Culture Indicated? 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 Consult is requested for delirium management. Patient's presentation is consistent with delirium, with waxing & waning attention & concentration & significant distress. Given communication difficulties including aphasia, it is difficult to assess for hallucinations but she does appear to be reacting to internal stimuli. UTI & sequelae from CVAs are both contributing factors for delirium. Pt is showing some improvement over the past 24-48h, with improvement in sleep. This may be a product of UTI resolving. Her baseline post-CVAs is unclear. Consider at least one test dose of haldol while in the hospital, to help assess patient's response to this, may help to expand tools that are usable at home, and haldol is less likely to worsen delirium as compared to lorazepam. However, if low doses of lorazepam are effective for agitation and used infrequently, this is also likely safe. RECOMMENDATIONS: - Continue haldol 0.5mg IV TID prn agitation (ok to repeat q1h if needed to control agitation) (Can also use haldol 1mg TID prn agitation if patient is able to accept po) - OK for infrequent doses of lorazepam, but caution against escalating or daily dosing as this can worsen delirium - If QTc>500, hold haldol & contact psychiatry for guidance - Delirium precautions as you are doing including: >avoid deliriogenic medications including benzodiazepines, opiate, anticholinergics as possible >access to daylight & minimize interruptions at night to help regulate day/ night cycle >access to hearing & visual aid devices as appropriate >frequent re-orientation Thank you for involving me in this patient's care, I will sign off at this time , but please do not hesitate to contact me if patient's condition worsens.
--- NOTE | 2018-02-08 20:42 | PM.PN.1 ---
Subjective Date Patient Seen: 02/08/18 Time Patient Seen: 08:04 Interval history: Patient was sleeping soundly when I first came by. She was able to be aroused and ate her breakfast. Slept soundly all night for the first time since she had her stroke. Did have a mild temperature 100.3 F axillary which resolved with tylenol. She has been taking tylenol scheduled for pain. Exam Vital Signs (past 8 hours): - 02/08/18 14:00 02/08/18 20:10 Temperature 99.4 F 98.0 F Pulse Rate 92 H 96 H Respiratory Rate 18 92 H Blood Pressure 93/52 L 103/76 Pulse Oximetry 94 20 L Oxygen Delivery Method Room Air Oxygen Flow Rate 0 Narrative Exam Narrative: General: Well-developed, well-nourished, female, no acute distress. Heart: Regular rate and rhythm, no murmurs appreciated Lungs: Clear to auscultation bilaterally, no wheezes, rales or rhonchi Extremities: Warm and well perfused, no edema She is calm and less agitated this morning Objective Labs Result Diagrams: 02/08/18 14:15 02/08/18 14:15 Labs: Laboratory Results - last 24 hr 02/08/18 02/08/18 02/08/18 13:53 14:15 14:15 WBC 15.2 H RBC 2.67 L Hgb 8.4 L Hct 25.4 L MCV 95.2 MCH 31.5 MCHC 33.1 RDW 15.2 H Plt Count 411 H Neut % (Auto) 78.2 H Lymph % (Auto) 9.1 L [place] % (Auto) 10.7 Eos % (Auto) 1.3 L Baso % (Auto) 0.7 Neut # (Auto) 95746 H Sodium 136 L Potassium 3.8 Chloride 96 L Carbon Dioxide 27 BUN 22 H Creatinine 1.10 H Estimated GFR 49.0 L BUN/Creatinine Ratio 20.0 Glucose 131 H Calcium 8.0 L Urine RBC None seen Urine WBC 1-5/hpf Ur Squamous Epith Cells 5-10 /hpf H Amorphous Sediment 1+ Urine Bacteria Few (2-10) H Hyaline Casts 1-5/lpf Granular Casts 0-1/lpf Urine Mucus 1+ H Ur Culture Indicated? Not Reportable Micro UA Comment Not Reportable Assessment & Plan (1) Acute encephalopathy: Current visit: Yes Status: Acute (2) Urinary tract infection: Qualifiers: Encounter type: Hematuria presence: without hematuria Indwelling urinary catheter type: Urinary tract infection type: acute cystitis Qualified Code(s): N30.00 - Acute cystitis without hematuria Current visit: Yes Status: Acute (3) Essential hypertension: Current visit: No Status: Chronic (4) Rheumatoid arthritis: Problem details: 04/2014: Leflunomide, prednisone 07/2013 started with rheum at [facility] methotrexate 03/2013 had hemorrhagic stroke followed by ischemic stroke Prednisone, plaquenil, orencia had been on enbrel and 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 and stopped Qualifiers: Rheumatoid arthritis location: unspecified site Rheumatoid factor presence: with rheumatoid factor Laterality: Qualified Code(s): M05.9 - Rheumatoid arthritis with rheumatoid factor, unspecified Current visit: No Status: Chronic (5) Intracranial hemorrhage: Problem details: with micro hemorrhages Current visit: No Status: Acute (6) Cerebral amyloid angiopathy: Problem details: 03/31/2013 Large hemorrhagic stroke to the left temporal occipital area 07/03/2013 ischemic stroke right posterior sella Bellair hemisphere Current visit: No Status: Chronic Plan: Assessment/Plan Narrative: Acute urinary tract infection - Completed 3 days parental ciprofloxacin with improvement. Urine grew e. coli which is sensitive. - Temperature elevated on tylenol with tachycardia. Question if tachycardia was agitation. However given this episode will check urine and CBC today. Delirium - Most likely secondary to UTI. Behavior improved with treatment. Baseline is indeterminate after recent hemorrhagic CVA. No medications overnight. - Had wanted to try haldol however it has not been given. No need for lorazepam either overnight. Will have both haldol and lorazepam available. - Continue usual melatonin and gabapentin at bedtime as well if she will take these Hypertension - Very important to have blood pressure at goal which is less than 130/80 given recent hemorrhagic stroke, pressure have been variable, will try to use leg cuff to get more stable readings. - medications held today due to low pressures. Will reduce doses of amlodipine and losartan in half. Re-evaluate tomorrow. Rheumatoid arthritis - Continue leflunomide - chronic prednisone use, will make sure her protonix is IV so she is able to get this medication Pain? - possible sources are her pre-existing sciatica, rheumatoid arthritis, skin breakdown. Will try to get some topicals to try. DVT prophylaxis: contraindicated with her recent hemorrhagic stroke CODE status: full code, will discuss further with family as we discuss goals of care Disposition: Anticipate
[2018-02-08] MEDS: HALOPERIDOL 5 MG/ML VIAL IV (22:59)
[2018-02-09] VITALS (9 sets, daily range): BP systolic 124–136; BP diastolic 62–78; PULSE 82–109; RESP 14–18; TEMP 36.7; O2SAT 88–96
--- NOTE | 2018-02-09 05:15 | PC.NURSE ---
Pt is A and O x 0, VSS. LS clear, HR regular. Pt is completely confused and unable to answer questions. She appears to be hallucinating about her childhood, making comments about her parents. She took only a couple of bites of medications crushed and in pudding. She is aggressive and agitated. She did sleep a few hours on noc shift.
[2018-02-09 09:58] LABS: Add Manual Diff / Slide Review NO; Basophils Percent Auto 0.7 % (0-2); Hematocrit 25.6 % (36-46); Hemoglobin 8.5 g/dL (12.0-16.0); Mean Corpuscular HGB Conc 33.3 % (30-36); Mean Corpuscular Hemoglobin 31.5 PG (26-34); Mean Corpuscular Volume 94.6 fL (80-100); Monocytes Percent Auto 9.8 % (3-14); Neutrophils Absolute Auto 8400 /uL (3000-5900); Neutrophils Percent Auto 72.5 % (50-75); Platelet Count 417 X10^3/uL (150-400); Red Blood Cell Count 2.71 X10^6/uL (4.0-5.2); Red Cell Distribution Width 15.1 % (11.6-14.8); White Blood Cell Count 11.6 X10^3/uL (4.5-11.0)
[2018-02-09 10:22] LABS: BUN Creatinine Ratio 23.8 (6-22); Blood Urea Nitrogen 19 mg/dL (7-17); Calcium 8.4 mg/dL (8.4-10.2); Carbon Dioxide 30 mmol/L (22-32); Chloride 101 mmol/L (98-107); Estimated Glomerular Filt Rate > 60.0 mL/min (>60); Glucose 114 mg/dL (80-110); HEMOLYSIS < 15 (0-50); Potassium 3.6 mmol/L (3.4-5.1); Sodium 141 mmol/L (137-145)
[2018-02-09] MEDS: HALOPERIDOL 2 MG/ML 0.5 MG PO ×2 (11:41→19:45)
[2018-02-09] MEDS: PHENYTOIN ER 100 MG CAPSULE PO (11:43)
[2018-02-09] MEDS: AMLODIPINE 5 MG TABLET PO (11:48)
[2018-02-09] MEDS: predniSONE 5 MG TABLET PO (11:51)
--- NOTE | 2018-02-09 11:56 | CM.DPC ---
DCP Cont: Per MD, pt was given small dose of Haldol last night and 2 doses of Lorazepam and pt fairly sedated this morning. Will continue adjusting pt's bp meds as well as continue to provide some oral meds to confirm that pt will tolerate oral meds prior to d/c which may be tomorrow. Per PT, pt ambulates well when she is cooperative and not too heavily sedated and could be safe for d/c home with Dtrs mobility garner. SW met bedside with pt's two Dtrs Alysa and Alena and explained role and they confirmed that their preference is still for pt to d/c home with Alena with [facility] and they confirmed that [facility] will begin working with the pt at d/c for additional support. Dtr Alysa lives in [place] and will have to return to work soon. 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 Dtrs appreciative of the information and support. Plan: SW to follow for possible pt d/c home with Dtrs tomorrow and [facility] and new [facility] caregivers to start providing assist. [facility] will need Resume Orders and d/c summ faxed at discharge. HEATHER Fernandez
--- NOTE | 2018-02-09 12:25 | PT.IPTN ---
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) Encephalopathy, unspecified (02/04/18) Essential (primary) hypertension (02/04/18) Nontraumatic intracranial hemorrhage, unspecified (02/04/18) Cerebral amyloid angiopathy (02/04/18) Rheumatoid arthritis with rheumatoid factor, unspecified (02/04/18) Rheumatoid arthritis, unspecified (02/04/18) Acute cystitis without hematuria (02/04/18) Urinary tract infection, site not specified (02/04/18) Disorientation, unspecified (02/04/18) Abnormal weight loss (02/04/18) Physical Therapy Treatment Note M2 PT-IP Current Condition Start: 02/06/18 16:12 Freq: NEEDED Status: Active Protocol: Document 02/07/18 13:30 AB (Rec: 02/07/18 16:07 AB [id number]) Physical Therapy Current Condition Current Condition Evaluation Date 02/07/18 Treatment Diagnosis delirium, UTI; gen. weakness Onset Date 02/04/18 Precautions Other Precautions fall risk, agitation, bed alarm M3 PT-IP Subjective Start: 02/06/18 16:12 Freq: NEEDED Status: Active Protocol: Document 02/09/18 12:25 GGD (Rec: 02/09/18 13:15 GGD [email or web address]) Subjective Physical Therapy Visit Type Type Treatment Note Visit Start Time 12:10 Visit Stop Time 12:25 Total Visit Minutes 15 Physical Therapy Visit Comments Patient Comments Pt calling out, family in room . M4 PT-IP Mobility and Gait Start: 02/06/18 16:12 Freq: NEEDED Status: Active Protocol: Document 02/09/18 12:25 GGD (Rec: 02/09/18 13:15 GGD [email or web address]) PT-Transfer Assessment Sit to and From Stand Sit to and from Stand Minimal Assistance 1 Person Assistance Use of Upper Extremities Equipment Transfer Assistive Device Gait Belt Transfers Transfer Destination Chair Wheelchair Gait Assessment Gait Gait Assistance Required: Minimum Assistance 1 Person Assist Distance (Feet) 40 Able to Maintain Weight Bearing Status Yes During Gait Assistive Devices Assistive Device Gait Belt Gait Deviations General Gait Pattern Decreased Stride Length Decreased Feet Clearance Factors Limiting Gait Function Factors Limiting Gait Function Decreased Activity Tolerance Decreased Strength Difficulty Following Directions Incoordination Pain Poor Balance Poor Safety Awareness Comments Gait Comments Hand hold assist for gait. Transfer to W/C and then to chair in room. M5 PT-IP Objective Assessments Start: 02/06/18 16:12 Freq: NEEDED Status: Active Protocol: Document 02/07/18 13:30 AB (Rec: 02/07/18 16:07 AB [id number]) Orientation Orientation/Cognition Level of Alertness Alert Language Function Ability Expressive Aphagia Receptive Aphagia Word Finding Difficulties Safety Awareness Decreased Safety Awareness Memory Description Short Term Impaired Half-Way Impaired M6 PT-IP Treatment Start: 02/06/18 16:12 Freq: NEEDED Status: Active Protocol: Document 02/07/18 13:30 AB (Rec: 02/07/18 16:07 AB [id number]) Physical Therapy Treatment Other Treatments Other Treatment Performed educated pt's daughter regarding PT POC and pt's current mobility and safety concerns M7 PT-IP Assessment and Plan Start: 02/06/18 16:12 Freq: NEEDED Status: Active Protocol: Document 02/09/18 12:25 GGD (Rec: 02/09/18 13:15 GGD [email or web address]) PT Summary Assessment and Plan Summary Assessment Summary Pt able to follow simple single step cues. She did better with tactial cues vs verbal. She was able to progress her gait distance. She was unsteady with gait with small shuffle stables. She did have decrease in agitation after gentle touch. Frequency of Treatment Frequency Of Treatment Once a Day Treatment Plan Physical Therapy Treatment Plan Bed Mobility Training Transfer Training Gait Training Therapeutic Exercise Balance Retraining Discharge Planning Neuromuscular Re-ed Coordination Retraining Manual Therapy Recommendations To Nursing Amount of Assist Needed 2 Person Assist Discharge Recommendations PT Discharge Recommendations Home with 24/7 Assist Home Health SNF Rehab
--- NOTE | 2018-02-09 12:55 | PM.PN.1 ---
Subjective Date Patient Seen: 02/09/18 Time Patient Seen: 10:30 Interval history: This morning, the pt was intermittently dosing and calm during my conversation with her daughters. As per nursing and her daughters, the pt was quite agitated last night. She was frequently trashing in bed, throwing her sheets off her. She did calm slightly to verbal cues from her daughter, but not significantly. She received one dose of 0.5mg IV Haldol, which helped for a brief period of time. She also received a dose of Lorazepam, which did calm her as well. The did tear out her IV last night as well. Exam Vital Signs (past 8 hours): - 02/09/18 06:20 02/09/18 07:00 02/09/18 10:05 Temperature 98.0 F Pulse Rate 96 H Respiratory Rate 17 14 Blood Pressure 136/62 Pulse Oximetry 95 96 Oxygen Delivery Method Room Air Oxygen Flow Rate 0 Narrative Exam Narrative: General: NAD, resting in bed, appears very thin but well nourished Heart: Regular rate and rhythm, no murmurs appreciated Lungs: Clear to auscultation bilaterally, no wheezes, rales or rhonchi Abd: soft, normoactive bowel sounds, nontender, nondistended Extremities: Warm and well perfused, no edema Objective Imaging CT scan - head: Radiologist's impression: INDICATIONS: altered mental status, drop H/H, hx hemorrhagic stroke TECHNIQUE: Noncontrast 4.5 mm thick angled axial sections acquired from the foramen magnum to the vertex, with coronal and sagittal reformats. For radiation dose reduction, the following was used: automated exposure control, adjustment of mA and/or kV according to patient size. COMPARISON: [facility], CT, CT HEAD/BRAIN WO CON, 12/13/2017, 9:47. FINDINGS: Image quality: Excellent. CSF spaces: Basal cisterns are patent. No extra-axial fluid collections. The ventricles are symmetric in size and shape. Brain: There is interval decrease in size and density of the patient's known large intraparenchymal hematoma involving the right temporal region consistent with resolving hematoma. There is a mildly hyperdense area involving left parietal lobe measures approximately 1.9 x 1.5 x 1.6 cm in size with moderate amount of surrounding vasogenic edema suggestive of a subacute hematoma in this area new since previous study. Old infarction in right posterior parietal-occipital region is again seen with encephalomalacia. There is cerebral volume loss for age, with resultant ventricular and sulcal prominence. There are periventricular and deep white matter chronic small vessel ischemic changes. There is intracranial internal carotid artery atherosclerosis. Skull and face: Calvarium and visualized facial bones appear intact, without suspicious lesions. Sinuses: Visualized sinuses and mastoids are clear. IMPRESSION: 1. Interval decrease in size and density of previously noted large right temporal lobe hematoma, consistent with evolving hemorrhagic stroke. 2. Interval development of subacute appearing interfrontal hematoma involving left parietal lobe measures 1.9 x 1.5 x 1.6 cm in size with moderate amount of surrounding vasogenic edema. 3. No other new area of intracranial hemorrhage. No midline shift. Old infarction in right posterior parietal-occipital lobe with encephalomalacia. 4. Diffuse atrophy and extensive periventricular white matter microangiopathic changes. Dictated by: Lamonte Duarte M.D. on 02/08/2018 at 19:36 Labs Result Diagrams: 02/09/18 09:50 02/09/18 09:50 Labs: Laboratory Results - last 24 hr 02/08/18 02/08/18 02/08/18 13:53 14:15 14:15 WBC 15.2 H RBC 2.67 L Hgb 8.4 L Hct 25.4 L MCV 95.2 MCH 31.5 MCHC 33.1 RDW 15.2 H Plt Count 411 H Neut % (Auto) 78.2 H Lymph % (Auto) 9.1 L [place] % (Auto) 10.7 Eos % (Auto) 1.3 L Baso % (Auto) 0.7 Neut # (Auto) 27790 H Sodium 136 L Potassium 3.8 Chloride 96 L Carbon Dioxide 27 BUN 22 H Creatinine 1.10 H Estimated GFR 49.0 L BUN/Creatinine Ratio 20.0 Glucose 131 H Calcium 8.0 L Urine RBC None seen Urine WBC 1-5/hpf Ur Squamous Epith Cells 5-10 /hpf H Amorphous Sediment 1+ Urine Bacteria Few (2-10) H Hyaline Casts 1-5/lpf Granular Casts 0-1/lpf Urine Mucus 1+ H Ur Culture Indicated? Not Reportable Micro UA Comment Not Reportable 02/09/18 02/09/18 09:50 09:50 WBC 11.6 H RBC 2.71 L Hgb 8.5 L Hct 25.6 L MCV 94.6 MCH 31.5 MCHC 33.3 RDW 15.1 H Plt Count 417 H Neut % (Auto) 72.5 Lymph % (Auto) 15.0 L [place] % (Auto) 9.8 Eos % (Auto) 2.0 Baso % (Auto) 0.7 Neut # (Auto) 8400 H Sodium 141 Potassium 3.6 Chloride 101 Carbon Dioxide 30 BUN 19 H Creatinine 0.80 Estimated GFR > 60.0 BUN/Creatinine Ratio 23.8 H Glucose 114 H Calcium 8.4 Urine RBC Urine WBC Ur Squamous Epith Cells Amorphous Sediment Urine Bacteria Hyaline Casts Granular Casts Urine Mucus Ur Culture Indicated? Micro UA Comment Assessment & Plan (1) Acute encephalopathy: Current visit: Yes Status: Acute (2) Urinary tract infection: Qualifiers: Encounter type: Hematuria presence: without hematuria Indwelling urinary catheter type: Urinary tract infection type: acute cystitis Qualified Code(s): N30.00 - Acute cystitis without hematuria Current visit: Yes Status: Acute (3) Essential hypertension: Current visit: No Status: Chronic (4) Rheumatoid arthritis: Problem details: 04/2014: Leflunomide, prednisone 07/2013 started with rheum at [facility] methotrexate 03/2013 had hemorrhagic stroke followed by ischemic stroke Prednisone, plaquenil, orencia had been on enbrel and 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 and stopped Qualifiers: Laterality: Rheumatoid arthritis location: unspecified site Rheumatoid factor presence: with rheumatoid factor Qualified Code(s): M05.9 - Rheumatoid arthritis with rheumatoid factor, unspecified Current visit: No Status: Chronic (5) Intracranial hemorrhage: Problem details: with micro hemorrhages Current visit: No Status: Acute (6) Cerebral amyloid angiopathy: Problem details: 03/31/2013 Large hemorrhagic stroke to the left temporal occipital area 07/03/2013 ischemic stroke right posterior sella Bellair hemisphere Current visit: No Status: Chronic Plan: Assessment/Plan Narrative: 72yo woman with hypertension, rheumatoid arthritis, recent hemorrhagic CVA with hx of multiple prior hemorrhagic CVAs with cerebral amyloid angiopathy now with acute encephalopathy and delirium. 1) Acute urinary tract infection - Completed 3 days parental ciprofloxacin with improvement. Urine grew e. coli which is sensitive. - Repeat urine culture without growth thus far, infection treated 2) Delirium - waxing and waning as expected, last night with frequent outbursts - Most likely secondary to UTI. Behavior improved with treatment. Baseline is indeterminate after recent hemorrhagic CVA. - Continue usual melatonin and gabapentin at bedtime as well if she will take these - Will start scheduled Haldol PO today to try and get better baseline control, as pt is frequently needing PRN medications - Continue PRN Haldol and Lorazepam 3) Hemorrhagic CVAs: - Discussed CT results with Dr Lake, Stroke specialist in Neurology at [facility]. He reviewed CT findings. Believes left parietal findings are evolution of stroke earlier in December, and do not represent a new bleed. Overall, he has a poor prognosis for the pt with her frequent bleeding episodes - Recommends avoiding statin, TCAs, SSRIs - Recommends keeping very tight control of her BP, ideally systolic BPs 100-120 range 4) Hypertension: Requires tight control as above. Pt with some hypotension previously, however BP higher this morning. - Amlodipine to be given if BP > 120 systolic, continue Losartan at 1/2 dosing from prior 5) Rheumatoid arthritis - Continue leflunomide - chronic prednisone use, will continue Protonix Due to IV being pulled overnight, will attempt all medications PO today in anticipation of possible d/c in the next 1-2 days. DVT prophylaxis: contraindicated with her recent hemorrhagic stroke CODE status: full code currently, have been having ongoing discussions with PCP Dr Matt Dispo: Possible d/c tomorrow pending BP stable and pts outbursts stabilize on Haldol. Time Spent With Patient Time with patient: Greater than 35 minutes
--- NOTE | 2018-02-09 14:00 | OT.IP.TRT ---
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) Encephalopathy, unspecified (02/04/18) Essential (primary) hypertension (02/04/18) Nontraumatic intracranial hemorrhage, unspecified (02/04/18) Cerebral amyloid angiopathy (02/04/18) Rheumatoid arthritis with rheumatoid factor, unspecified (02/04/18) Rheumatoid arthritis, unspecified (02/04/18) Acute cystitis without hematuria (02/04/18) Urinary tract infection, site not specified (02/04/18) Disorientation, unspecified (02/04/18) Abnormal weight loss (02/04/18) Occupational Therapy Treatment Note M2 OT-IP Current Condition Start: 02/06/18 14:08 Freq: Status: Active Protocol: Document 02/06/18 09:58 PJM (Rec: 02/06/18 14:43 PJM [id number]) Occupational Therapy Current Condition Current Condition Evaluation Date 02/06/18 Treatment Diagnosis decreased cognition, self care , mobility with agitation Diagnosis Onset Date 02/04/18 Post Operative Precautions Other Precautions fall risk, agitation, bed alarm M3 OT- IP Subjective and Pain Start: 02/06/18 14:08 Freq: Status: Active Protocol: Document 02/09/18 13:53 [facility] (Rec: 02/09/18 14:00 [facility] [id number]) OT- Subjective Occupational Therapy Visit Type Type Treatment Note Visit Start Time 12:35 Visit Stop Time 13:05 Total Visit Minutes 30 Notes Pt's daughter present for therapy. OT Pain Assessment Pain When Pain Assessed At Rest Pain Present Pain Present Unable to Respond M4 OT- IP ADL's Start: 02/06/18 14:08 Freq: Status: Active Protocol: Document 02/09/18 13:53 [facility] (Rec: 02/09/18 14:00 [facility] [id number]) OT ADL-Toileting General Evaluation Toileting Ability Total Assistance Areas Needing Assistance Manage Clothing Perform Perineal Hygiene Devices Toileting Assistive Devices Commode Comments OT Toileting Comments Able to transfer pt with daughter to commode. Pt unable to stay wanting to use the toilet. Total assist for hygiene. M5 OT- IP IADL's Start: 02/06/18 14:08 Freq: Status: Active Protocol: Document 02/06/18 09:58 PJM (Rec: 02/06/18 14:43 PJM [id number]) OT-Instrumental Activities of Daily Living Deficits IADL Deficits Identified Deficits Home Safety Awareness Awareness of Need for Assistance at Home Decreased Awareness Ability to Problem Solve Emergency Unable to Problem Solve Situations Medication Management Medication Management Caregiver Administers Money Management Money Management Caregiver Provides Assistance Meal Preparation Meal Preparation Caregiver Provides Assist Mud Trucker Mud Trucker Caregiver Provides Assist Driving Driving Caregiver Provides Assist M6 OT- IP Functional Cognition Start: 02/06/18 14:08 Freq: Status: Active Protocol: Document 02/09/18 13:53 [facility] (Rec: 02/09/18 14:00 [facility] [id number]) Cognitive Factors Limiting Selfcare Function Cognitive Ability Level of Alertness Confusional State Attention Span Ability Unable to Focus Unable to Sustain Attention Memory Description Immediate Impaired Executive Function Ability Unable to Hold Focus Cognitive Comments Cognitive Assessment Comments Pt not able to follow commands to wash her hands with wash cloth even though wash cloth placed in her hands. Pt needs physical and tactile cues . M7 OT- IP Mobility and Balance Start: 02/06/18 14:08 Freq: Status: Active Protocol: Document 02/09/18 13:53 [facility] (Rec: 02/09/18 14:00 [facility] [id number]) OT-Transfer Assessment Sit to and From Stand Sit to and from Stand Moderate Assistance 2 Person Assistance Transfers Transfer Ability Moderate Assistance 2 Person Assistance Technique Transfer Destination Bedside Commode Wheelchair Transfer Technique Stand Step Pivot Devices Transfer Assistive Devices Gait Belt Comments Mobility Comments [place] assist to walk with pt to commode and wheelchair. Suggested as daughter states pt's legs tend to fall off from the wc leg rest temporarily place gait belt and pillow to help keep her legs from falling off the leg rests. M8 OT- IP Objective Assessments Start: 02/06/18 14:08 Freq: Status: Active Protocol: Document 02/09/18 13:53 [facility] (Rec: 02/09/18 14:00 [facility] [id number]) OT-Muscle Tone Assessment Comments Muscle Tone Comments Pt's right hand more resistive today. OT Sensation Assessment Comments Summary Comments Spoke to daughter about in addition to gentle massage, use of lotion, having various textured fabric so pt able to hold and explore to try to help occupy her attention. M9 OT- IP Assessment and Plan Start: 02/06/18 14:08 Freq: Status: Active Protocol: Document 02/08/18 15:15 [facility] (Rec: 02/08/18 15:19 [facility] [id number]) OT Summary Assessment and Plan Frequency of Treatment Frequency Of Treatment Once a Day Treatment Plan OT Treatment Plan ADL Training Functional Cognition Training Functional Mobility Patient/Family Education Discharge Planning Discharge Recommendations OT Discharge Recommendations Home with 30/10 Assist Other Discharge Recommendations vs Memory Care Unit; if pt d/c 's home, family will need additional paid caregiver assist to manage her care
--- NOTE | 2018-02-09 15:50 | PC.NURSE ---
Am shift Pt has been calling out intermittently this shift. Daughter at bedside, nelson, who is frequently the one the Pt calls out for. Seems comfortable when in bed, at rest. VSS, BP 136/84 Dr Perez rounded on Pt and would like tight control on BP, SBP 120, Norvasc given, held losarten, will continue to monitor BP closely. Pt is doing well with PT, up ambulating in hallway.
[2018-02-09] MEDS: GABAPENTIN 300 MG CAPSULE PO (16:09)
[2018-02-09] MEDS: ACETAMINOPHEN 325 MG TABLET 650 MG PO (16:09)
[2018-02-09] MEDS: MELATONIN 3 MG TABLET PO (20:02)
[2018-02-09] MEDS: LORazepam 2 MG/ML ORAL SOL 0.5 MG PO (20:58)
[2018-02-10] VITALS (9 sets, daily range): BP systolic 124–144; BP diastolic 57–85; PULSE 85–108; RESP 16–20; TEMP 36.5; O2SAT 94–96
[2018-02-10] MEDS: LORazepam 2 MG/ML ORAL SOL 0.5 MG PO ×3 (01:08→20:58)
[2018-02-10] MEDS: HALOPERIDOL 2 MG/ML 1 MG PO ×5 (01:38→19:10)
--- NOTE | 2018-02-10 03:59 | PC.NURSE ---
Pt is A and O to ), VSS. She continues to be unhappy, restless and fearful, calling out most of the shift. Pt is not eating well and has slept little. She responds to stimulus in a nonsensical way and defensively. PO liquid medications helpful. LS clear, S1, S2, voiding incontinently in brief, frequently.
[2018-02-10] MEDS: PANTOPRAZOLE 40 MG PACKET PO (06:52)
[2018-02-10] MEDS: HALOPERIDOL 2 MG/ML 0.5 MG PO (08:52)
[2018-02-10] MEDS: predniSONE 5 MG TABLET PO (08:52)
[2018-02-10] MEDS: LEFLUNOMIDE 20 MG TABLET PO (08:53)
[2018-02-10] MEDS: POTASSIUM CHLORIDE 20 MEQ TAB 40 MEQ PO ×2 (08:53→19:10)
[2018-02-10] MEDS: LOSARTAN 50 MG TABLET PO (09:25)
[2018-02-10] MEDS: AMLODIPINE 5 MG TABLET PO (09:25)
[2018-02-10] MEDS: ACETAMINOPHEN 325 MG TABLET 650 MG PO ×2 (09:26→16:56)
--- NOTE | 2018-02-10 09:26 | PC.NURSE ---
AM shift Pt had numerous PRN doses overnight, nursing felt quite agitated and when updated by daughter, she reports, shes been worse, so it's hard to say it was a bad night, she was restless but she's been worse BP slightly elevated this AM, discussed finding with Dr Jimenez, will administer Amlodipine and Losartan today and monitor closely. Routine Haldol will increase to 1mg BID and hope this decreases need for PRN dosing. Daughter at bedside.
--- NOTE | 2018-02-10 10:32 | P.PN_ITS ---
Subjective Date Patient Seen: 02/10/18 Time Patient Seen: 09:05 Interval history: As per the pts daughter, the pt was very restless last night. She did not call out as much as prior nights, however. Overall, they felt that she seemed improved from the prior evening. As per nursing, the pt was very difficult to manage through the evening. She received 3 doses of PRN Lorazepam and 3 doses of PRN Haldol throughout the evening/night. This morning , the pt has been very calm and cooperative thus far. Her daughter is primarily concerned about her BP management at this point. Exam Vital Signs (past 8 hours): - 02/10/18 05:58 02/10/18 07:00 02/10/18 09:16 Pulse Rate 108 H Respiratory Rate 16 Blood Pressure 144/85 H Pulse Oximetry 96 94 02/10/18 09:25 Pulse Rate 104 H Respiratory Rate Blood Pressure 144/85 H Pulse Oximetry Oxygen Delivery Method Room Air Oxygen Flow Rate 0 Narrative Exam Narrative: General: NAD, resting in chair with chin tucked towards chest, appears very thin but well nourished Heart: Regular rate and rhythm, no murmurs appreciated Lungs: Clear to auscultation bilaterally, no wheezes, rales or rhonchi Abd: soft, normoactive bowel sounds, nontender, nondistended Extremities: Warm and well perfused, no edema Objective Labs Result Diagrams: 02/09/18 09:50 02/09/18 09:50 Assessment & Plan (1) Acute encephalopathy: Current visit: Yes Status: Acute (2) Urinary tract infection: Qualifiers: Encounter type: Hematuria presence: without hematuria Indwelling urinary catheter type: Urinary tract infection type: acute cystitis Qualified Code(s): N30.00 - Acute cystitis without hematuria Current visit: Yes Status: Acute (3) Essential hypertension: Current visit: No Status: Chronic (4) Rheumatoid arthritis: Problem details: 04/2014: Leflunomide, prednisone 07/2013 started with rheum at [facility] methotrexate 03/2013 had hemorrhagic stroke followed by ischemic stroke Prednisone, plaquenil, orencia had been on enbrel and 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 and stopped Qualifiers: Laterality: Rheumatoid arthritis location: unspecified site Rheumatoid factor presence: with rheumatoid factor Qualified Code(s): M05.9 - Rheumatoid arthritis with rheumatoid factor, unspecified Current visit: No Status: Chronic (5) Intracranial hemorrhage: Problem details: with micro hemorrhages Current visit: No Status: Acute (6) Cerebral amyloid angiopathy: Problem details: 03/31/2013 Large hemorrhagic stroke to the left temporal occipital area 2013 ischemic stroke right posterior sella Bellair hemisphere Current visit: No Status: Chronic Plan: Assessment/Plan Narrative: 72yo woman with hypertension, rheumatoid arthritis, recent hemorrhagic CVA with hx of multiple prior hemorrhagic CVAs with cerebral amyloid angiopathy now with acute encephalopathy and delirium. 1) Acute urinary tract infection - Completed 3 days parental ciprofloxacin with improvement. Urine grew e. coli which is sensitive. - Repeat urine culture without growth, infection treated 2) Delirium - waxing and waning as expected, last night with fewer outburst but moving in bed a lot. Received multiple doses PRN Lorazepam and Haldol - Most likely secondary to UTI. Behavior improved with treatment. Baseline is indeterminate after recent hemorrhagic CVA. - Continue usual melatonin and gabapentin at bedtime as well if she will take these - Increase to 1mg PO Haldol BID - Continue PRN Haldol and Lorazepam 3) Hemorrhagic CVAs: - Discussed CT results with Dr Lake, Stroke specialist in Neurology at [facility] the evening of 02/08/18. He reviewed CT findings. Believes left parietal findings are evolution of stroke earlier in December, and do not represent a new bleed. Overall, he has a poor prognosis for the pt with her frequent bleeding episodes - Recommends avoiding statin, TCAs, SSRIs - Recommends keeping very tight control of her BP, ideally systolic BPs 100-120 range - Hx of seizures while at [facility]. Will continue Phenytoin. Pt did not take pill yesterday, was found in bed this morning. Working with pharmacy to determine alternative dosing strategies. 4) Hypertension: Requires tight control as above. Pt with some hypotension previously, however BP remaining higher than goal. Losartan was not administered by nursing yesterday. - Continue Amlodipine, Losartain - Will restart Labetalol at 1/2 dosing, 50mg BID 5) Rheumatoid arthritis - Continue leflunomide - chronic prednisone use, will continue Protonix Due to IV being pulled yesterday, will attempt to keep all medications PO form for now, anticipating discharge soon. DVT prophylaxis: contraindicated with her recent hemorrhagic stroke CODE status: full code currently, have been having ongoing discussions with PCP Dr Matt Dispo: Plan for d/c tomorrow assuming BP remains in acceptable range. Time Spent With Patient Time with patient: Greater than 35 minutes
[2018-02-10] MEDS: PHENYTOIN 50 MG CHEW TAB PO ×2 (13:36→19:10)
--- NOTE | 2018-02-10 14:53 | PT.IPTN ---
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) Encephalopathy, unspecified (02/04/18) Essential (primary) hypertension (02/04/18) Nontraumatic intracranial hemorrhage, unspecified (02/04/18) Cerebral amyloid angiopathy (02/04/18) Rheumatoid arthritis with rheumatoid factor, unspecified (02/04/18) Rheumatoid arthritis, unspecified (02/04/18) Acute cystitis without hematuria (02/04/18) Urinary tract infection, site not specified (02/04/18) Disorientation, unspecified (02/04/18) Abnormal weight loss (02/04/18) Physical Therapy Treatment Note M2 PT-IP Current Condition Start: 02/06/18 16:12 Freq: NEEDED Status: Active Protocol: Document 02/07/18 13:30 AB (Rec: 02/07/18 16:07 AB [id number]) Physical Therapy Current Condition Current Condition Evaluation Date 02/07/18 Treatment Diagnosis delirium, UTI; gen. weakness Onset Date 02/04/18 Precautions Other Precautions fall risk, agitation, bed alarm M3 PT-IP Subjective Start: 02/06/18 16:12 Freq: NEEDED Status: Active Protocol: Document 02/10/18 13:30 LJ (Rec: 02/10/18 14:53 LJ [id number]) Subjective Physical Therapy Visit Type Type Treatment Note Visit Start Time 13:30 Visit Stop Time 13:55 Total Visit Minutes 25 Notes Family in room with pt on commode next to bed. Pt agitated and trying to get up from commode Physical Therapy Visit Comments Patient Comments Pt daughter states pt transferred several times yesterday but seems weaker today. M4 PT-IP Mobility and Gait Start: 02/06/18 16:12 Freq: NEEDED Status: Active Protocol: Document 02/10/18 13:30 LJ (Rec: 02/10/18 14:53 LJ [id number]) PT-Transfer Assessment Sit to and From Stand Sit to and from Stand Maximum Assistance 1 Person Assistance Equipment Transfer Assistive Device Gait Belt Transfers Transfer Destination Bed Comments Mobility Comments Pt unable to stand fully to transfer to bed. Required max assist of MINI BAR ATTENDANT and several attempts d/t pt agitation and falling back onto commode and buckling forward. Gait Assessment Comments Gait Comments Unable at this time M5 PT-IP Objective Assessments Start: 02/06/18 16:12 Freq: NEEDED Status: Active Protocol: Document 02/07/18 13:30 AB (Rec: 02/07/18 16:07 AB [id number]) Orientation Orientation/Cognition Level of Alertness Alert Language Function Ability Expressive Aphagia Receptive Aphagia Word Finding Difficulties Safety Awareness Decreased Safety Awareness Memory Description Short Term Impaired Usp Impaired M6 PT-IP Treatment Start: 02/06/18 16:12 Freq: NEEDED Status: Active Protocol: Document 02/07/18 13:30 AB (Rec: 02/07/18 16:07 AB [id number]) Physical Therapy Treatment Other Treatments Other Treatment Performed educated pt's daughter regarding PT POC and pt's current mobility and safety concerns M7 PT-IP Assessment and Plan Start: 02/06/18 16:12 Freq: NEEDED Status: Active Protocol: Document 02/10/18 13:30 LJ (Rec: 02/10/18 14:53 LJ [id number]) PT Summary Assessment and Plan Summary Assessment Summary Pt agitated and attempting to bite. Max assist x 1 to return pt to bed. Pt attempted to get up but settled down after a few minutes. Left with family at bedside. Frequency of Treatment Frequency Of Treatment Once a Day Treatment Plan Physical Therapy Treatment Plan Bed Mobility Training Transfer Training Gait Training Therapeutic Exercise Balance Retraining Discharge Planning Neuromuscular Re-ed Coordination Retraining Manual Therapy Recommendations To Nursing Amount of Assist Needed 2 Person Assist Discharge Recommendations PT Discharge Recommendations Home with 24/7 Assist Home Health SNF Rehab
[2018-02-10] MEDS: LABETALOL 100 MG TABLET 50 MG PO ×2 (14:55→19:09)
[2018-02-10] MEDS: GABAPENTIN 300 MG CAPSULE PO (16:56)
[2018-02-10] MEDS: MELATONIN 3 MG TABLET PO (19:10)
[2018-02-11] VITALS (7 sets, daily range): BP systolic 137–170; BP diastolic 58–92; PULSE 85–106; RESP 18–20; TEMP 36.3–36.5; O2SAT 92–96
[2018-02-11] MEDS: HALOPERIDOL 2 MG/ML 1 MG PO ×3 (03:13→05:27)
[2018-02-11] MEDS: LORazepam 2 MG/ML ORAL SOL 0.5 MG PO (03:28)
[2018-02-11] MEDS: PANTOPRAZOLE 40 MG PACKET PO (05:27)
[2018-02-11] MEDS: AMLODIPINE 5 MG TABLET PO (06:05)
[2018-02-11] MEDS: LABETALOL 100 MG TABLET 50 MG PO (06:05)
--- NOTE | 2018-02-11 06:26 | PC.NURSE ---
Patient drowsy and mostly resting from midnight until 0300, then attempts to get OOB and yells frequently. PO Haldol elixer and PO Ativan elixer given per prn orders, but patient spits some of it out. BP 141/58 at midnight, 170/85 at 0500, while patient was eating pudding, attempted to give PO antihypertensive meds, but she would not open mouth any longer. Incontinent urine and stool x1, assist up to BS, for another BM, cooperative with lab draw second attempt from advanced practice nurse psychotherapist.
[2018-02-11 06:52] LABS: Add Manual Diff / Slide Review NO; Basophils Percent Auto 0.7 % (0-2); Eosinophils Percent Auto 3.8 % (2-4); Hematocrit 25.9 % (36-46); Hemoglobin 8.5 g/dL (12.0-16.0); Mean Corpuscular HGB Conc 32.9 % (30-36); Mean Corpuscular Hemoglobin 31.7 PG (26-34); Mean Corpuscular Volume 96.3 fL (80-100); Monocytes Percent Auto 6.5 % (3-14); Neutrophils Absolute Auto 7300 /uL (3000-5900); Platelet Count 426 X10^3/uL (150-400); Red Blood Cell Count 2.69 X10^6/uL (4.0-5.2); White Blood Cell Count 9.7 X10^3/uL (4.5-11.0)
[2018-02-11 07:00] LABS: BUN Creatinine Ratio 17.5 (6-22); Blood Urea Nitrogen 14 mg/dL (7-17); Calcium 8.7 mg/dL (8.4-10.2); Carbon Dioxide 26 mmol/L (22-32); Chloride 103 mmol/L (98-107); Estimated Glomerular Filt Rate > 60.0 mL/min (>60); Glucose 198 mg/dL (80-110); HEMOLYSIS < 15 (0-50); Potassium 3.6 mmol/L (3.4-5.1); Sodium 142 mmol/L (137-145)
[2018-02-11] MEDS: LOSARTAN 50 MG TABLET PO (08:40)
[2018-02-11] MEDS: POTASSIUM CHLORIDE 20 MEQ TAB 40 MEQ PO (08:40)
[2018-02-11] MEDS: PHENYTOIN 50 MG CHEW TAB PO (08:40)
[2018-02-11] MEDS: LEFLUNOMIDE 20 MG TABLET PO (08:40)
[2018-02-11] MEDS: predniSONE 5 MG TABLET PO (08:40)
--- NOTE | 2018-02-11 08:46 | PM.DS.1 ---
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 Since hospital discharge patient has been very agitated at home, progressively worse in the last three days. Her adult daughters have been her primary caregivers and with her around the clock. They thought that bringing her home would be comforting however she has not done well. It has been difficult to have her eat and drink consistently though she is taking some. She is up and down all the time and only sleeps for a few hours the first part of the night. Typically she wakes between two and four in the morning and is up the rest of the day except for periodic naps. She is very impulsive. In the last three days daughters have been having increasing difficulty getting the patient to take her meds. She last had her bedtime Seroquel three or four nights ago though daughter's questions whether it was helpful. Last morning medications were the day prior to admission. She has had what appears to be nausea as well as diarrhea though no fevers or vomiting. She has intermittently complained of abdominal pain. Daughters feel she is hallucinating frequently and reaching for objects that are not there. She is restless and irritable. Daughter states that she had a UTI while hospitalized at [facility] and became acutely delirious. Delirium cleared somewhat with treatment of the UTI. They are concerned she has a UTI again. Daughters are also concerned about poor oral intake and dehydration. From a neurologic standpoint, daughters note that her speech has improved when she is coherent and her gait has improved as well. No new focal neurologic deficits from family's perspective. Discharge Providers Date of admission: 02/04/18 18:42 Primary care physician: Ailin Chisholm DO Consults: 02/04/18 18:39 Consult to Physician Routine Comment: Consulting Provider: Caitlyn May Reason for consultation: admission Has provider been notified: Yes 02/04/18 21:12 Consult to Psychiatric Aides Teacher Routine Comment: 02/06/18 08:26 Consult to Dietitian, Adult Routine Comment: Reason For Exam: malnutrition 02/06/18 08:27 Consult to Physical Therapy Evaluate & Treat Comment: post CVA mobility Physician Instructions: Evaluate and Treat Consult to Speech Therapy Evaluate & Treat Comment: post CVA Physician Instructions: Evaluate and treat 02/06/18 08:28 Consult to Occupational Therapy Evaluate & Treat Comment: post CVA Physician Instructions: Evaluate and treat 02/06/18 08:29 Consult to Physician Routine Comment: Consulting Provider: Jesus Alberto Guevara Reason for consultation: delirium Has provider been notified: Yes Discharge provider: Ailin Chisholm DO Discharge Date: 02/11/18 Summary Discharge Diagnosis: Metabolic encephalopathy Urinary tract infection Post hemorrhagic CVA status, evolving Seizure disorder Expressive and receptive aphasia Visual field loss Hypertension Rheumatoid arthritis Sciatica Anemia of chronic disease Protein calorie malnutrition Hospital Course: Patient had been recovering from 2 significant hemorrhagic strokes, one the right temporal and one on the left. She has required 24/7 supervision at home. Daughters report seroquel was not effective to manage patients agitation. This worsened and she was brought to the emergency department. This was worsened by her urinary tract infection which was treated with parental ciprofloxacin for 3 days with improvement. Repeat urine analysis without signs of infection. There was concern for possible new CVA and a CT scan was obtained and reviewed with neurology at [facility]. No evidence of new lesions. Previous left sided CVA was evolving. Stressed poor prognosis and the importance of blood pressure control. Patient's blood pressures had been 100 and less systolic so home medications were reduced but as her infection improved her blood pressures increased and her home medication regimen was reinstated at discharge. She should not take any anticoagulation medications, SSRI's or statins. Physical therapy, speech and occupational therapy all evaluted patient. Suggestions were made for improving patient's ability to function at home and she will continue to receive care with home health. She did not do well with a trial of olanzapine but seemed to do better with haldol and lorazepam. It's going to be a delicate balance to be able to keep her calm and not overly sedated. This will be an ongoing issue and we will continue to make adjustments at follow up. Her QTc interval tolerated the haldol and we will check again in clinic. She has history of anxiety and depression however the TCA and SSRI's are now off limits secondary to their antiplatelet effect. She has anemia which is likely multifactorial. She did have a single drop after admission which was attributed to parental fluids. Nutrition is going to be problematic and family will need to be diligent to maintain proper nutrition and hydration. Prior to her CVA she had been dealing with sciatica which was responsive to gabapentin. Family had thought it was sedating and I have suggested they try giving the lower dose during the day at home. Given patient's difficulty with communication pain control is going to be important. Her medications for rheumatoid arthritis were continued. She developed a seizure disorder and has been treated with fairly low dose phenytoin. This was continued here. Her levels were subtherapeutic but she has not had any further seizures. Status at Discharge Cognitive/behavioral status at discharge: Cognitively impaired and unable to care for self due to aphasia and visual field losses Functional status at discharge: uses cane/walker (As well as caregiver assist for guidance due to visual field loss) Overall status at discharge: patient is back to baseline (post stroke baseline) Time Spent with Patient Greater than 30 minutes Exam Vital Signs (past 8 hours): - 02/11/18 00:55 02/11/18 05:11 02/11/18 06:05 Temperature 97.4 F L 97.4 F L Pulse Rate 85 98 H 98 H Respiratory Rate 18 20 Blood Pressure 141/58 H 170/85 H 170/85 H Pulse Oximetry 94 96 Oxygen Delivery Method Room Air Oxygen Flow Rate 0 Const General: anxious, combative (intermittently) and frail appearing Nutritional Appearance: thin Orientation: alert, awake, not oriented x3 and oriented to person [facility] Head: normal to inspection Eyes Pupils: anisocoria left pupil size greater than right Resp Effort & Inspection: normal respiratory effort, no cough, no pursed lip breathing and no retractions Auscultation: clear to auscultation bilaterally Cardio Rate: regular rate Rhythm: regular rhythm Heart Sounds: S1 normal and S2 normal GI Palpation: soft Neuro General: moves all extremities Cognition: abnormal cognition Speech: abnormal speech, expressive aphasia and receptive aphasia Gait: shuffling Motor: muscle tone abnormal Objective Labs Result Diagrams: 02/11/18 06:42 02/11/18 06:42 Labs: Laboratory Results - last 24 hr 02/11/18 02/11/18 06:42 06:42 WBC 9.7 RBC 2.69 L Hgb 8.5 L Hct 25.9 L MCV 96.3 MCH 31.7 MCHC 32.9 RDW 15.0 H Plt Count 426 H Neut % (Auto) 75.0 Lymph % (Auto) 14.0 L [place] % (Auto) 6.5 Eos % (Auto) 3.8 Baso % (Auto) 0.7 Neut # (Auto) 7300 H Sodium 142 Potassium 3.6 Chloride 103 Carbon Dioxide 26 BUN 14 Creatinine 0.80 Estimated GFR > 60.0 BUN/Creatinine Ratio 17.5 Glucose 198 H Calcium 8.7 Discharge Plan Discharge Plan Patient Disposition: Home Health Service Transfer to: [facility] Discharge comment: Resume home health services. Start visiting angels support. May use 100 mg gabapentin during the day. Discharge Med Rec/Prescriptions Prescriptions: New haloperidol lactate 2 mg/mL Concentrate 1 mg PO BID Qty: 30 RF: 1 lorazepam [Lorazepam Intensol] 2 mg/mL Concentrate 0.5 mg PO Q4HR PRN (Reason: Anxiety) Qty: 30 RF: 0 phenytoin [Dilantin Infatabs] 50 mg Tablet,Chewable 100 mg PO DAILY Qty: 60 RF: 1 Continue omeprazole 20 mg capsule,delayed release(DR/EC) 20 mg PO QDAY Qty: 90 RF: 3 potassium chloride [Klor-Con M20] 20 mEq tablet,ER particles/crystals 40 meq PO BID Qty: 360 RF: 3 wheel chair calf pads Qty: 2 RF: 0 leflunomide 20 mg tablet 20 mg PO DAILY RF: 0 gabapentin 300 mg capsule 300 mg PO QPM RF: 0 prednisone 1 mg tablet RF: 0 hydrocortisone 1 % cream 1 applic Topical BID PRN (Reason: Itching) RF: 0 labetalol 100 mg tablet 1 tab PO BID RF: 0 losartan 50 mg Tablet 1 tab PO QAM RF: 0 sennosides [senna] 8.6 mg Tablet 17.2 mg PO BID PRN (Reason: Constipation) RF: 0 acetaminophen 325 mg Tablet 650 mg PO Q6H PRN (Reason: pain) RF: 0 prednisone 5 mg tablet 5 mg PO QAM RF: 0 melatonin 3 mg Tablet 3 mg PO BEDTIME RF: 0 amlodipine 5 mg Tablet 10 mg PO QAM RF: 0 magnesium oxide 400 mg (241.3 mg magnesium) Tablet 400 mg PO DAILY RF: 0 calcium carbonate 500 mg calcium (1,250 mg) Tablet,Chewable 500 mg PO TID PRN (Reason: Heartburn) RF: 0 magnesium hydroxide 2,400 mg/10 mL Suspension 10 ml PO Q OTHER DAY RF: 0 triamcinolone acetonide 0.1 % cream Topical BID PRN (Reason: Rash) RF: 0 Changed spironolactone 25 mg tablet 25 mg PO QAM Qty: 0 RF: 0 Discontinued quetiapine 25 mg tablet 37.5 mg PO QPM RF: 0 phenytoin sodium extended 100 mg capsule 1 cap PO DAILY RF: 0 prednisone 20 mg tablet RF: 0 quetiapine 25 mg tablet 12.5 mg PO BEDTIME PRN (Reason: Agitation) RF: 0 ondansetron 4 mg tablet,disintegrating 1 tab PO Q8H PRN (Reason: Nausea And Vomiting) RF: 0 Follow up/Referrals: Ailin Chisholm DO [Primary Care Provider] - 1 Week (*please call & schedule follow up appointment with dr chisholm [phone]) Visit Report/Discharge Packet Instructions: Delirium, Encephalopathy Visit Report Forms: Stroke Signs & Symptoms Discharge Data Primary Care Provider: Ailin Chisholm Attending Provider: Ailin Chisholm Admit Date/Time: 02/04/18 18:42 Discharges patient from system. Discharge Date/Time: 02/11/18 14:15
--- NOTE | 2018-02-11 09:15 | CM.DPC ---
DCP/continued: Reviewed chart. Patient seen by PCP/Dr. Matt this AM. D/C summary written but no order for patient to discharge yet. Spoke with with RN whom states that Dr. Matt might be coming back later today to completed discharge or watch patient another day. MANAGER UNDERWRITING placed call to [facility], spoke with Sanna. She confirms that patient on service. Notified Sanna that patient might discharge today or tomorrow. Order to resume care obtained and d/c summary faxed to [facility] attn: Sanna at [phone]. Notified Sanna that CM steam engineer would call her as soon as discharge order placed/confirmed. P: Home with family support, caregivers, and [facility]. HEATHER Avila
--- NOTE | 2018-02-11 11:05 | PC.NURSE ---
PATIENT SHIFTS SELF AROUND SIDEWAYS IN BED SHE IS RESTLESS AT TIMES AND NEEDS BOOSTING UP. SHE DID APPEAR HUNGRY THIS AM. WOULD OPEN HER MOUTH FOR MORE BITES. DID TAKE HER MEDS CRUSHED IN PUDDING WITH ALTERNATING BITES OF SOLID FOODS. SHE WAS ABLE TO FEED HERSELF SOME CONDE, MUFFIN AND EGG WHEN PLACED INTO HER LEFT HAND. ABLE TO HOLD CUP AND DRINK WATER WITHOUT STRAW WITH GUIDANCE TO FIND HER MOUTH. NO DIFFICULTY SWALLOWING. CALLS OUT AT TIMES. DIFFICULTLY FOLLOWING DIRECTIONS DURING AMBULATION. INCONT. OF URINE THIS AM. ATTEMPTED COMMODE WITH NO RESULTS. FAMILY ARE PLANNING TO TAKE PATIENT HOME TODAY.
--- NOTE | 2018-02-11 12:26 | OT.IP.TRT ---
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) Encephalopathy, unspecified (02/04/18) Essential (primary) hypertension (02/04/18) Nontraumatic intracranial hemorrhage, unspecified (02/04/18) Cerebral amyloid angiopathy (02/04/18) Rheumatoid arthritis with rheumatoid factor, unspecified (02/04/18) Rheumatoid arthritis, unspecified (02/04/18) Acute cystitis without hematuria (02/04/18) Urinary tract infection, site not specified (02/04/18) Disorientation, unspecified (02/04/18) Abnormal weight loss (02/04/18) Occupational Therapy Treatment Note M2 OT-IP Current Condition Start: 02/06/18 14:08 Freq: Status: Active Protocol: Document 02/06/18 09:58 PJM (Rec: 02/06/18 14:43 PJ [id number]) Occupational Therapy Current Condition Current Condition Evaluation Date 02/06/18 Treatment Diagnosis decreased cognition, self care , mobility with agitation Diagnosis Onset Date 02/04/18 Post Operative Precautions Other Precautions fall risk, agitation, bed alarm M3 OT- IP Subjective and Pain Start: 02/06/18 14:08 Freq: Status: Active Protocol: Document 02/11/18 12:18 [facility] (Rec: 02/11/18 12:26 [facility] [id number]) OT- Subjective Occupational Therapy Visit Type Type Treatment Note Visit Start Time 11:43 Visit Stop Time 11:56 Total Visit Minutes 13 Notes Pt's daughters present for therapy session. Pt appears restless and trying to get out of the recliner. OT Pain Assessment Pain When Pain Assessed At Rest Pain Present Pain Present Unable to Respond M5 OT- IP IADL's Start: 02/06/18 14:08 Freq: Status: Active Protocol: Document 02/06/18 09:58 PJM (Rec: 02/06/18 14:43 [facility] [id number]) OT-Instrumental Activities of Daily Living Deficits IADL Deficits Identified Deficits Home Safety Awareness Awareness of Need for Assistance at Home Decreased Awareness Ability to Problem Solve Emergency Unable to Problem Solve Situations Medication Management Medication Management Caregiver Administers Money Management Money Management Caregiver Provides Assistance Meal Preparation Meal Preparation Caregiver Provides Assist Real Estate Teacher Real Estate Teacher Caregiver Provides Assist Driving Driving Caregiver Provides Assist M6 OT- IP Functional Cognition Start: 02/06/18 14:08 Freq: Status: Active Protocol: Document 02/11/18 12:18 [facility] (Rec: 02/11/18 12:26 [facility] [id number]) Cognitive Factors Limiting Selfcare Function Cognitive Ability Level of Alertness Confusional State Patient Orientation Name Attention Span Ability Unable to Focus Unable to Sustain Attention Cognitive Comments Cognitive Assessment Comments Pt needing tactile cue to redirect her to be able to walk back into the room and sit down to the recliner. M7 OT- IP Mobility and Balance Start: 02/06/18 14:08 Freq: Status: Active Protocol: Document 02/11/18 12:18 [facility] (Rec: 02/11/18 12:26 [facility] [id number]) OT-Transfer Assessment Sit to and From Stand Sit to and from Stand Contact Guard Assistance 1 Person Assistance Transfers Transfer Ability Minimal Assistance 1 Person Assistance Technique Transfer Destination Chair Transfer Technique Stand Step Pivot Devices Transfer Assistive Devices Gait Belt Comments Mobility Comments MEKORYUK assist x 1 today from CGA to YOLIS to walk in the room, out of the room and needing more assist to make sure pt able to turn all the way around before sitting. OT- Balance Assessment Sitting Balance and Reactions Static Sitting Balance Ability Fair Dynamic Sitting Balance Ability Poor Standing Balance and Reactions Static Standing Balance Ability Poor Dynamic Standing Balance Ability Poor M9 OT- IP Assessment and Plan Start: 02/06/18 14:08 Freq: Status: Active Protocol: Document 02/11/18 12:18 [facility] (Rec: 02/11/18 12:26 [facility] [id number]) OT Summary Assessment and Plan Summary Progress Towards Goals Slow Progress due to Medical Issues Slow Progress due to Cognition Assessment Summary Pt still needing 24/7 assist and varies from 1-2 person assist pending pt's fatigue and ability to understand what is going on. Pt's family planning on taking her home for 24/7 care and home health. Pt's family states will have alarms in place and babay monitor for pt. Goals Days to Meet Goals 2 Frequency of Treatment Frequency Of Treatment Once a Day Treatment Plan OT Treatment Plan ADL Training Functional Cognition Training Functional Mobility Patient/Family Education Discharge Planning Discharge Recommendations OT Discharge Recommendations Home with 24/7 Assist Other Discharge Recommendations vs Memory Care Unit; if pt d/c 's home, family will need additional paid caregiver assist to manage her care
--- NOTE | 2018-02-11 13:30 | PT.IPTN ---
Addendum entered and electronically signed by Sonya Barahona, PT 02/11/18 14:21: I certify I directly supervised and guided this session. 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) Encephalopathy, unspecified (02/04/18) Essential (primary) hypertension (02/04/18) Nontraumatic intracranial hemorrhage, unspecified (02/04/18) Cerebral amyloid angiopathy (02/04/18) Rheumatoid arthritis with rheumatoid factor, unspecified (02/04/18) Rheumatoid arthritis, unspecified (02/04/18) Acute cystitis without hematuria (02/04/18) Urinary tract infection, site not specified (02/04/18) Disorientation, unspecified (02/04/18) Abnormal weight loss (02/04/18) Physical Therapy Treatment Note M2 PT-IP Current Condition Start: 02/06/18 16:12 Freq: NEEDED Status: Active Protocol: Document 02/07/18 13:30 AB (Rec: 02/07/18 16:07 AB [id number]) Physical Therapy Current Condition Current Condition Evaluation Date 02/07/18 Treatment Diagnosis delirium, UTI; gen. weakness Onset Date 02/04/18 Precautions Other Precautions fall risk, agitation, bed alarm M3 PT-IP Subjective Start: 02/06/18 16:12 Freq: NEEDED Status: Active Protocol: Document 02/11/18 11:38 (Rec: 02/11/18 11:58 [id number]) Subjective Physical Therapy Visit Type Type Treatment Note Visit Start Time 10:29 Visit Stop Time 10:48 Total Visit Minutes 19 Number of MARINE REPORTER Visits 0 Physical Therapy Visit Comments Patient Comments Pt's 2 daughters are present this session. Pt somewhat agitated, but not combative according to daughter. M4 PT-IP Mobility and Gait Start: 02/06/18 16:12 Freq: NEEDED Status: Active Protocol: Document 02/11/18 11:38 (Rec: 02/11/18 11:58 [id number]) PT-Bed Mobility Assessment Scooting Scooting to Edge of Bed Standby Assistance PT-Transfer Assessment Sit to and From Stand Sit to and from Stand Maximum Assistance 2 Person Assistance Equipment Transfer Assistive Device None Gait Belt Front Wheeled Walker Orthotic/Prosthetic Devices or Brace: No Transfers Transfer Destination Chair Comments Mobility Comments Attempted sit > stand with fww , maxA x2 and max cues. Despite cuing, pt handhold on fww is unsafe and pt requires assist for fww management and pt becomes increasingly agitated. sit > stand with no AD and TRADER FIXED INCOME of 1 in front and minAx1 pt is more willing to move and less agitated. Stand > sit pt very impulsive, as soon as she sees the chair or thinks one is behind her she begins to slump uncontrolled to sit. Max cues and max Ax2 required for controlled stand > sit. Discussed and demonstrated good body mechanics to daughters for assisting with sit <> stand. Gait Assessment Gait Gait Assistance Required: Moderate Assistance Maximum Assistance 2 Person Assist Distance (Feet) 15 Able to Maintain Weight Bearing Status Yes During Gait Assistive Devices Assistive Device None Gait Belt Orthotic/Prosthetic Devices or Brace: No Gait Deviations General Gait Pattern Decreased Stride Length Decreased Feet Clearance Narrow Based Gait Step-to Gait Factors Limiting Gait Function Factors Limiting Gait Function Decreased Activity Tolerance Decreased Strength Difficulty Following Directions Incoordination Limited Range of Motion Poor Balance Poor Safety Awareness Comments Gait Comments Pt ambulated 15 ft. in room with TRADER FIXED INCOME x1 in front and modAx1 behind her. She takes very small, shuffling steps with step-to pattern. She attempts to sit as soon as she sees the recliner and requires maxA x2 and max cues to finish last few steps to recliner. M5 PT-IP Objective Assessments Start: 02/06/18 16:12 Freq: NEEDED Status: Active Protocol: Document 02/07/18 13:30 AB (Rec: 02/07/18 16:07 AB [id number]) Orientation Orientation/Cognition Level of Alertness Alert Language Function Ability Expressive Aphagia Receptive Aphagia Word Finding Difficulties Safety Awareness Decreased Safety Awareness Memory Description Short Term Impaired Snf Impaired M6 PT-IP Treatment Start: 02/06/18 16:12 Freq: NEEDED Status: Active Protocol: Document 02/07/18 13:30 AB (Rec: 02/07/18 16:07 AB [id number]) Physical Therapy Treatment Other Treatments Other Treatment Performed educated pt's daughter regarding PT POC and pt's current mobility and safety concerns M7 PT-IP Assessment and Plan Start: 02/06/18 16:12 Freq: NEEDED Status: Active Protocol: Document 11/05/18 10:29 (Rec: 02/11/18 11:58 [id number]) PT Summary Assessment and Plan Potential Rehabilitation Potential Fair Summary Impairments ROM Strength Balance Coordination Tone Cognition Bed Mobility Transfers Gait Activity Tolerance Progress Towards Goals Slow Progress due to Medical Issues Slow Progress due to Activity Tolerance Assessment Summary Pt able to ambulate 15 ft in room with TRADER FIXED INCOME x1 and modAx1 behind her, however when she saw the recliner she began to sit despite not being quite near the chair and required maxAx2 to get safely to the recliner. She demonstrates significantly impaired safety judgment and agitation and cries out but was not combative with PT. Goals Bed Mobility Goal Minimal Assistance Transfer Goal Minimal Assistance Gait Goal Minimal Assistance Gait Distance 50 Other Goals up/down 1 platform step as appropriate/desired by family and pt to safely access sunken living room. Days to Meet Goals 5 Frequency of Treatment Frequency Of Treatment Once a Day Treatment Plan Physical Therapy Treatment Plan Bed Mobility Training Transfer Training Gait Training Therapeutic Exercise Balance Retraining Discharge Planning Neuromuscular Re-ed Coordination Retraining Manual Therapy Other Recommendations and Next Treatment caregiver training Focus Recommendations To Nursing Amount of Assist Needed 2 Person Assist Discharge Recommendations PT Discharge Recommendations Home with 24/7 Assist Home Health SNF Rehab
--- NOTE | 2018-02-11 13:33 | ST.IPTN ---
Care Team Visit Care Team Role Provider Type Jesus Alberto Guevara DO Other Providers Physician Address: [facility] [place], [address] Donald Trinidad DO Emergency Provider Physician Address: [address] [place] [address], [id number] Ailin Matt DO Attending Provider Physician Family Provider Primary Care Provider Address: [address] [place] [id number] Caitlyn May DO Admit Provider Physician Other Providers Address: [address] [place] [id number] SPARE PERSON Treatment Note SPARE PERSON Treatment Note Start: 02/11/18 13:01 Freq: Status: Active Protocol: Document 02/11/18 13:02 [facility] (Rec: 02/11/18 13:19 [facility] [id number]) Speech Pathology Treatment Note Session Time Visit Start Time 12:00 Visit Stop Time 12:30 Total Visit Minutes 30 Setting Treatment Setting Acute Care Visit Type Note Type Treatment Note Next Note Type Next Note Type Discharge Summary General Information General Information Patient is a 72-year-old female with cerebral amyloid angiopathy, rheumatoid arthritis, hypertension, chronic kidney disease, 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 She was brought to [facility] on 02/04/18. She was recently discharged from [facility] after her second hemorrhagic CVA with significant deficits (aphasia primarily though right and left-sided neglect). After being discharged home, she became progressively more agitated and stopped eating. Her adult daughters have been her primary caregivers and provided patient's background history. They reported that the patient began to indicate stomach pain after she stopped eating, and she then refused to take her medication. SHe she was brought to [facility], she presented with nausea as well as diarrhea though no fevers or vomiting, and a UTI. She has a very extensive past medical history. Please see medical chart for full details . Since admission to [facility], patient has presented with delirium and agitation. She was evaluated by Dr Guevara on 02/07/18. Please see report for full details. Therapies consulted. Initial speech therapy attempt on 02/06/18 was unsuccessful due to patient's high agitation and inability to participate. A language evaluation was completed on . SPARE PERSON provided extensive family educaiton and recommended that family use familiar pictures for communication with the patient . Subjective Identification Type Name Other Others Present Family Observations/Patient Presentation Patient was awake with family present. Unable to express pain or discomfort, but no obvious signs observed. Patient perseverative in her behavior throughout time with SPARE PERSON. She frequently attempted to lie down on the window seat in her room. SPARE PERSON positioned patient's walker in front of her with gait belt in place for safety. SPARE PERSON and patient's daughter sat with the patient for additional positioning safety. Patient unable to attend to SPARE PERSON due to high perseveration on positioning and reduced receptive language ability. Did not observe patient to turn her head to SPARE PERSON with verbal cues or tactile cues. Chief Complaint(s) Speech Rehab Expectation/Goals: Parent/Guardian Improve expressive/receptive /Coding Analyst Goals communication ability Patient Knowledge/Awareness of SPARE PERSON Role Poor in Treatment Parent/Caretake Knowledge/Awareness of Good SPARE PERSON Role in Treatment Objective Short Term Goals 1. Patient will successfull answer yes/no in 8/10 attempts with use of visual aid in order to improve receptive lanuage skills needed for communication. 2. Patient will follow simple 1-step directions with visual aids in 7/10 attempts in order to improve receptive language skills needed for communication. 3. Patient will complete automatic speech tasks in order to improve communication . 4. Family will receive education for home exercise program to continue rehabilitation process outside of therapy. Recovery Collector Goals 1. Patient will establish consistent yes/no ability in order to demonstrate improved receptive language skills. 2. Patient will participate in expressive and receptive language therapy in order to improve ability to express her wants and needs to family and hospital staff. Treatment Activities Patient unable to participate in skilled treatment with SPARE PERSON due to high agitation and perseverative behavior on lying down. SPARE PERSON provided extensive family educaiton regarding identification of characteristics of aphasia, breaking things down for successful communication with the patient, trail and error during the initial stages of rehab to determine what works and does not work for intervention, perseveration, and word finding difficulties. SPARE PERSON reviewed cognitive- linguistic function in a funcitonal brain and discussed how things can be altered after single or multiple CVAs. SPARE PERSON explained the different areas of the brain and what they are responsible for ( frontal, temporal, parietal, etc), and explained why the patient may be presenting as she is. SPARE PERSON then explained how to begin to test various methods of communication for the patient, keeping in mind significantly impaired vision and receptive language skills, as well as impaired attention and high perseverative behaviors. SPARE PERSON advised the family to prioritize 1) gently gaining patient's attention/ discontinuation of perseveration through shifting attention from one task to another; then 2) targeting receptive langauge development ; then finally 3) targeting expressive langauge. SPARE PERSON explained that the patient will have greater difficulty improving in expressive langauge with reduced receptive language ability, and will also have difficulty improving in receptive language without being able to shift attention from perseverative actions to focus on the speaker for receptive language intervention. SPARE PERSON again provided soothing tactics to assist in gaining the patient's attention for participation in therapy. Strongly suspect that things could improve when the patient returns to a familiar environment. SPARE PERSON explained automatic speech tasks, initiating exchanges with yes/ no questions, and language modeling for the patient as she begins the rehabilitative process. Family verbalized understanding throughout the conversation. Assessment Patient Response to Treatment Fair Rehab Potential Fair Impairments Identified Aphasia Attention Assessment of Overall Progress Unchanged Reviewed with Patient Goals Progress Being Made Home Exercise Program Patient/Caregiver Understanding Good Plan Amount of Therapy Recommended Other Comment Patient scheduled to discharge home today; recommend home health SPARE PERSON Comment Multiple times a week, as able by home health SPARE PERSON Comment As tolerable by patient Therapeutic Contents Home Exercise Program Additional Areas of Treatment Family education Provided Patient/Caregiver Instruction Home Exercise Program Plan of Care Questions/Concerns Therapy Recommendations Continue with Current Program
--- NOTE | 2018-02-11 13:52 | CM.DPNOTE ---
DCP/continued: Reviewed chart. Order obtained or patient to d/c home today with Princess WAGNER, [facility], and daughters. Patient currently requiring 24/7 care and family in agreement. Family aware that home with patient will be challenging and they feel like they would like to try it before making any long-term decisions. Discussed long-term planning with daughter today. Provided her with list of Memory Care facilities in both [facility] and [place] per family request. Encouraged daughter to remember to take care of herself as well. P: Home today with HH, caregivers, and family support. HEATHER Avila
== END 2018-02-11 14:15 | disposition home health service (06) | DRG 70 ==
LOC: ED 15:21 → AC 18:43
PROVIDERS: Family Medicine; Admitting Provider Family Medicine; Emergency Provider Emergency Medicine; Family Provider Family Medicine; PCP Family Medicine; Visit Provider Family Medicine
DX: G93.41 Metabolic encephalopathy (principal); I61.8 Other nontraumatic intracerebral hemorrhage; E85.4 Organ-limited amyloidosis; N39.0 Urinary tract infection, site not specified; E46 Unspecified protein-calorie malnutrition; Z68.1 Body mass index [BMI] 19.9 or less, adult; I68.0 Cerebral amyloid angiopathy; R31.9 Hematuria, unspecified; I69.120 Aphasia following nontraumatic intracerebral hemorrhage; I69.112 Visuospatial deficit and spatial neglect following nontraumatic intracerebral hemorrhage; I12.9 Hypertensive chronic kidney disease with stage 1 through stage 4 chronic kidney disease, or unspecified chronic kidney disease; N18.9 Chronic kidney disease, unspecified; M06.9 Rheumatoid arthritis, unspecified; B96.20 Unspecified Escherichia coli [E. coli] as the cause of diseases classified elsewhere; Z79.52 Long term (current) use of systemic steroids; Z87.891 Personal history of nicotine dependence; G40.909 Epilepsy, unspecified, not intractable, without status epilepticus
CPT/HCPCS: 36415; 36591; 70450; 80048; 80053; 81003; 81015; 83690; 85025; 87077; 87086; 87186; 90792; 92507; 93005; 96105; 96365; 96375; 97116; 97162; 97166; 97530; 97535; 99221; 99223; 99232; 99233; 99239; 99282; 99284; C9113; J0744; J1165; J1630; J2060; S0166

== ENCOUNTER → 2018-02-18 09:04 | Outpatient (CLI) | payer MEDICARE, OTHER, SELFPAY ==
[2018-02-05 15:18] VITALS: BMI 41.0
[2018-02-18 10:59] LABS: Add Manual Diff / Slide Review NO; Basophils Percent Auto 0.4 % (0-2); Eosinophils Percent Auto 3.4 % (2-4); Hematocrit 26.7 % (36-46); Lymphocytes Percent Auto 17.8 % (25-40); Mean Corpuscular HGB Conc 33.5 % (30-36); Mean Corpuscular Hemoglobin 31.6 PG (26-34); Mean Corpuscular Volume 94.2 fL (80-100); Monocytes Percent Auto 9.5 % (3-14); Neutrophils Absolute Auto 6800 /uL (3000-5900); Neutrophils Percent Auto 68.9 % (50-75); Platelet Count 581 X10^3/uL (150-400); Red Blood Cell Count 2.84 X10^6/uL (4.0-5.2); Red Cell Distribution Width 15.5 % (11.6-14.8); White Blood Cell Count 9.9 X10^3/uL (4.5-11.0)
[2018-02-18 11:40] LABS: Alanine Aminotransferase 25 IU/L (9-52); Albumin 3.9 g/dL (3.5-5.0); Albumin Globulin Ratio 1.2 (1.0-2.8); Alkaline Phosphatase 108 U/L (38-126); Aspartate Aminotransferase 39 IU/L (14-36); Bilirubin Total 0.4 mg/dL (0.2-1.3); Blood Urea Nitrogen 20 mg/dL (7-17); Calcium 9.4 mg/dL (8.4-10.2); Carbon Dioxide 24 mmol/L (22-32); Chloride 105 mmol/L (98-107); Estimated Glomerular Filt Rate 54.7 mL/min (>60); Globulin 3.2 g/dL (1.7-4.1); Glucose 111 mg/dL (80-110); HEMOLYSIS < 15 (0-50); Potassium 3.4 mmol/L (3.4-5.1); Sodium 143 mmol/L (137-145); Total Protein 7.1 g/dL (6.3-8.2)
[2018-02-18 11:45] LABS: Phenytoin / Dilantin < 3.0 ug/mL (10-20)
== END ==
PROVIDERS: PCP Family Medicine; Visit Provider Family Medicine
DX: E61.2 Magnesium deficiency (principal); E87.6 Hypokalemia; I10 Essential (primary) hypertension; M06.9 Rheumatoid arthritis, unspecified; N18.3 Chronic kidney disease, stage 3 (moderate)
CPT/HCPCS: 36415; 80053; 80185; 85025

== ENCOUNTER 2018-03-04 10:53 | Inpatient (IN) | payer MEDICARE, OTHER, SELFPAY ==
[2018-02-05 15:18] VITALS: BMI 41.0
[2018-03-04] VITALS (12 sets, daily range): BP systolic 108–200; BP diastolic 54–87; PULSE 74–106; RESP 16–22; TEMP 35.6–38.7; O2SAT 90–96; BMI 120.9
--- NOTE | 2018-03-04 11:01 | DI.CT.S_ITS ---
PROCEDURE: CT HEAD/BRAIN WO CON INDICATIONS: right sided gaze unresponsive TECHNIQUE: Noncontrast 4.5 mm thick angled axial sections acquired from the foramen magnum to the vertex, with coronal and sagittal reformats. For radiation dose reduction, the following was used: automated exposure control, adjustment of mA and/or kV according to patient size. COMPARISON: [facility], CT, CT HEAD/BRAIN WO CON, 02/08/2018, 18:59. [facility], CT, CT HEAD/BRAIN WO CON, 12/13/2017, 9:47. FINDINGS: Image quality: Excellent. CSF spaces: Basal cisterns are patent. No extra-axial fluid collections. The ventricles are symmetric in size and shape. Brain: No intracranial masses are present but there is a large hemorrhage involving the left hemisphere, measuring up to 8 cm AP and 5 cm transverse, and approximately 4.5 cm craniocaudad. This produces approximately 5-7 mm subfalcine herniation of the midline structures from left to right.. There is cerebral volume loss for age, with resultant ventricular and sulcal prominence previously documented, including enlargement of the right occipital horn due to prior stroke or hemorrhage in that area.. There are periventricular and deep white matter chronic small vessel ischemic changes. There is intracranial internal carotid artery atherosclerosis. Skull and face: Calvarium and visualized facial bones appear intact, without suspicious lesions. Sinuses: Visualized sinuses and mastoids are clear. IMPRESSION: 1. Moderate brain parenchymal atrophy previously documented, encephalomalacia at the right occipital region previously present has not worsened. 2. There is a large left hemispheric parenchymal hemorrhage in the area of the centrum semiovale and haddad radiata measuring up to 8 cm AP and 5 cm transverse, producing relatively mild degree of midline structure shift from left to right. Intraventricular hemorrhage is not seen. This information was immediately discussed with the emergency room physician caring for the patient. Dictated by: Terry Costello M.D. on 03/04/2018 at 11:04 Approved by: Terry Costello M.D. on 03/04/2018 at 11:07
--- NOTE | 2018-03-04 11:06 | ED_ITS ---
HPI - Neuro Symptoms/Deficit General Chief Complaint: Neuro Symptoms/Deficit Stated Complaint: Stroke / Decreased LOC Time Seen by Provider: 03/04/18 10:55 Source: family, EMS and old records reviewed History of Present Illness HPI Narrative: Patient is a 72-year-old female with history of cerebral amyloid angiopathy, as 2 hemorrhagic CVAs 1 recently in December 2017 and history of ischemic CVA. Her baseline is sitting in wheelchair nonverbal but able to feed herself. Today family noticed that she was unresponsive and has a right-sided gaze. POLST= +CPR, limited interventions, no intubation Related Data Home Medications Medication Instructions Recorded Confirmed leflunomide 20 mg PO DAILY 12/13/17 03/04/18 acetaminophen 650 mg PO Q6H PRN 02/04/18 03/04/18 calcium carbonate 500 mg PO TID PRN 02/04/18 03/04/18 hydrocortisone 1 applic TOPICAL BID PRN 02/04/18 03/04/18 labetalol 1 tab PO BID 02/04/18 03/04/18 magnesium hydroxide 10 ml PO Q OTHER DAY 02/04/18 03/04/18 magnesium oxide 400 mg PO DAILY 02/04/18 03/04/18 melatonin 6 mg PO BEDTIME 02/04/18 03/04/18 prednisone 5 mg PO QAM 02/04/18 03/04/18 sennosides [senna] 17.2 mg PO BID PRN 02/04/18 03/04/18 triamcinolone acetonide 0 gm TOPICAL BID PRN 02/04/18 03/04/18 amlodipine 10 mg PO DAILY 03/04/18 03/04/18 gabapentin 300 mg PO QPM 03/04/18 03/04/18 losartan 100 mg PO DAILY 03/04/18 03/04/18 spironolactone 25 mg PO DAILY 03/04/18 03/04/18 Previous Rx's Medication Instructions Recorded lorazepam [Lorazepam Intensol] 0.5 mg PO Q4HR PRN #30 ml 02/11/18 phenytoin [Dilantin Infatabs] 100 mg PO DAILY #60 tab 02/11/18 wheel chair calf pads #2 each 02/11/18 haloperidol lactate 1 mg PO BID #30 ml 02/26/18 Allergies Allergy/AdvReac Type Severity Reaction Status Date / Time Penicillins [PENICILLINS] Allergy Mild ITCH/EARS Verified 03/04/18 11:06 FEEL FULL Sulfa (Sulfonamide Allergy Mild ITCH/EAR Verified 03/04/18 11:06 Antibiotics) FEEL FULL cephalexin [CEPHALEXIN] Allergy Unknown unknown Verified 03/04/18 11:06 coconut oil [COCONUT OIL] Allergy Unknown rash, Verified 03/04/18 11:06 itching Review of Systems Review of Systems unobtainable due to mental status [facility] Medical History 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) Essential hypertension (Chronic 04/04/11) Rheumatoid arthritis (Chronic) Intracranial hemorrhage (Acute 03/20/13) Cerebral amyloid angiopathy (Chronic 04/25/13) Sensorineural hearing loss (SNHL) of left ear (Chronic) Anxiety (Chronic 07/24/13) Sleep apnea (Chronic 07/28/13) Mixed stress and urge urinary incontinence (Chronic 01/12/14) 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) Chronic kidney disease (CKD) stage G3a/A2, moderately decreased glomerular filtration rate (GFR) between 45-59 mL/min/1.73 square meter and albuminuria creatinine ratio between 30-299 mg/g (Chronic 11/18/14) Asthma due to seasonal allergies (Chronic 06/04/15) Eczema (Chronic 03/08/16) Chronic disease anemia (Chronic 07/04/17) Anxiety (Chronic ~1999) Cataract (Chronic ~1998) Eczema (Chronic) Fecal incontinence (Chronic) Hearing loss (Chronic ~1998) Hyperlipidemia (Chronic ~1998) Hypertension (Chronic) Rheumatoid arthritis (Chronic ~1979) Seasonal allergies (Chronic ~2012) Urinary incontinence (Chronic) Vision abnormalities (Chronic) Body mass index (BMI) of 25.0 to 29.9 (Resolved 04/23/14) Campylobacter diarrhea (Resolved) Chickenpox (Resolved ~1951) Ischemic stroke (Resolved ~2013) Measles (Resolved ~1951) Mumps (Resolved ~1951) Rubella (Resolved ~1951) Surgical History History of ectopic (Resolved ~1971) History of cataract removal with insertion of prosthetic lens (~2015) History of third molar tooth extraction (~1994) History of tonsillectomy (~1951) S/P total abdominal hysterectomy and bilateral salpingo-oophorectomy (~1973) Status post appendectomy (~1973) Status post bunionectomy (~2004) Status post cholecystectomy (~1994) Social History household members: children, caregiver and other Smoking Status: Former smoker Exam Initial Vital Signs Initial Vital Signs: Vital Signs Pulse Rate 106 H 03/04/18 11:06 Respiratory Rate 22 03/04/18 11:06 Blood Pressure 200/87 H 03/04/18 11:06 Pulse Oximetry 96 03/04/18 11:06 Const Other: Right-sided gaze unresponsive to voice responsive to pain HENMT Head: normal to inspection and normocephalic Eyes Pupils: PERRL Neck Neck: normal visual inspection Chest Chest: normal inspection of the chest and normal palpation of entire chest wall Resp Auscultation: clear to auscultation bilaterally, no rhonchi and no wheezes Cardio Rhythm: regular rhythm Heart Sounds: S1 normal and S2 normal GI Inspection: normal to inspection Palpation: soft, No rigid and No tender Skin General: no rashes or lesions noted, No jaundice and No petechiae Neuro General: alert Speech: other Comatose Patient: decerebrate rigidity (Both arms) and other (Bilateral toes going upwards with Babinski) Course Orders Ordered: ED Orders 03/04/18 18:46 Consult to Pastoral Services Routine Consult to Telecommunications Field Technician Routine Hydromorphone HCl (Dilaudid) 0.5 mg IV Q2H PRN PRN Reason: Pain, Moderate (4-6) Last Admin: 03/04/18 19:25 Dose: 0.5 mg Phenytoin 150 mg/ Sodium (Chloride) 103 mls @ 103 mls/hr IV NOW YADY Last Infusion: 03/04/18 17:13 Dose: 0 mls/hr Admin: 03/04/18 14:48 Dose: 103 mls/hr Discontinued Medications Hydromorphone HCl (Dilaudid) 0.5 mg IV NOW ONE Stop: 03/04/18 12:12 Last Admin: 03/04/18 12:32 Dose: 0.5 mg Hydromorphone HCl (Dilaudid) 0.5 mg IV Q2H PRN PRN Reason: Pain, Moderate (4-6) Labetalol HCl (Trandate) 10 mg IV NOW ONE Stop: 03/04/18 11:23 Last Admin: 03/04/18 11:41 Dose: 10 mg Vital Signs - 8 hr 03/04/18 12:21 03/04/18 13:18 03/04/18 13:42 Temperature Pulse Rate 85 77 79 Respiratory Rate Blood Pressure 178/86 H Blood Pressure [Right Arm] 112/59 L 122/60 Pulse Oximetry 93 93 03/04/18 14:11 03/04/18 14:40 03/04/18 16:24 Temperature 96.1 F L Pulse Rate 77 74 Respiratory Rate 16 17 Blood Pressure 108/62 122/54 L Blood Pressure [Right Arm] Pulse Oximetry 94 92 92 MDM - Neuro Symptoms/Deficit Medical Records Attestation: I reviewed the patient's medical records. Lab Data Attestation: I reviewed the patient's lab results. Result diagrams: 03/04/18 11:00 03/04/18 11:00 Lab Results 03/04/18 03/04/18 03/04/18 Range/Units 11:00 11:00 11:00 WBC 12.4 H (4.5-11.0) X10^3/uL RBC 3.12 L (4.0-5.2) X10^6/uL Hgb 9.7 L (12.0-16.0) g/dL Hct 29.6 L (36-46) % MCV 94.8 (80-100) fL MCH 31.0 (26-34) PG MCHC 32.7 (30-36) % RDW 16.5 H (11.6-14.8) % Plt Count 573 H (150-400) X10^3/uL Neut % (Auto) 73.2 (50-75) % Lymph % (Auto) 14.5 L (25-40) % Toole % (Auto) 8.4 (3-14) % Eos % (Auto) 3.1 (2-4) % Baso % (Auto) 0.8 (0-2) % Neut # (Auto) 9100 H (6809-8686) /uL PT 12.3 (10.1-12.7) SECONDS INR 1.1 (0.9-1.3) APTT 27 D (26.4-36.2) SECONDS Sodium 147 H (137-145) mmol/L Potassium 4.0 (3.4-5.1) mmol/L Chloride 107 (98-107) mmol/L Carbon Dioxide 28 (22-32) mmol/L BUN 22 H (7-17) mg/dL Creatinine 0.90 (0.52-1.04) mg/dL Estimated GFR > 60.0 (>60) mL/min BUN/Creatinine Ratio 24.4 H (6-22) Glucose 145 H (80-110) mg/dL Calcium 9.6 (8.4-10.2) mg/dL Total Bilirubin 0.4 (0.2-1.3) mg/dL AST 28 (14-36) IU/L ALT 17 (9-52) IU/L Alkaline Phosphatase 83 (38-126) U/L Total Protein 7.3 (6.3-8.2) g/dL Albumin 4.0 (3.5-5.0) g/dL Globulin 3.3 (1.7-4.1) g/dL Albumin/Globulin Ratio 1.2 (1.0-2.8) Point of Care Testing Glucose POC [address] scan - head: Radiologist's impression: PROCEDURE: CT HEAD/BRAIN WO CON INDICATIONS: right sided gaze unresponsive TECHNIQUE: Noncontrast 4.5 mm thick angled axial sections acquired from the foramen magnum to the vertex, with coronal and sagittal reformats. For radiation dose reduction, the following was used: automated exposure control, adjustment of mA and/or kV according to patient size. COMPARISON: [facility], CT, CT HEAD/BRAIN WO CON, 02/08/2018, 18:59. [facility], CT, CT HEAD/BRAIN WO CON, 12/13/2017, 9:47. FINDINGS: Image quality: Excellent. CSF spaces: Basal cisterns are patent. No extra-axial fluid collections. The ventricles are symmetric in size and shape. Brain: No intracranial masses are present but there is a large hemorrhage involving the left hemisphere, measuring up to 8 cm AP and 5 cm transverse, and approximately 4.5 cm craniocaudad. This produces approximately 5-7 mm subfalcine herniation of the midline structures from left to right.. There is cerebral volume loss for age, with resultant ventricular and sulcal prominence previously documented, including enlargement of the right occipital horn due to prior stroke or hemorrhage in that area.. There are periventricular and deep white matter chronic small vessel ischemic changes. There is intracranial internal carotid artery atherosclerosis. Skull and face: Calvarium and visualized facial bones appear intact, without suspicious lesions. Sinuses: Visualized sinuses and mastoids are clear. IMPRESSION: 1. Moderate brain parenchymal atrophy previously documented, encephalomalacia at the right occipital region previously present has not worsened. 2. There is a large left hemispheric parenchymal hemorrhage in the area of the centrum semiovale and haddad radiata measuring up to 8 cm AP and 5 cm transverse, producing relatively mild degree of midline structure shift from left to right. Intraventricular hemorrhage is not seen. This information was immediately discussed with the emergency room physician caring for the patient. Dictated by: Terry Costello M.D. on 03/04/2018 at 11:04 MDM Narrative Medical decision making narrative: This is patient's 3rd hemorrhagic stroke in 2 and half months. Family is requesting that she go to [facility]. I have spoken with Dr. Araujo Neurology Stroke fellow at [facility] is who states that she cannot guarantee any intervention would be done. Patient's baseline status is fairly poor she has worsening declining functioning status. They are happy to accept her if family would like but not sure that there is much intervention to be done at this time. Long discussion with both sisters and 1 is the DPOA. Patient has had frequent bleed with declining functional status. This bleed is rather large. They are agreeable to comfort care. I have spoken with Dr. Matt was in the ED to evaluate patient. She said in fact [facility] told her that there was nothing else for them to do after her last stay. She is happy to admit patient for comfort care is Discharge Plan Departure Patient Disposition: Admitted As Inpatient Clinical Impression: Intracranial hemorrhage Discharge Date/Time: 03/04/18 14:33 Interventions: ED Discharge Assessment Last Done: 03/04/18 14:11 Admit Date/Time: 03/04/18 13:00 Admit Provider: Ailin Matt
[2018-03-04 11:09] LABS: Add Manual Diff / Slide Review NO; Basophils Percent Auto 0.8 % (0-2); Eosinophils Percent Auto 3.1 % (2-4); Hematocrit 29.6 % (36-46); Hemoglobin 9.7 g/dL (12.0-16.0); Lymphocytes Percent Auto 14.5 % (25-40); Mean Corpuscular HGB Conc 32.7 % (30-36); Mean Corpuscular Volume 94.8 fL (80-100); Monocytes Percent Auto 8.4 % (3-14); Neutrophils Absolute Auto 9100 /uL (3000-5900); Neutrophils Percent Auto 73.2 % (50-75); Platelet Count 573 X10^3/uL (150-400); Red Blood Cell Count 3.12 X10^6/uL (4.0-5.2); Red Cell Distribution Width 16.5 % (11.6-14.8); White Blood Cell Count 12.4 X10^3/uL (4.5-11.0)
[2018-03-04 11:21] LABS: INR 1.1 (0.9-1.3); Prothrombin Time 12.3 SECONDS (10.1-12.7)
[2018-03-04 11:24] LABS: PTT Partial Thromboplastin Tim 27 SECONDS (26.4-36.2)
[2018-03-04 11:27] LABS: Alanine Aminotransferase 17 IU/L (9-52); Albumin Globulin Ratio 1.2 (1.0-2.8); Alkaline Phosphatase 83 U/L (38-126); Aspartate Aminotransferase 28 IU/L (14-36); BUN Creatinine Ratio 24.4 (6-22); Bilirubin Total 0.4 mg/dL (0.2-1.3); Blood Urea Nitrogen 22 mg/dL (7-17); Calcium 9.6 mg/dL (8.4-10.2); Carbon Dioxide 28 mmol/L (22-32); Chloride 107 mmol/L (98-107); Estimated Glomerular Filt Rate > 60.0 mL/min (>60); Globulin 3.3 g/dL (1.7-4.1); Glucose 145 mg/dL (80-110); HEMOLYSIS 50 (0-50); Sodium 147 mmol/L (137-145); Total Protein 7.3 g/dL (6.3-8.2)
[2018-03-04] MEDS: LABETALOL 20 MG/4 ML SYRINGE 10 MG IV (11:41)
[2018-03-04] MEDS: HYDROMORPHONE 1 MG INJ 0.5 MG IV (12:32)
[2018-03-04] MEDS: SODIUM CHLORIDE 0.9% IV (14:48)
[2018-03-04] MEDS: PHENYTOIN IV (14:48)
[2018-03-04] MEDS: HYDROMORPHONE 0.5 MG INJ IV (19:25)
--- NOTE | 2018-03-04 20:51 | P.HP_ITS ---
History of Present Illness Date Patient Seen: 03/04/18 Time Patient Seen: 12:44 Chief complaint: Stroke / Decreased LOC Narrative: Patient is an unfortunate 72 yo female with cerebral amyloid angiopathy well known to me. She has had 2 hemorrhage CVA's in the past 3 months , one on the right and a second one on the left temporal. Prior to this she also had a right occipital hemorrhagic stroke and subsequent ischemic stroke. She was requiring 24/7 caregiving at home. She was ambulatory with help with direction and not support because of her visual losses. She could eat and was starting to be able to feed herself per daughter. She could communicate with difficulty with both receptive and expressive aphasia. Daughter Alena has been her caregiver with visiting angels assisting at night time. This morning she was not her usual self and was unable to cooperate in any of her care. Daughter called the clinic and she was brought here to the ED. There she was found to respond only to pain and was unable to move any extremity. CT scan showed a new hemorrhagic lesion of 5x7 cm in her left hemisphere and worsening of her right occiptal hemorrhage area. 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) Chronic kidney disease (CKD) stage G3a/A2, moderately decreased glomerular filtration rate (GFR) between 45-59 mL/min/1.73 square meter and albuminuria creatinine ratio between 30-299 mg/g (Chronic 11/18/14) Asthma due to seasonal allergies (Chronic 06/04/15) Eczema (Chronic 03/08/16) Chronic disease anemia (Chronic 07/04/17) Anxiety (Chronic ~1999) Cataract (Chronic ~1998) Eczema (Chronic) Fecal incontinence (Chronic) Hearing loss (Chronic ~1998) Hyperlipidemia (Chronic ~1998) Hypertension (Chronic) Rheumatoid arthritis (Chronic ~1979) Seasonal allergies (Chronic ~2012) Urinary incontinence (Chronic) Vision abnormalities (Chronic) Body mass index (BMI) of 25.0 to 29.9 (Resolved 04/23/14) Campylobacter diarrhea (Resolved) Chickenpox (Resolved ~1951) Ischemic stroke (Resolved ~2013) Measles (Resolved ~1951) Mumps (Resolved ~1951) Rubella (Resolved ~1951) Surgical History History of ectopic (Resolved ~1971) History of cataract removal with insertion of prosthetic lens (~2015) History of third molar tooth extraction (~1994) History of tonsillectomy (~1951) S/P total abdominal hysterectomy and bilateral salpingo-oophorectomy (~1973) Status post appendectomy (~1973) Status post bunionectomy (~2004) Status post cholecystectomy (~1994) Family & Social History Social History: household members children,caregiver,other Prior Living Arrangements House Safety & Behavioral: Feels Safe in Current Yes Environment Been Physically Hurt or No Threatened By a Person Suicidal Ideation Description None Suicide Plan Description No Plan Tobacco & Substance use: Smoking Status Former smoker alcohol intake frequency holiday/special occasion Substance Use Type marijuana Meds Home Medications Medication Instructions Recorded Confirmed Type leflunomide 20 mg PO DAILY 12/13/17 03/04/18 History acetaminophen 650 mg PO Q6H PRN 02/04/18 03/04/18 History calcium carbonate 500 mg PO TID PRN 02/04/18 03/04/18 History hydrocortisone 1 applic TOPICAL BID PRN 02/04/18 03/04/18 History labetalol 1 tab PO BID 02/04/18 03/04/18 History magnesium hydroxide 10 ml PO Q OTHER DAY 02/04/18 03/04/18 History magnesium oxide 400 mg PO DAILY 02/04/18 03/04/18 History melatonin 6 mg PO BEDTIME 02/04/18 03/04/18 History prednisone 5 mg PO QAM 02/04/18 03/04/18 History sennosides [senna] 17.2 mg PO BID PRN 02/04/18 03/04/18 History triamcinolone acetonide 0 gm TOPICAL BID PRN 02/04/18 03/04/18 History lorazepam [Lorazepam Intensol] 0.5 mg PO Q4HR PRN #30 ml 02/11/18 03/04/18 Rx phenytoin [Dilantin Infatabs] 100 mg PO DAILY #60 tab 02/11/18 03/04/18 Rx wheel chair calf pads #2 each 02/11/18 03/04/18 Rx haloperidol lactate 1 mg PO BID #30 ml 02/26/18 03/04/18 Rx amlodipine 10 mg PO DAILY 03/04/18 03/04/18 History gabapentin 300 mg PO QPM 03/04/18 03/04/18 History losartan 100 mg PO DAILY 03/04/18 03/04/18 History spironolactone 25 mg PO DAILY 03/04/18 03/04/18 History Allergies Allergy/AdvReac Type Severity Reaction Status Date / Time Penicillins [PENICILLINS] Allergy Mild ITCH/EARS Verified 03/04/18 11:06 FEEL FULL Sulfa (Sulfonamide Allergy Mild ITCH/EAR Verified 03/04/18 11:06 Antibiotics) FEEL FULL cephalexin [CEPHALEXIN] Allergy Unknown unknown Verified 03/04/18 11:06 coconut oil [COCONUT OIL] Allergy Unknown rash, Verified 03/04/18 11:06 itching Review of Systems Review of Systems unobtainable due to mental condition Exam Vital Signs (past 8 hours): - 03/04/18 13:18 03/04/18 13:42 03/04/18 14:11 Temperature Pulse Rate 77 79 77 Respiratory Rate 16 Blood Pressure 108/62 Blood Pressure [Right Arm] 112/59 L 122/60 Pulse Oximetry 93 93 94 03/04/18 14:40 03/04/18 15:00 03/04/18 16:24 Temperature 96.1 F L Pulse Rate 74 Respiratory Rate 17 Blood Pressure 122/54 L Blood Pressure [Right Arm] Pulse Oximetry 92 92 92 Oxygen Delivery Method Room Air Oxygen Flow Rate 0 Narrative Exam Narrative: GEN: Patient is lying supine on gurney with her head turned to the right, she is unreponsive HEENT: NC/AT, pupils are pinpoint, no reaction to light, unable to assess movement, oral mucosa dry, food stuck to roof of mouth, when I attempt to remove it she bites me, she does respond to suction HEART: RRR LUNGS: CTA bilaterally ABD: SOFT EXT: warm and well perfused, flacid when assessing at noon, at 17:00 the left is stiff and right right is flacid Objective Imaging CT scan - head: Radiologist's impression: IMPRESSION: 1. Moderate brain parenchymal atrophy previously documented, encephalomalacia at the right occipital region previously present has not worsened. 2. There is a large left hemispheric parenchymal hemorrhage in the area of the centrum semiovale and haddad radiata measuring up to 8 cm AP and 5 cm transverse, producing relatively mild degree of midline structure shift from left to right. Intraventricular hemorrhage is not seen. This information was immediately discussed with the emergency room physician caring for the patient. Labs Result Diagrams: 03/04/18 11:03/04/18 11:00 Labs: Laboratory Results - last 24 hr 03/04/18 03/04/18 03/04/18 11: 11: 11:00 WBC 12.4 H RBC 3.12 L Hgb 9.7 L Hct 29.6 L MCV 94.8 MCH 31.0 MCHC 32.7 RDW 16.5 H Plt Count 573 H Neut % (Auto) 73.2 Lymph % (Auto) 14.5 L [place] % (Auto) 8.4 Eos % (Auto) 3.1 Baso % (Auto) 0.8 Neut # (Auto) 9100 H PT 12.3 INR 1.1 APTT 27 D Sodium 147 H Potassium 4.0 Chloride 107 Carbon Dioxide 28 BUN 22 H Creatinine 0.90 Estimated GFR > 60.0 BUN/Creatinine Ratio 24.4 H Glucose 145 H Calcium 9.6 Total Bilirubin 0.4 AST 28 ALT 17 Alkaline Phosphatase 83 Total Protein 7.3 Albumin 4.0 Globulin 3.3 Albumin/Globulin Ratio 1.2 Assessment & Plan Plan: Assessment/Plan Narrative: 72 yo female with cerebral amyloid angiopathy here today with her 4th hemorrhagic stroke. Discussions with [facility] where patient has convalesced after her other episodes was consulted from the emergency department and confirms what they had told us during her last hospitalization that there would be nothing that they could do. Family is in agreement regarding patient's wishes to transition from full code to do not resuscitate should the need arise. Family agree that patient would not want to continue to live if she were in the condition that patient currently finds herself. Also imaging supports a severe insult that she is highly unlikely to recover. Will assure patient's comfort. Pain medication, antinausea medications available. Will continue haldol since she has been receiving this medication regularly at home. She did have a seizure with her last stroke so will continue her phenytoin as a prophylactic per families request. Will monitor overnight and continue discussions in the morning. Family has been very good about caring for her at home during a very difficult time and will likely want to take her home with hospice once we have a better idea of how things will progress. I do not anticipate that she will recover from this. DVT prophylaxis: contraindicated with her bleed. CODE STATUS: DNR Would anticipate that she will be here for at least 2 midnights until we can get hospice services set up at home. Time Spent With Patient Time with patient: Greater than 35 minutes (75 minutes was spent with patient and family discussing plans and goals of care) Scores GCS Wandy coma scale eye opening: To pressure Henry coma scale verbal response: None Wandy coma scale motor response: Extension Wandy coma scale total score: 5 Quality VTE Deep Vein Thrombosis/Pulmonary Embolism Present on Admission: No
--- NOTE | 2018-03-04 21:24 | PC.ADMIT ---
Admission Note: assumed care of pt from ED. report called. Pt arrived to floor at 1440 with two daughters. daughters completed admission assessment. family is tearful. Pt changed and repositioned in bed. Pt has suction at bedside. meds given per JUN. Pt tolerating. discussed care measures with pt's family. they don't want oxygen to be administered. Pt has been comfortable, discussed pain medications and options. family comes out and alerts staff if pt needs assistance. md in to assess pt around 1800- orders written. will continue to monitor pt for safety. Pt repositioned frequently and upon family request. family does refuse turning at times. will continue to monitor.
--- NOTE | 2018-03-04 21:26 | PC.NURSE ---
Addendum entered by Isidra Lamar R.N. 03/04/18 21:59: discussed medications with family. they refused her haldol tonight as they said they give it to her when she doesn't sleep, but they haven't given it to her a few times in the past so they want to hold off. Provided oral care to pt and taught family how to mouth swab and suction. reiterated that they can call and we can do this as much as they feel she needs. will continue to monitor. Original Note: evening shift- pt care completed. suction at bedside. Pt had an episode of vomiting. pt cleaned up, repositioned. upon turning pt, pt had small bm, and changed. while cleaning pt up, pt also voided a large amount and started stooling again, a large amount. Pt was pushing stool out. oral care performed, bed bath performed. linens changed. family at bedside. MD in to assess pt. family aware and discussed options with family members. multiple family members in to visit with pt.
[2018-03-04] MEDS: LABETALOL 20 MG/4 ML SYRINGE 5 MG IV (23:57)
[2018-03-04] MEDS: ONDANSETRON 4 MG/2 ML INJ IV (23:58)
[2018-03-05] VITALS (20 sets, daily range): BP systolic 114–186; BP diastolic 55–109; PULSE 79–137; RESP 14–30; TEMP 37.5–39.2; O2SAT 36–90
[2018-03-05] MEDS: HYDROMORPHONE 0.5 MG INJ IV ×8 (01:28→23:42)
[2018-03-05] MEDS: ONDANSETRON 4 MG/2 ML INJ IV ×3 (04:15→23:43)
[2018-03-05] MEDS: LABETALOL 20 MG/4 ML SYRINGE 5 MG IV ×4 (06:35→23:42)
[2018-03-05] MEDS: ACETAMINOPHEN 650 MG SUPP PR ×3 (09:42→23:42)
[2018-03-05] MEDS: SODIUM CHLORIDE 0.9% FLUSH 10 ML IV ×4 (09:43→21:42)
--- NOTE | 2018-03-05 13:24 | PC.NURSE ---
Day Shift- Pt unresponsive. Has had eyes open and non focused on objects or persons. Repositioned in bed supported with pillows. Temp 100.4F, prn Tylenol supp given at 09:42, upon reassessment temp was 99.7f AX. Plan for schedule Labetalol per Dr. Matt and family conference, no scheduled Haldol and no coronado catheter at this time. pt had 1 large and 1 small urinary inc, barrier cream applied, no skin breakdown. Bony prominence over tailbone, red and blanchable. Daughters Alysa and Alena rotating at bedside. Yaunker suction X2 for oral secretions.
--- NOTE | 2018-03-05 14:32 | P.PN_ITS ---
Subjective Date Patient Seen: 03/05/18 Time Patient Seen: 08:22 Interval history: Patient was lying in bed when I arrived. Non-responsive. Daughters at bedside. 4 episodes of vomiting overnight. Patient does open eyes on occassion but does not turn head. Exam Vital Signs (past 8 hours): - 03/05/18 06:32 03/05/18 06:35 03/05/18 09:42 Temperature 99.5 F 100.4 F H Pulse Rate 79 Respiratory Rate Blood Pressure 157/81 H Pulse Oximetry 03/05/18 10:45 03/05/18 10:46 03/05/18 11:27 Temperature 100.4 F H Pulse Rate 100 H 100 H 122 H Respiratory Rate 14 Blood Pressure 184/80 H 184/80 H 186/109 H Pulse Oximetry 88 L 03/05/18 11:30 03/05/18 11:50 03/05/18 12:33 Temperature 99.7 F H 99.7 F H Pulse Rate 99 H Respiratory Rate 22 Blood Pressure 134/72 Pulse Oximetry 85 L Oxygen Delivery Method Room Air Oxygen Flow Rate 0 Narrative Exam Narrative: GEN: Patient is lying recumbent on bed with her head turned to the right, she is unresponsive HEENT: NC/AT, pupils are pinpoint, difficult to detect reaction to light, unable to assess movement, right eye deviated right, left eye remains oriented straight ahead, oral mucosa dry, she does open eyes when I lift one lid HEART: RRR LUNGS: CTA bilaterally ABD: SOFT EXT: warm and well perfused, no spontaneous movement NEURO: babinski upgoing right and patient withdrawals on the left, right side is flacid, tone on the left Objective Labs Result Diagrams: 03/04/18 11:00 03/04/18 11:00 Assessment & Plan Plan: Assessment/Plan Narrative: 72 yo female with cerebral amyloid angiopathynow with her 4th hemorrhagic stroke , large 5 x 7 cm left sided. Discussions with [facility] where patient had convalesced after her other episodes was consulted from the emergency department and confirms what they had told us during her last hospitalization that there would be nothing that they could do. Both daughters agree that patient would not want to continue to live if she were in the condition that patient currently finds herself. Also imaging supports a severe insult that she is highly unlikely to recover. GCS score today 6. Will assure patient's comfort. Pain medication, antinausea medications available. Will discontinue haldol today since she has not been agitated. She did have a seizure with her last stroke so will continue her phenytoin as a prophylactic. Hospice consult for today. Ultimate goal is to take patient home with hospice. Will keep her comfortable until this transition can be safely made. DVT prophylaxis: contraindicated with her bleed. CODE STATUS: DNR Would anticipate that she will be here for 24-48 hours until we can get hospice services set up at home. Time Spent With Patient Time with patient: Greater than 35 minutes (Discussing plan of care with family and reviewing images. ) Quality VTE Deep Vein Thrombosis/Pulmonary Embolism Present on Admission: No
--- NOTE | 2018-03-05 23:41 | PC.NURSE ---
Addendum entered by Isidra Lamar R.N. 03/05/18 23:44: pt has reddened coccyx, barrier cream applied, repositioned frequently, skin intact. Original Note: late entry- nina shift- pt given prns fas frequent as ordered. pt repositioned per family. family educated about end of life, but needing frequent reteaching. Pt suctioned and oral care provided. Pt bites and spits out the sponges and suction. pt did open eyes with oral care. Pt propped with pillows. will continue to monitor. Pt has many family members at bedside.
[2018-03-06] VITALS (9 sets, daily range): BP systolic 101–128; BP diastolic 56–63; PULSE 119–144; RESP 24–42; TEMP 37.5–38.5; O2SAT 2–82
[2018-03-06] MEDS: HYDROMORPHONE 0.5 MG INJ IV ×5 (02:41→14:04)
[2018-03-06] MEDS: ONDANSETRON 4 MG/2 ML INJ IV (05:29)
[2018-03-06] MEDS: ACETAMINOPHEN 650 MG SUPP PR ×2 (05:35→23:42)
[2018-03-06] MEDS: LORazepam 2 MG/ML SYRINGE 0.5 MG IV ×2 (08:16→16:15)
[2018-03-06] MEDS: ATROPINE 1% OPHTH 2 DROPS SL (08:16)
[2018-03-06] MEDS: SCOPOLAMINE 1 PATCH TOP (08:17)
[2018-03-06] MEDS: SODIUM CHLORIDE 0.9% FLUSH 10 ML IV ×3 (08:17→23:48)
--- NOTE | 2018-03-06 13:46 | PM.PN.1 ---
Subjective Date Patient Seen: 03/06/18 Time Patient Seen: 07:46 Interval history: Patient is lying in bed, nonresponsive. Daughters and sister at bedside. She has had fever and tachycardia overnight. Her breathing is noisy and labored. Returned at lunch time after scopalmine patch had been placed and supplemental oxygen. Patient appears much more relaxed at this time. Returned again after clinic and patient was being bathed. Again unresponsive. Exam Vital Signs (past 8 hours): Oxygen Delivery Method Room Air Oxygen Flow Rate 0 Narrative Exam Narrative: GEN: Patient is lying recumbent on bed with her head turned to the right, she is unresponsive, eyes are fixed HEENT: NC/AT, pupils are pinpoint, no reaction to light, oral mucosa dry HEART: RRR LUNGS: CTA bilaterally ABD: SOFT EXT: warm and well perfused, no spontaneous movement NEURO: babinski upgoing right and patient withdrawals on the left, right side is flacid, tone on the left Objective Labs Result Diagrams: 03/04/18 11:00 03/04/18 11:00 Assessment & Plan Plan: Assessment/Plan Narrative: 72 yo female with cerebral amyloid angiopathynow with her 4th hemorrhagic stroke, large 5 x 7 cm left sided. Discussions with [facility] where patient had convalesced after her other episodes was consulted from the emergency department and confirms what they had told us during her last hospitalization that there would be nothing that they could offer and that her prognosis was poor and high risk of repeat bleeds. This is her third in 3 months. Both daughters agree that patient would not want to continue to live if she were in the condition that patient currently finds herself. Also imaging supports a severe insult that she is highly unlikely to recover with very high risk of repeat hemorrhage. Coma. Glagow Coma Score today at 6. Midline shift from left to right due to bleed and edema. Right hemiparesis. Limited medical interventions. POLST form completed and placed on file. Will assure patient's comfort. Pain medication with plan to transition to home with hospice care. antinausea medications available. She did have a seizure with her last stroke so will continue her phenytoin as a prophylactic. Hospice has visited yesterday with paperwork signed. Plan is to open at home tomorrow morning. DVT prophylaxis: contraindicated with her bleed. CODE STATUS: DNR Will discharge tomorrow to home with hospice unless patient deteriorates significantly overnight and would likely during the day. Time Spent With Patient Time with patient: Greater than 35 minutes (Discussing plan of care with family, signing POLST, reviewing images again.) Quality VTE Deep Vein Thrombosis/Pulmonary Embolism Present on Admission: No
--- NOTE | 2018-03-06 14:00 | CM.DPC ---
DCP Cont: Reviewed chart and spoke w/ DAVE Ervin; she explained pt may not survive the next 24 hrs. Placed call to Crissy at [facility], they are delivering DME today and can open for admission tomorrow morning. Met w/pt's dtr Alysa; asked her and other family present; do you want to attempt DC home today w/Hospice to open tomorrow? Alysa understands pt could pass in the hospital but does not want pt to go home w/o Hospice service in place to assist w/medical and medication management. Relayed above to Dr Matt, DAVE Ervin, and W. Requested that Dr Matt complete DC medications today, also requested an updated POLST. P: DC home tomorrow morning if pt survives the night; home w/family and immediate Hospice f/u via BLS; likely approx 1000. Following closely. HEATHER Hardy
[2018-03-06] MEDS: PHENYTOIN IV (15:12)
[2018-03-06] MEDS: SODIUM CHLORIDE 0.9% IV (15:12)
[2018-03-06] MEDS: fentaNYL 12 MCG/PATCH TOP ×2 (15:20→16:06)
--- NOTE | 2018-03-06 16:09 | PC.NURSE ---
Addendum entered by Ted Miller R.N. 03/06/18 16:21: 0.5mg ivp ativan given per family request Original Note: FENT. PATCH PLACED TO RIGHT DELTOID,FAMILY MEMBERS HAD REMOVED NEWLY PLACED FENT.PATCH
[2018-03-06] MEDS: MORPHINE 10 MG/0.5 ML ORAL SYRINGE 5 MG PO ×2 (20:41→23:42)
[2018-03-06] MEDS: LABETALOL 20 MG/4 ML SYRINGE 5 MG IV (23:41)
[2018-03-07 00:03] VITALS: O2SAT 82
--- NOTE | 2018-03-07 00:09 | PC.NURSE ---
Addendum entered by Agatha Godinez R.N. 03/07/18 06:39: No change in patient condition. RR remains in high 20's with HR of 129. Oxygen at 7L/min and sat is 85%. Family requests no BP be done so Metoprolol not given. Did request Morphine and Ativan so both administered at this time. Original Note: Addendum entered by Agatha Godinez R.N. 03/07/18 05:17: Condition remains unchanged; family requests Dilaudid be administered. Original Note: Addendum entered by Agatha Godinez R.N. 03/07/18 03:47: Dr Matt informed that family feels patient is not comfortable with currently use of Fentanyl, Morphine and Ativan. Informed of earlier vital signs, increase in O2 for sat of 88% but continued labored respirations with rate of 27. See new orders. Original Note: Addendum entered by Agatha Godinez R.N. 03/07/18 01:50: Per family request patient again medicated with Morphine for FLACC of 04/18 Original Note: Addendum entered by Agatha Godinez R.N. 03/07/18 01:43: Respirations more labored and family feels she is more uncomfortable. Incontinent pad changed, patient turned and Ativan administered. O2 also increased to 7L/min and HOB elevated. Temp rechecked and now 100.8; ice packs applied to axilla Original Note: Patient unresponsive with FLACC of 0 but family present in room and feel patient is uncomfortable as evidenced by her having eyes open and slight movement of left hand so medicated with Morphine per their request. Elevated temp at 101.3 so medicated with Tylenol suppository. HRR but tachy at 129; medicated with Labetolol. Breathing shallow and breath sounds diminished but CTA. On oxygen at 4L/min per NC with sat of 82%. BT absent. Wearing brief and has been incontinent of urine but currently dry. Coccyx/sacrum deep red but without breakdown. Family requests patient not be repositioned unless they call. No mottling noted. Bed alarm being used at RN discretion and family request.
[2018-03-07] MEDS: LORazepam 2 MG/ML ORAL SOL 0.5 MG PO ×3 (01:28→09:16)
[2018-03-07 01:41] VITALS: TEMP 38.2
[2018-03-07] MEDS: MORPHINE 10 MG/0.5 ML ORAL SYRINGE 5 MG PO (01:48)
[2018-03-07] MEDS: fentaNYL 12 MCG/PATCH TOP (04:02)
[2018-03-07] MEDS: MORPHINE 10 MG/0.5 ML ORAL SYRINGE PO ×3 (04:03→09:17)
[2018-03-07] MEDS: HYDROMORPHONE 0.5 MG INJ IV ×2 (05:07→10:16)
[2018-03-07] MEDS: SODIUM CHLORIDE 0.9% FLUSH 10 ML IV (05:08)
[2018-03-07 06:41] VITALS: O2SAT 85
[2018-03-07 07:55] VITALS: PULSE 138; RESP 32; O2SAT 83
--- NOTE | 2018-03-07 08:39 | P.DS_ITS ---
History of Present Illness Date Patient Seen: 03/07/18 Time Patient Seen: 07:21 Chief complaint: Stroke / Decreased LOC Narrative: Patient is an unfortunate 72 yo female with cerebral amyloid angiopathy well known to me. She has had 2 hemorrhage CVA's in the past 3 months , one on the right and a second one on the left temporal. Prior to this she also had a right occipital hemorrhagic stroke and subsequent ischemic stroke. She was requiring 24/7 caregiving at home. She was ambulatory with help with direction and not support because of her visual losses. She could eat and was starting to be able to feed herself per daughter. She could communicate with difficulty with both receptive and expressive aphasia. Daughter Alena has been her caregiver with visiting angels assisting at night time. This morning she was not her usual self and was unable to cooperate in any of her care. Daughter called the clinic and she was brought here to the ED. There she was found to respond only to pain and was unable to move any extremity. CT scan showed a new hemorrhagic lesion of 5x7 cm in her left hemisphere and worsening of her right occiptal hemorrhage area. Discharge Providers Date of admission: 03/04/18 13:00 Primary care physician: Ailin Matt DO Consults: 03/04/18 18:46 Consult to Pastoral Services Routine Comment: [facility] had their own pstroal care services in Consult to Film Washer Routine Comment: Discharge provider: Ailin Matt DO Discharge Date: 03/07/18 Summary Discharge Diagnosis: Acute intracerebral hemorrhage Coma Cerebral amyloid angiopathy Hypertension Rheumatoid arthritis Hospital Course: 72 yo female with cerebral amyloid angiopathynow with her 4th hemorrhagic stroke, large 5 x 7 cm left sided. Discussions with [facility] where patient had convalesced after her other episodes was consulted from the emergency department and confirms what they had told us during her last hospitalization that there would be nothing that they could offer and that her prognosis was poor and high risk of repeat bleeds. This is her third in 3 months. Both daughters agree that patient would not want to continue to live if she were in the condition that patient currently finds herself. Also imaging supports a severe insult that she is highly unlikely to recover with very high risk of repeat hemorrhage. Maximum Glagow Coma Score achieved was 6, withdrawals to pain only on the left 4 , no eye opening or verbalization. Midline shift from left to right due to bleed and edema. Right hemiparesis. No change from admission. She was comfortable with a fentanyl path and oral morphine. Scopalamine patch was used to help with secretions. Arrangements were made for these medications to continue until hospice was in place. They will assume care at 11 am today. Family are honoring her wishes to at home. Her respiratory rate and oxygen saturation declined and she appeared very uncomfortable so supplemental oxygen was given and will be continued at home for comfort. DVT prophylaxis: contraindicated with her bleed. CODE STATUS: DNR She did peacefully later that night at home with her family. Status at Discharge Cognitive/behavioral status at discharge: Coma Functional status at discharge: bed bound Overall status at discharge: patient is not back to baseline Time Spent with Patient Greater than 30 minutes Exam Vital Signs (past 8 hours): - 03/07/18 01:41 03/07/18 06:41 Temperature 100.8 F H Pulse Oximetry 85 L Oxygen Delivery Method Nasal Cannula Oxygen Flow Rate 7 Objective Labs Result Diagrams: 03/04/18 11:00 03/04/18 11:00 Discharge Plan Discharge Plan Patient Disposition: Hospice - Home Discharge Med Rec/Prescriptions Prescriptions: New lorazepam [Lorazepam Intensol] 2 mg/mL Concentrate See Label Instructions .ROUTE .COMPLEX PRN (Reason: agitation) Qty: 30 RF: 0 morphine concentrate 20 mg/mL Syringe 10 mg PO Q2HR PRN (Reason: Pain, Severe (7-10)) Qty: 50 RF: 0 fentanyl 25 mcg/hr patch 72 hour 1 patch Transdermal Q72H Qty: 1 RF: 0 morphine concentrate 100 mg/5 mL (20 mg/mL) solution See Label Instructions .ROUTE .COMPLEX PRN (Reason: dyspnea) Qty: 30 RF: 0 scopolamine base [Transderm-Scop] 1 mg over 3 days Patch 3 Day 1 patch Topical Q72H Qty: 1 RF: 0 prochlorperazine [Compazine] 25 mg suppository 25 mg FL Q12H PRN (Reason: nausea and vomiting) Qty: 12 RF: 0 atropine 1 % Drops 2 drop Sublingual Q2HR PRN (Reason: Secretions) Qty: 15 RF: 0 Changed haloperidol lactate 2 mg/mL concentrate 1 mg PO BID PRN (Reason: Vomiting) Qty: 30 RF: 1 Discontinued wheel chair calf pads Qty: 2 RF: 0 No Action leflunomide 20 mg tablet 20 mg PO DAILY RF: 0 hydrocortisone 1 % cream 1 applic Topical BID PRN (Reason: Itching) RF: 0 labetalol 100 mg tablet 1 tab PO BID RF: 0 sennosides [senna] 8.6 mg Tablet 17.2 mg PO BID PRN (Reason: Constipation) RF: 0 acetaminophen 325 mg Tablet 650 mg PO Q6H PRN (Reason: pain) RF: 0 prednisone 5 mg tablet 5 mg PO QAM RF: 0 melatonin 3 mg Tablet 6 mg PO BEDTIME RF: 0 magnesium oxide 400 mg (241.3 mg magnesium) Tablet 400 mg PO DAILY RF: 0 calcium carbonate 500 mg calcium (1,250 mg) Tablet,Chewable 500 mg PO TID PRN (Reason: Heartburn) RF: 0 magnesium hydroxide 2,400 mg/10 mL Suspension 10 ml PO Q OTHER DAY RF: 0 triamcinolone acetonide 0.1 % cream Topical BID PRN (Reason: Rash) RF: 0 lorazepam [Lorazepam Intensol] 2 mg/mL Concentrate 0.5 mg PO Q4HR PRN (Reason: Anxiety) Qty: 30 RF: 0 phenytoin [Dilantin Infatabs] 50 mg Tablet,Chewable 100 mg PO DAILY Qty: 60 RF: 1 spironolactone 25 mg tablet 25 mg PO DAILY RF: 0 amlodipine 10 mg Tablet 10 mg PO DAILY RF: 0 gabapentin 300 mg Capsule 300 mg PO QPM RF: 0 losartan 100 mg Tablet 100 mg PO DAILY RF: 0 Follow up/Referrals: Ailin Matt DO [Primary Care Provider] - (please schedule follow up with dr vargas after discharge from hospital) Provider Discharge Instructions Diet: Diet as Tolerated Diet comment: Hospice care. Visit Report/Discharge Packet Instructions: DI for Oxygen Therapy -- Adult, How to Perform Oxygen Therapy via Cannula, Fentanyl Transdermal Patch Visit Report Forms: Stroke Signs & Symptoms Discharge Data Primary Care Provider: Ailin Matt Attending Provider: Ailin Matt Admit Date/Time: 03/04/18 13:00 Discharges patient from system. Discharge Date/Time: 03/07/18 10:20 Quality VTE Deep Vein Thrombosis/Pulmonary Embolism Present on Admission: No
[2018-03-07] MEDS: PHENYTOIN IV (09:16)
[2018-03-07] MEDS: SODIUM CHLORIDE 0.9% IV (09:16)
--- NOTE | 2018-03-07 11:39 | CM.DPC ---
DC Note: Coordinated final details of pt's DC home w/family and Hospice f/u this morning. Dr Matt, RN Aziza, and family all in agreement with plan this morning. Dr Matt completed DC order and comfort med Rx for family to fill. senior administrative assistant Matt scheduled BLS for 1000 p/u. This ROLLER PRESSER OPERATOR reviewed medical chart and completed medical necessity form for BLS transportation, signed by this ROLLER PRESSER OPERATOR. Notified Crissy at [facility] of p/u time and plan. [facility] RN will arrive at pt's home approx 1100. P: Home today w/family, BLS, and Hospice to provide end of life management. Family left w/ Rx for comfort meds. POLST form was updated yesterday and sent with pt/family. HEATHER Hardy
--- NOTE | 2018-03-07 12:11 | PC.NURSE ---
Discharge: Family feels ready to d/c pt home today w/hospice. Equipment delivered yesterday, oxygen delivered today. BLS transport arranged. D/c instructions reviewed with dtrs. Pt received morphine, ativan and a sm dose of IV dilaudid prior to leaving. IV was d/c. Discussed O2 use. In giving meds buccal one dtr did give med. She did this correctly - she wanted to be sure she could give it at home. Will be seen by hospice today for further medication instructions. Questions answered. Pt transfered home via bls transport.
== END 2018-03-07 10:20 | disposition hospice, home (50) | DRG 64 ==
LOC: ED 12:21 → AC 13:22
PROVIDERS: Admitting Provider Family Medicine; Emergency Provider Emergency Medicine; PCP Family Medicine; Visit Provider Family Medicine
DX: I61.2 Nontraumatic intracerebral hemorrhage in hemisphere, unspecified (principal); G93.6 Cerebral edema; E85.4 Organ-limited amyloidosis; G81.91 Hemiplegia, unspecified affecting right dominant side; R40.2323 Coma scale, best motor response, extension, at hospital admission; R40.2123 Coma scale, eyes open, to pain, at hospital admission; R40.2213 Coma scale, best verbal response, none, at hospital admission; I68.0 Cerebral amyloid angiopathy; R40.20 Unspecified coma; I10 Essential (primary) hypertension; Z87.891 Personal history of nicotine dependence; Z66 Do not resuscitate; M06.9 Rheumatoid arthritis, unspecified; Z51.5 Encounter for palliative care
CPT/HCPCS: 36591; 70450; 80053; 82962; 85025; 85610; 85730; 96374; 99223; 99233; 99239; 99283; 99285; J1165; J1170; J1630; J2060; J2405